=== PATIENT | male | born 1955 | race Caucasian/White ===

== ENCOUNTER 2021-03-24 09:22 | Inpatient (IN) | payer OTHER, SELFPAY ==
[2021-03-24] VITALS (73 sets, daily range): BP systolic 103–144; BP diastolic 53–73; PULSE 61–108; RESP 13–38; TEMP 35.6–36.6; O2SAT 86–97
--- NOTE | 2021-03-24 09:45 | RT.EKG_ITS ---
APPROVED REPORT Exam: Resting ECG Reason for Exam: sob Patient Location: E HR:86 bpm ECG Measurements Heart Rate 86 AXIS OR 148 P 53 QRSd 85 QRS 40 QT 352 T 23 QTc 422 Conclusion Sinus rhythm...normal P axis, V-rate 60- 99 Anteroseptal Q >40mS, V1-V2
--- NOTE | 2021-03-24 09:50 | DI.CT_ITS ---
Exam(s) CT CHEST PE CTA EXAM: CT CHEST PE CTA CLINICAL HISTORY: Covid +, sob. TECHNIQUE: Imaging Protocol: Axial CT angiography was performed with multi-slice acquisition and mu lti-planar and/or 3D reconstructions. CONTRAST MATERIAL: Intravenous: Omnipaque 350 Contrast volume:100 mL COMPARISON: No exams were available for comparison FINDINGS: Tracheobronchial tree: Patent where visualized. Pulmonary parenchyma: Multifocal bilateral ground-glass opacities are identified predominantly in the lower lobes. Mild centrilobular emphysema. No pulmonary nodules. Pulmonary Arteries: No evidence of filling defect to suggest pulmonary emboli. Mediastinum and Jill: Mildly enlarged reactive mediastinal and hilar lymph nodes. Small hiatal herni a. Visualized thyroid gland: Unremarkable. Pleura: No effusion or pneumothorax. Heart: Mild cardiomegaly. Coronary artery calcification. No pericardial effusion. Aorta: Thoracic aorta non-dilated. Atherosclerosis. No dissection. Upper abdomen: Unremarkable. Soft tissues: Unremarkable. Bones: Within normal limits for the patient's age. IMPRESSION: 1. No evidence of pulmonary embolism, thoracic aortic dissection or aneurysm. 2. Multifocal bilateral ground-glass opacities predominantly in the lower lobes. The findings are wetzel spicious for pneumonia and are consistent with COVID-19 pulmonary findings. 3. Results of this exam have been verbally communicated with provider. RADIATION DOSE DELIVERED: 329.2mGy.cm Total DLP DATA REPOSITORY: All CT scans at this facility are submitted to the National Radiology Data Registry (NRDR) Dose Index Registry (DIR) with the [employer] ([employer]). RADIATION OPTIMIZATION: All CT scans at this facility use at least one of these dose optimization te chniques: automated exposure control; mA and/or kV adjustment per patient size (includes targeted exa ms where dose is matched to clinical indication); or iterative reconstruction.
--- NOTE | 2021-03-24 09:53 | ED.GENADUL_ITS ---
Discharge Plan Disposition Patient Disposition: [facility] INPATIENT Condition: Serious Discharge Details Clinical Impression: COVID-19, DKA (diabetic ketoacidosis) Primary Care Provider: Unknown,Unknown ED Provider: Donavan Ness Home Meds and New Rx's Prescriptions: No Action No Known Home Meds RF: 0 Medical Decision Making This is a 65-year-old male, former smoker, denies significant past medical history who tested positive for Covid on March 13, developed symptoms on March 10. He was vaccinated, 2 doses of the Pfizer vaccine. He presents today for ongoing cough, shortness of breath, worse with exertion. He has been monitoring his home O2 sats and they have been in the mid to high 80s at home. Patient presents with mild tachycardia and tachypnea but is speaking in full sentences. O2 sat was noted to be 86% on room air. Patient states that he feels slightly short of breath now but if he was to get up, walk, exert himself things would become much worse. Lungs are diminished bilaterally lower bases. Given his presentation, will obtain cardiac work-up including a single troponin, EKG, will not obtain chest x-ray and rather go straight to CTA for potential PE rule out. Given his shortness of breath we will also obtain a BNP. Patient is 14 days into his Covid course and therefore is not a candidate for MAB. Will provide a single dose of IV Solu-Medrol Initial laboratory values reveal no evidence of leukocytosis or anemia. Procalcitonin of 0.4, lactate of 1.2. Patient with a slightly elevated anion gap. Glucose of 301 magnesium 2.0 BNP 272, troponin less than 0.05. Covid positive. Blood cultures pending CTA negative for PE, consistent with Covid Given the patient is Covid positive, requiring supplemental oxygen, I do believe the patient will require admission. Case discussed with Dr. Michaels, request a urinalysis to assess for potential ketones in DKA prior to admission. In the meantime we will also obtain blood cultures and provide IV doxycycline and Rocephin Urinalysis with greater than 160 ketones. Case once again discussed with Dr. Michaels, will initiate lactated Ringer's at 200/h and initiate a insulin drip per protocol. She will write admission orders. Imaging Data Radiologic Study: Attestation: I personally reviewed and interpreted this imaging study as follows: Imaging: CT Scan Radiologist's impression: Exam(s) a CT:CT chest PE CTA Exam(s) CT CHEST PE CTA EXAM: CT CHEST PE CTA CLINICAL HISTORY: Covid +, sob. TECHNIQUE: Imaging Protocol: Axial CT angiography was performed with multi- slice acquisition and multi-planar and/or 3D reconstructions. CONTRAST MATERIAL: Intravenous: Omnipaque 350 Contrast volume:100 mL COMPARISON: No exams were available for comparison FINDINGS: Tracheobronchial tree: Patent where visualized. Pulmonary parenchyma: Multifocal bilateral ground-glass opacities are identified predominantly in the lower lobes. Mild centrilobular emphysema. No pulmonary nodules. Pulmonary Arteries: No evidence of filling defect to suggest pulmonary emboli. Mediastinum and Jill: Mildly enlarged reactive mediastinal and hilar lymph nodes. Small hiatal hernia. Visualized thyroid gland: Unremarkable. Pleura: No effusion or pneumothorax. Heart: Mild cardiomegaly. Coronary artery calcification. No pericardial effusion. Aorta: Thoracic aorta non-dilated. Atherosclerosis. No dissection. Upper abdomen: Unremarkable. Soft tissues: Unremarkable. Bones: Within normal limits for the patient's age. IMPRESSION: 1. No evidence of pulmonary embolism, thoracic aortic dissection or aneurysm. 2. Multifocal bilateral ground-glass opacities predominantly in the lower lobes. The findings are suspicious for pneumonia and are consistent with COVID-19 pulmonary findings. 3. Results of this exam have been verbally communicated with provider. Lab Data Lab results reviewed: Yes I reviewed the patient's lab results. Labs: 03/24/21 12:47 Blood Blood Culture - Pending 03/24/21 12:30 Blood Blood Culture - Pending Laboratory Tests Range/Units 03/24/21 03/24/21 03/24/21 09:52 09:52 09:52 WBC (4.4-10.8) 10^3/uL RBC (4.36-5.78) 10^6/uL Hgb (13.5-17.5) g/dL Hct (40.0-50.0) % MCV (80-95) fL MCH (27.0-33.0) pg MCHC (32.0-36.0) % RDW (11.8-14.1) % Plt Count (130-400) 10^3/uL MPV (8.0-11.0) fL Immature Gran % Neutrophils % Lymphocytes % Monocytes % Eosinophils % Basophils % Nucleated RBC % % Absolute Neutrophils (1.2-6.7) 10^3/uL Absolute Lymphocytes (1.2-3.4) 10^3/uL Absolute Monocytes (0.1-0.8) 10^3/uL Absolute Eosinophils (0.0-0.7) 10^3/uL Absolute Basophils (0.0-0.2) 10^3/uL PT (9.3-11.0) sec 9.8 INR (0.9-1.1) 1.0 APTT (21.0-27.5) sec 26.4 VBG Lactate (0.6-1.4) mmol/L 1.2 Sodium (136-145) mmol/L Potassium (3.5-5.1) mmol/L Chloride (98-107) mmol/L Carbon Dioxide (21.0-32.0) mmol/L Anion Gap (3-11) mmol/L BUN (7-18) mg/dL Creatinine (0.70-1.30) mg/dL Estimated GFR/1.73 m2 (mL/min/1.73m2) Glucose (74-106) mg/dL Calcium (8.5-10.1) mg/dL Magnesium (1.8-2.4) mg/dL Total Bilirubin (0.2-1.0) mg/dL AST (15-37) U/L ALT (16-63) U/L Alkaline Phosphatase (46-116) U/L Troponin I (<0.06) ng/mL NT-Pro-B Natriuret Pep (<300) pg/mL 272 Total Protein (6.4-8.2) g/dL Albumin (3.4-5.0) g/dL Procalcitonin ng/mL 0.4 Urine Color (Yellow) Urine Clarity (Clear) Urine pH (5-8) Ur Specific Danese (1.005-1.025) Urine Protein (Negative) mg/dL Urine Ketones (Negative) mg/dL Urine Blood (Negative) Urine Nitrite (Negative) Urine Bilirubin (Negative) Urine Urobilinogen (Up TO 0.2) EU/dL Ur Leukocyte Esterase (Negative) Urine RBC (0-2) HPF Urine WBC (0-5) HPF Ur Epithelial Cells (Negative) HPF Urine Crystals (Negative) HPF Urine Bacteria (Negative) HPF Urine Casts (Negative) LPF Urine Mucus (Negative) Ur Culture Indicated? Urine Glucose (Negative) mg/dL COVID-19 Source SARS-CoV-2 (PCR) (Negative) Range/Units 03/24/21 03/24/21 03/24/21 09:52 09:52 10:10 WBC (4.4-10.8) 10^3/uL 10.37 RBC (4.36-5.78) 10^6/uL 4.67 Hgb (13.5-17.5) g/dL 14.0 Hct (40.0-50.0) % 42.0 MCV (80-95) fL 89.9 MCH (27.0-33.0) pg 30.0 MCHC (32.0-36.0) % 33.3 RDW (11.8-14.1) % 12.1 Plt Count (130-400) 10^3/uL 212 MPV (8.0-11.0) fL 10.4 Immature Gran % 0.6 Neutrophils % 86.1 Lymphocytes % 8.1 Monocytes % 5.1 Eosinophils % 0.0 Basophils % 0.1 Nucleated RBC % % 0 Absolute Neutrophils (1.2-6.7) 10^3/uL 8.93 H Absolute Lymphocytes (1.2-3.4) 10^3/uL 0.84 L Absolute Monocytes (0.1-0.8) 10^3/uL 0.53 Absolute Eosinophils (0.0-0.7) 10^3/uL 0.00 Absolute Basophils (0.0-0.2) 10^3/uL 0.01 PT (9.3-11.0) sec INR (0.9-1.1) APTT (21.0-27.5) sec VBG Lactate (0.6-1.4) mmol/L Sodium (136-145) mmol/L 132 L Potassium (3.5-5.1) mmol/L 4.0 Chloride (98-107) mmol/L 96 L Carbon Dioxide (21.0-32.0) mmol/L 18.0 L Anion Gap (3-11) mmol/L 18.0 H BUN (7-18) mg/dL 24 H Creatinine (0.70-1.30) mg/dL 1.3 Estimated GFR/1.73 m2 (mL/min/1.73m2) 55.06 Glucose (74-106) mg/dL 301 H Calcium (8.5-10.1) mg/dL 8.4 L Magnesium (1.8-2.4) mg/dL 2.0 Total Bilirubin (0.2-1.0) mg/dL 0.6 AST (15-37) U/L 19 ALT (16-63) U/L 17 Alkaline Phosphatase (46-116) U/L 65 Troponin I (<0.06) ng/mL < 0.05 NT-Pro-B Natriuret Pep (<300) pg/mL Total Protein (6.4-8.2) g/dL 7.0 Albumin (3.4-5.0) g/dL 2.3 L Procalcitonin ng/mL Urine Color (Yellow) Urine Clarity (Clear) Urine pH (5-8) Ur Specific Danese (1.005-1.025) Urine Protein (Negative) mg/dL Urine Ketones (Negative) mg/dL Urine Blood (Negative) Urine Nitrite (Negative) Urine Bilirubin (Negative) Urine Urobilinogen (Up TO 0.2) EU/dL Ur Leukocyte Esterase (Negative) Urine RBC (0-2) HPF Urine WBC (0-5) HPF Ur Epithelial Cells (Negative) HPF Urine Crystals (Negative) HPF Urine Bacteria (Negative) HPF Urine Casts (Negative) LPF Urine Mucus (Negative) Ur Culture Indicated? Urine Glucose (Negative) mg/dL COVID-19 Source Nasal/Nares SARS-CoV-2 (PCR) (Negative) POSITIVE A* Range/Units 03/24/21 13:00 WBC (4.4-10.8) 10^3/uL RBC (4.36-5.78) 10^6/uL Hgb (13.5-17.5) g/dL Hct (40.0-50.0) % MCV (80-95) fL MCH (27.0-33.0) pg MCHC (32.0-36.0) % RDW (11.8-14.1) % Plt Count (130-400) 10^3/uL MPV (8.0-11.0) fL Immature Gran % Neutrophils % Lymphocytes % Monocytes % Eosinophils % Basophils % Nucleated RBC % % Absolute Neutrophils (1.2-6.7) 10^3/uL Absolute Lymphocytes (1.2-3.4) 10^3/uL Absolute Monocytes (0.1-0.8) 10^3/uL Absolute Eosinophils (0.0-0.7) 10^3/uL Absolute Basophils (0.0-0.2) 10^3/uL PT (9.3-11.0) sec INR (0.9-1.1) APTT (21.0-27.5) sec VBG Lactate (0.6-1.4) mmol/L Sodium (136-145) mmol/L Potassium (3.5-5.1) mmol/L Chloride (98-107) mmol/L Carbon Dioxide (21.0-32.0) mmol/L Anion Gap (3-11) mmol/L BUN (7-18) mg/dL Creatinine (0.70-1.30) mg/dL Estimated GFR/1.73 m2 (mL/min/1.73m2) Glucose (74-106) mg/dL Calcium (8.5-10.1) mg/dL Magnesium (1.8-2.4) mg/dL Total Bilirubin (0.2-1.0) mg/dL AST (15-37) U/L ALT (16-63) U/L Alkaline Phosphatase (46-116) U/L Troponin I (<0.06) ng/mL NT-Pro-B Natriuret Pep (<300) pg/mL Total Protein (6.4-8.2) g/dL Albumin (3.4-5.0) g/dL Procalcitonin ng/mL Urine Color (Yellow) Yellow Urine Clarity (Clear) Sl Cloudy Urine pH (5-8) 5.5 Ur Specific Danese (1.005-1.025) 1.025 Urine Protein (Negative) mg/dL 100 H Urine Ketones (Negative) mg/dL >=160 H Urine Blood (Negative) Moderate H Urine Nitrite (Negative) Negative Urine Bilirubin (Negative) Negative Urine Urobilinogen (Up TO 0.2) EU/dL 0.2 Ur Leukocyte Esterase (Negative) Negative Urine RBC (0-2) HPF 10-20 H Urine WBC (0-5) HPF 0-2 Ur Epithelial Cells (Negative) HPF Moderate Urine Crystals (Negative) HPF Negative Urine Bacteria (Negative) HPF Moderate Urine Casts (Negative) LPF 3-5 Coarse Granular Urine Mucus (Negative) Trace Ur Culture Indicated? No/Sq. Contamination Urine Glucose (Negative) mg/dL 500 H COVID-19 Source SARS-CoV-2 (PCR) (Negative) ECG Data Attestation: I personally reviewed and interpreted this ECG (s) as follows: Interpretation: Please see official report by Dr. Rosario. Sinus rhythm, ventricular rate of 86. No STEMI HPI General Mode of arrival: ambulatory . Date/Time Provider Initiated Documentation: 03/24/21 09:26 . Limitations to Documentation: no limitations . Information obtained by: patient . HPI Narrative: This is a 65-year-old male, denies significant past medical history, former smoker, did receive his Covid vaccine x2 earlier this year, [employer],, diagnosed with Covid via outpatient test on March 13, states that he developed symptoms of a URI on the 10 March, now with worsening productive cough, shortness of breath, especially with exertion. He denies headache, fever, chills, neck pain, chest pain, back pain, abdominal pain, nausea, vomiting, change in bowel or bladder habits, pain or swelling in his legs. He states that he is in the process of moving to the area, has a primary care provider in [place], after he was diagnosed with Covid last Sunday he has not seen a provider or had any [id number] medications for his symptoms. He believes that he was most likely exposed to Covid from his sister who also has Covid but much milder symptoms. Related Data Home Medications Medication Instructions Recorded Confirmed Unknown [No Known Home Meds] 03/24/21 03/24/21 Allergies Allergy/AdvReac Type Severity Reaction Status Date / Time No Known Allergies Allergy Unverified 03/24/21 09:46 General Stated Complaint: RespSymp KRISTAL: 3 Review of Systems Constitutional Constitutional: Denies fatigue, Denies fever(s) and Denies headache(s) ENT Ears, Nose, Mouth, and Throat: Denies headache(s) and Denies neck pain Cardiovascular Cardiovascular: Denies chest pain and Reports dyspnea Respiratory Respiratory: Reports cough and Reports dyspnea Gastrointestinal Gastrointestinal: Denies abdominal pain, Denies nausea and Denies vomiting Genitourinary Genitourinary: Denies dysuria Musculoskeletal Musculoskeletal: Denies back pain and Denies neck pain Integumentary/Breasts Skin/Breast: Denies rash Neurologic Neurologic: Denies headache(s) Endocrine Endocrine: Denies fatigue [facility] Social History Smoking/Tobacco Use Status: Former Tobacco Use Tobacco: How many years used: 40 Smoking risk assessment performed?: Yes Do you feel safe at home: Yes Do you feel safe in your relationship?: Yes Exam Const General: cooperative, healthy appearing and comfortable Orientation: alert, awake and oriented x3 HENMT Head: normal to inspection, normocephalic and atraumatic Face and sinus: normal facial exam Mouth: moist mucous membranes Throat: posterior oropharynx normal Eyes General: appearance normal, both eyes and all related structures Conjunctivae: conjunctivae normal Neck Neck: normal visual inspection, full ROM, no lymphadenopathy, no meningeal signs, trachea midline and supple Resp Effort & Inspection: normal respiratory effort, able to speak in complete sentences, cough and tachypneic Auscultation: diminished lung sounds bilaterally in the lower lung ferreira Cardio Rate: tachycardic (102) Rhythm: regular rhythm GI Palpation: soft and nontender Back/Spine/Pelvis Back: No back tenderness Skin General skin exam: no rashes or lesions noted Neuro General: patient alert, patient awake, moves all extremities and no focal motor deficits Cognition: normal cognition Speech: speech normal Gait: normal gait Sensory Exam: no sensory deficits noted Extrem General: normal to inspection, full ROM, capillary refill normal, no pedal edema and no calf tenderness Psych Appearance: grossly normal Mental Status: mental status grossly normal Course Vital Signs Vital signs: Vital Signs Temperature 36.6 C 03/24/21 09:42 Pulse 101 H 03/24/21 09:42 Respiratory Rate 30 H 03/24/21 09:42 Blood Pressure 141/67 H 03/24/21 09:42 Pulse Oximetry 86 L 03/24/21 09:42 Temperature 36.6 C 03/24/21 09:42 Pulse 101 H 03/24/21 09:42 Respiratory Rate 30 H 03/24/21 09:42 Respiratory Effort Accessory Muscle Use 03/24/21 09:47 Respiratory Depth Normal 03/24/21 09:47 Blood Pressure 141/67 H 03/24/21 09:42 Pulse Oximetry 86 L 03/24/21 09:42 Oxygen Delivery Method Room Air 03/24/21 09:42 Oxygen Flow Rate 0 03/24/21 09:42 Pain Level 0 03/24/21 09:42 Critical Care Time Critical Care Time Critical Care Time: Yes Total Critical Care Time: 45 Attestation: Upon my evaluation, this patient had a high probability of clin ically significant, life-threatening deterioration due to their current medical conditions, which required my direct attention, intervention, and personal management. I have personally provided greater than 30 minutes of critical care time exclusive of the time spend on separately billable procedures. Time includes obtaining a history, examining the patient, pulse oximetry, review of laboratory data, radiology results, discussion with consultants, arranging urgent treatment with development of a management plan, evaluation of patient's response to treatment, and monitoring for potential decompensation. Interventions were performed as documented above.
[2021-03-24 10:04] LABS: Lactate 1.2 mmol/L (0.6-1.4)
[2021-03-24] MEDS: Normal Saline 1,000 ML 125 ML IV (10:04)
[2021-03-24 10:05] LABS: Abs Immature Grans 0.06 10^3/uL (0.0-0.06); Absolute Basophil Count 0.01 10^3/uL (0.0-0.2); Absolute Lymphocyte Count 0.84 10^3/uL (1.2-3.4); Absolute Monocyte Count 0.53 10^3/uL (0.1-0.8); Absolute Neutrophil Count 8.93 10^3/uL (1.2-6.7); Basophils % 0.1; Immature Grans % 0.6; Lymphocytes % 8.1; MCHC 33.3 % (32.0-36.0); MCV 89.9 fL (80-95); MPV 10.4 fL (8.0-11.0); Monocytes % 5.1; Neutrophils % 86.1; Nucleated RBC 0 %; Platelet Count 212 10^3/uL (130-400); RBC 4.67 10^6/uL (4.36-5.78); RDW 12.1 % (11.8-14.1); RDW-SD 40.1 fL; WBC 10.37 10^3/uL (4.4-10.8)
[2021-03-24] MEDS: methylPREDNISolone SUCC 125 MG VIAL IVP (10:08)
[2021-03-24 10:10] LABS: Source Nasal/Nares
[2021-03-24 10:21] LABS: PTT Activated 26.4 sec (21.0-27.5); Prothrombin Time 9.8 sec (9.3-11.0)
[2021-03-24 10:23] LABS: ALT 17 U/L (16-63); AST 19 U/L (15-37); Albumin 2.3 g/dL (3.4-5.0); Alkaline Phosphatase 65 U/L (46-116); BUN 24 mg/dL (7-18); Bilirubin, Total 0.6 mg/dL (0.2-1.0); CREATININE 1.3 mg/dL (0.70-1.30); Calcium 8.4 mg/dL (8.5-10.1); Chloride 96 mmol/L (98-107); Estimated GFR 55.06 (mL/min/1.73m2); Glucose 301 mg/dL (74-106); Sodium 132 mmol/L (136-145)
[2021-03-24 10:26] LABS: Troponin I < 0.05 ng/mL (<0.06)
[2021-03-24 10:29] LABS: NT-proBNP 272 pg/mL (<300)
[2021-03-24 10:44] LABS: Procalcitonin 0.4 ng/mL
[2021-03-24 10:51] LABS: COVID-19 PCR POSITIVE (Negative)
[2021-03-24] MEDS: Normal Saline - Diluent 50 ML VIAL IV (11:21)
[2021-03-24] MEDS: Normal Saline Flush 10 ML SYR IVP ×3 (11:22→19:43)
[2021-03-24] MEDS: Omnipaque 350 MG/ML 100 ML BTL IJ (11:22)
[2021-03-24] MEDS: Normal Saline 1,000 ML 1000 ML IV (12:30)
[2021-03-24] MEDS: cefTRIAXone 1 GM/50 ML BAG IVPB (12:45)
[2021-03-24 13:06] LABS: Bilirubin Negative (Negative); Blood Moderate (Negative); Clarity Sl Cloudy (Clear); Glucose 500 mg/dL (Negative); Ketones >=160 mg/dL (Negative); Leukocyte Esterase Negative (Negative); Nitrite Negative (Negative); Specific Gravity 1.025 (1.005-1.025); Urobilinogen 0.2 EU/dL (Up TO 0.2); pH 5.5 (5-8)
[2021-03-24] MEDS: DOXYCYCLINE 100 MG in Normal Saline 100 ML IVPB ×2 (13:14→20:57)
[2021-03-24 13:17] LABS: Bacteria Moderate HPF (Negative); Casts 3-5 Coarse Granular LPF (Negative); Crystals Negative HPF (Negative); Epithelial Cells Moderate HPF (Negative); Mucus Trace (Negative); WBC 0-2 HPF (0-5)
[2021-03-24 13:18] LABS: C & S Indicated? No/Sq. Contamination
--- NOTE | 2021-03-24 13:54 | NUR.NOTE ---
Nursing Note:Spoke with pharmacy regarding dexamethasone order, entered by Dr. Michaels for 1310. Already have given 125 mg solumedrol this AM. Pharmacy states to not give, but not sign off as 'not given' yet and will address with Dr. Michaels.
[2021-03-24 14:16] LABS: BE (Venous) -12 mmol/L (-2-3); HCO3 (Venous) 15 mmol/L (23-28); O2 Sat (Venous) 69 %; TCO2 (Venous) 14 mmol/L (24-29); pCO2 (Venous) 34 mmHg (41-51); pH (Venous) 7.25 (7.31-7.41); pO2 (Venous) 39 mmHg
[2021-03-24] MEDS: Lactated Ringers 1,000 ML 100 ML IV (14:16)
[2021-03-24 14:27] LABS: Anion Gap 19.5 mmol/L (3-11); BUN 24 mg/dL (7-18); CO2 16.5 mmol/L (21.0-32.0); CREATININE 1.2 mg/dL (0.70-1.30); Calcium 8.2 mg/dL (8.5-10.1); Chloride 98 mmol/L (98-107); Glucose 323 mg/dL (74-106); Potassium 4.5 mmol/L (3.5-5.1); Sodium 134 mmol/L (136-145)
[2021-03-24] MEDS: INSULIN REGULAR IN 0.9 % NACL 100 UNIT/100 ML BAG 6 UNIT IV (14:38)
--- NOTE | 2021-03-24 14:49 | NUR.NOTE ---
Nursing Note: Pt provided with meal per his request.
--- NOTE | 2021-03-24 14:56 | NUR.NOTE ---
Nursing Note: Pt hesitant about having insulin drip. Pt states he has been non- compliant with diabetic regimen lately and I guess maybe I NEED this. Does eventually consent to drip.
--- NOTE | 2021-03-24 14:59 | NUR.NOTE ---
Nursing Note: Attempted to call report at [phone] to ICU- room is not yet ready and staff are busy. Will call back.
[2021-03-24] MEDS: REMDESIVIR 200 MG in Normal Saline 250 ML 250 MG IVPB (16:30)
[2021-03-24] MEDS: Enoxaparin 40 MG/0.4 ML SYR SC (17:53)
--- NOTE | 2021-03-24 18:47 | W.PM.HP.N ---
Date of service: 03/24/21 Time of Service: 16:45 Assessment and Plan Assessment and plan (1) DKA (diabetic ketoacidosis): Status: Acute Assessment and plan: Admit to ICU. Treat with IV insulin infusion, IVF. Trend Q4Hr BMPs, Q1H accuchecks Consult DM education. Will extrapolate the dose of long acting insulin with overnight insulin drip data. (2) COVID-19: Status: Acute Assessment and plan: with hypoxia and suspected superimposed bacterial component. Start remdesivir, dexamethasone, baricitinib. Abx: doxycycline, ceftriaxone. Encourage proning. Provide vitamin supplementaion. Wean O2 as tolerated. Patient is full code. (3) Hypoxia: Status: Acute Assessment and plan: As above (4) Newly diagnosed diabetes: Status: Acute Assessment and plan: As above (5) DVT prophylaxis: Status: Acute Assessment and plan: lovenox sc (6) Discharge planning issues: Status: Acute Assessment and plan: Full Code Admit to ICU. Total Critical Care Time 45 minutes History of Present Illness History of Present Illness Chief Complaint: pulse ox read 89% at home; patient with COVID-19 Narrative: Mr Sarah is a 65 year old male with PMHx of prediabetes, who had stopped taking metformin over a year ago because he had heard that it does not mix well with COVID and denies any history of any other medical condition, who is fully vaccinated against COVID-19, who presented to [facility] ED today because his pulse ox at home was reading 88-89%. The patient describes a productive cough and feeling a little short of breath. He has been having symptoms of COVID for 14 days (malaise/fatigue/muscle aches/stuffy nose/diarrhea/poor appetite) and tested positive for COVID-19 10 days ago. In [facility] ED, his O2 sat on room air was 86%. He was placed on 2L of O2 to saturate >90%. The patient was noted to be in DKA while in the ED. He was initiated on insulin infusion. Hospitalist admission to the ICU was requested. Review of Systems Narrative: The patient also admits to chills. He does not know the color of his sputum. All systems reviewed & are unremarkable except as noted in HPI and below [facility] Medical History (Updated 03/24/21 @ 18:59 by Shaina Michaels MD) Prediabetes Family History (Updated 03/24/21 @ 18:54 by Shaina Michaels MD) Father Heart disease Paternal Aunt Stroke Mother Diabetes Cancer lymphoma Social History Smoking/Tobacco Use Status: Former Tobacco Use Tobacco: How many years used: 40 Smoking risk assessment performed?: Yes Do you feel safe at home: Yes Do you feel safe in your relationship?: Yes Meds Allergies and Home Medications Allergies Allergy/AdvReac Type Severity Reaction Status Date / Time No Known Allergies Allergy Unverified 03/24/21 09:46 Home Medications Medication Instructions Recorded Confirmed Type Unknown [No Known Home Meds] 03/24/21 03/24/21 History Exam Narrative Exam Narrative: General: Pleasant middle-aged male who is coughing but able to talk without dyspnea/tachypnea. Not cyanotic. Desaturates to 86% while talking. Neurological: A&ox3, no focal deficits Psychiatric: Appropriate speech pattern/content Skin: Visible skin intact HEENT: Atraumatic, normocephalic, EOMI, MMM, clear oropharynx, no submandibular or cervical lymphadenopathy, no goiter or JVD Cardiovascular: RRR, no m/r/g Lungs: Crackles at R base Gastrointestinal: soft, nontender, nondistended Genitourinary: deferred Extremities: no edema BLE's, no lesions on B feet, 2+ pedal pulses B Results Imaging Additional studies: CTA chest: 1. No evidence of pulmonary embolism, thoracic aortic dissection or aneurysm. 2. Multifocal bilateral ground-glass opacities predominantly in the lower lobes. The findings are suspicious for pneumonia and are consistent with COVID-19 pulmonary findings. 3. Results of this exam have been verbally communicated with provider. EKG: NSR, HR 86, nonspecific ST-T changes Labs Result diagrams: 03/24/21 09:52 03/24/21 14:01 Labs: Laboratory Results - last 24 hr 03/24/21 03/24/21 03/24/21 09:52 09:52 09:52 WBC RBC Hgb Hct MCV MCH MCHC RDW Plt Count MPV Immature Gran % Neutrophils % Lymphocytes % Monocytes % Eosinophils % Basophils % Nucleated RBC % Absolute Neutrophils Absolute Lymphocytes Absolute Monocytes Absolute Eosinophils Absolute Basophils PT 9.8 INR 1.0 APTT 26.4 VBG pH VBG pCO2 VBG pO2 VBG HCO3 VBG Total CO2 VBG O2 Saturation VBG Base Excess VBG Lactate 1.2 Sodium Potassium Chloride Carbon Dioxide Anion Gap BUN Creatinine Estimated GFR/1.73 m2 Glucose Calcium Magnesium Total Bilirubin AST ALT Alkaline Phosphatase Troponin I NT-Pro-B Natriuret Pep 272 Total Protein Albumin Procalcitonin 0.4 Urine Color Urine Clarity Urine pH Ur Specific [place] Urine Protein Urine Ketones Urine Blood Urine Nitrite Urine Bilirubin Urine Urobilinogen Ur Leukocyte Esterase Urine RBC Urine WBC Ur Epithelial Cells Urine Crystals Urine Bacteria Urine Casts Urine Mucus Ur Culture Indicated? Urine Glucose COVID-19 Source SARS-CoV-2 (PCR) 03/24/21 03/24/21 03/24/21 09:52 09:52 10:10 WBC 10.37 RBC 4.67 Hgb 14.0 Hct 42.0 MCV 89.9 MCH 30.0 MCHC 33.3 RDW 12.1 Plt Count 212 MPV 10.4 Immature Gran % 0.6 Neutrophils % 86.1 Lymphocytes % 8.1 Monocytes % 5.1 Eosinophils % 0.0 Basophils % 0.1 Nucleated RBC % 0 Absolute Neutrophils 8.93 H Absolute Lymphocytes 0.84 L Absolute Monocytes 0.53 Absolute Eosinophils 0.00 Absolute Basophils 0.01 PT INR APTT VBG pH VBG pCO2 VBG pO2 VBG HCO3 VBG Total CO2 VBG O2 Saturation VBG Base Excess VBG Lactate Sodium 132 L Potassium 4.0 Chloride 96 L Carbon Dioxide 18.0 L Anion Gap 18.0 H BUN 24 H Creatinine 1.3 Estimated GFR/1.73 m2 55.06 Glucose 301 H Calcium 8.4 L Magnesium 2.0 Total Bilirubin 0.6 AST 19 ALT 17 Alkaline Phosphatase 65 Troponin I < 0.05 NT-Pro-B Natriuret Pep Total Protein 7.0 Albumin 2.3 L Procalcitonin Urine Color Urine Clarity Urine pH Ur Specific [place] Urine Protein Urine Ketones Urine Blood Urine Nitrite Urine Bilirubin Urine Urobilinogen Ur Leukocyte Esterase Urine RBC Urine WBC Ur Epithelial Cells Urine Crystals Urine Bacteria Urine Casts Urine Mucus Ur Culture Indicated? Urine Glucose COVID-19 Source Nasal/Nares SARS-CoV-2 (PCR) POSITIVE A* 03/24/21 03/24/21 03/24/21 13:00 14:01 14:01 WBC RBC Hgb Hct MCV MCH MCHC RDW Plt Count MPV Immature Gran % Neutrophils % Lymphocytes % Monocytes % Eosinophils % Basophils % Nucleated RBC % Absolute Neutrophils Absolute Lymphocytes Absolute Monocytes Absolute Eosinophils Absolute Basophils PT INR APTT VBG pH 7.25 L VBG pCO2 34 L VBG pO2 39 VBG HCO3 15 L VBG Total CO2 14 L VBG O2 Saturation 69 VBG Base Excess -12 L VBG Lactate Sodium 134 L Potassium 4.5 Chloride 98 Carbon Dioxide 16.5 L Anion Gap 19.5 H BUN 24 H Creatinine 1.2 Estimated GFR/1.73 m2 >= 60.00 Glucose 323 H Calcium 8.2 L Magnesium Total Bilirubin AST ALT Alkaline Phosphatase Troponin I NT-Pro-B Natriuret Pep Total Protein Albumin Procalcitonin Urine Color Yellow Urine Clarity Sl Cloudy Urine pH 5.5 Ur Specific [place] 1.025 Urine Protein 100 H Urine Ketones >=160 H Urine Blood Moderate H Urine Nitrite Negative Urine Bilirubin Negative Urine Urobilinogen 0.2 Ur Leukocyte Esterase Negative Urine RBC 10-20 H Urine WBC 0-2 Ur Epithelial Cells Moderate Urine Crystals Negative Urine Bacteria Moderate Urine Casts 3-5 Coarse Granular Urine Mucus Trace Ur Culture Indicated? No/Sq. Contamination Urine Glucose 500 H COVID-19 Source SARS-CoV-2 (PCR) Last Vital Signs Temp 36.6 C 03/24/21 09:42 Pulse 86 03/24/21 16:00 Resp 35 H 03/24/21 16:01 BP 134/64 03/24/21 16:00 Pulse Ox 93 03/24/21 15:30
[2021-03-24] MEDS: Famotidine 20 MG TAB PO (19:41)
[2021-03-24] MEDS: Normal Saline 500 ML 30 ML IV (19:41)
[2021-03-24] MEDS: guaiFENesin 600 MG TABCR PO (19:41)
[2021-03-24] MEDS: Ascorbic Acid 500 MG TAB 1000 MG PO (19:41)
[2021-03-24 20:01] LABS: Anion Gap 18.3 mmol/L (3-11); BUN 26 mg/dL (7-18); CO2 17.7 mmol/L (21.0-32.0); CREATININE 1.2 mg/dL (0.70-1.30); Calcium 8.1 mg/dL (8.5-10.1); Chloride 101 mmol/L (98-107); Glucose 249 mg/dL (74-106); Sodium 137 mmol/L (136-145)
[2021-03-24 20:03] LABS: Potassium 3.4 mmol/L (3.5-5.1)
[2021-03-24] MEDS: POTASSIUM CHLORIDE/D5-0.9%NACL 1,000 ML 100 MEQ IV (21:39)
[2021-03-24] MEDS: Melatonin 3 MG TAB PO (22:28)
[2021-03-24 22:29] LABS: Anion Gap 10.1 mmol/L (3-11); BUN 27 mg/dL (7-18); CO2 21.9 mmol/L (21.0-32.0); CREATININE 1.1 mg/dL (0.70-1.30); Calcium 8.1 mg/dL (8.5-10.1); Chloride 105 mmol/L (98-107); Glucose 177 mg/dL (74-106); Potassium 3.1 mmol/L (3.5-5.1); Sodium 137 mmol/L (136-145)
[2021-03-25] VITALS (49 sets, daily range): BP systolic 90–132; BP diastolic 44–76; PULSE 52–161; RESP 13–31; TEMP 35.8–36.1; O2SAT 89–99
[2021-03-25 02:57] LABS: BUN 27 mg/dL (7-18); CREATININE 0.9 mg/dL (0.70-1.30); Chloride 111 mmol/L (98-107); Glucose 106 mg/dL (74-106); Potassium 3.3 mmol/L (3.5-5.1); Sodium 142 mmol/L (136-145)
[2021-03-25] MEDS: INSULIN REGULAR IN 0.9 % NACL 100 UNIT/100 ML BAG IV (06:12)
[2021-03-25] MEDS: POTASSIUM CHLORIDE/D5-0.9%NACL 1,000 ML 100 MEQ IV (06:15)
[2021-03-25 07:15] LABS: Abs Immature Grans 0.17 10^3/uL (0.0-0.06); Absolute Basophil Count 0.01 10^3/uL (0.0-0.2); Absolute Lymphocyte Count 1.31 10^3/uL (1.2-3.4); Absolute Monocyte Count 0.38 10^3/uL (0.1-0.8); Absolute Neutrophil Count 8.86 10^3/uL (1.2-6.7); Basophils % 0.1; HCT 38.2 % (40.0-50.0); HGB 13.1 g/dL (13.5-17.5); Immature Grans % 1.6; Lymphocytes % 12.2; MCH 29.9 pg (27.0-33.0); MCHC 34.3 % (32.0-36.0); MCV 87.2 fL (80-95); MPV 10.4 fL (8.0-11.0); Monocytes % 3.5; Neutrophils % 82.6; Nucleated RBC 0 %; Platelet Count 237 10^3/uL (130-400); RBC 4.38 10^6/uL (4.36-5.78); RDW 12.2 % (11.8-14.1); RDW-SD 39.5 fL; WBC 10.73 10^3/uL (4.4-10.8)
[2021-03-25 07:56] LABS: ALT 15 U/L (16-63); AST 22 U/L (15-37); Albumin 1.8 g/dL (3.4-5.0); Alkaline Phosphatase 50 U/L (46-116); Anion Gap 8.4 mmol/L (3-11); BUN 29 mg/dL (7-18); Bilirubin, Direct 0.1 mg/dL (0.0-0.2); Bilirubin, Total 0.3 mg/dL (0.2-1.0); C-Reactive Protein 17.64 mg/dL (0.0-0.3); CO2 23.6 mmol/L (21.0-32.0); Calcium 8.2 mg/dL (8.5-10.1); Chloride 111 mmol/L (98-107); Glucose 122 mg/dL (74-106); Magnesium 2.3 mg/dL (1.8-2.4); Potassium 3.6 mmol/L (3.5-5.1); Sodium 143 mmol/L (136-145)
[2021-03-25 08:10] LABS: D-Dimer 1189 ng/mlFEU (<500)
--- NOTE | 2021-03-25 08:14 | INITIAL_ITS ---
- If Service Date Differs Date of service: 03/25/21 Time of Service: 08:14 Care Management Initial Assess REASON FOR HOSPITALIZATION:: Covid-19, pneumonia with hypoxia, DKA PAST MEDICAL HISTORY/PAST SURGICAL HISTORY:: Prediabetes PREVIOUS FUNCTIONAL STATUS/SOCIAL/FAMILY SUPPORTS:: Lazaro resides in [place] with his significant other. His main support locally is listed as Melissa Mir. CURRENT FUNCTIONAL STATUS:: Lazaro is in the ICU being treated for Covid-19 pnemonia. ADVANCE DIRECTIVES:: None on file at [facility]. Has patient been provided with info about the portal/API?: No Did the patient sign up for the portal?: No CODE STATUS:: Full Code INSURANCE COVERAGE / FINANCIAL ISSUES:: Medicare. [employer] CURRENT HOME/COMMUNITY SERVICES/EQUIPMENT:: None, currently. PRIMARY CARE PHYSICIAN:: No local POTENTIAL DISCHARGE NEEDS:: Follow up appointments. PATIENT/FAMILY EDUCATION NEEDS:: Review discharge instructions, discuss Ask Me Three. ANTICIPATED BARRIERS TO DISCHARGE:: None identified. TRANSPORTATION:: Via private vehicle with significant other. PLAN:: Lazaro will return home when ready per MD. He will follow up with his PCP and plan of care as prescribed. He will transport via private vehicle with his significant other.
--- NOTE | 2021-03-25 08:20 | W.PM.PROGNOT ---
Date of Service Date of service: 03/25/21 Time of Service: 13:03 Assessment and Plan Assessment and plan (1) DKA (diabetic ketoacidosis): Status: Resolved Assessment and plan: Transitioned to basal bolus insulin. A1C >14.00 The patient was not open to receiving diabetes education with his ICU nurse today. DM education is consulted. I anticipate he will be discharged home on insulin. Qualifiers: Diabetes mellitus type: type 2 Diabetes mellitus complication detail: without coma Qualified Code(s): E11.10 - Type 2 diabetes mellitus with ketoacidosis without coma (2) COVID-19: Status: Acute Assessment and plan: Hypoxia worsened overnight. Will keep in ICU. Continue remdesivir, dexamethasone, baricitinib. D/c abx, per Dr Flores's recommendation. Encourage proning, IS, acapella. Provide vitamin supplementaion. Wean O2 as tolerated. (3) Hypoxia: Status: Acute Assessment and plan: As above (4) Newly diagnosed diabetes: Status: Acute Assessment and plan: As above (5) DVT prophylaxis: Status: Acute Assessment and plan: lovenox sc (6) Discharge planning issues: Status: Acute Assessment and plan: Full Code Keep in ICU. Total Critical Care Time 35 minutes. Subjective Subjective Interval history since last seen: Mr Sraah is off of insulin drip and tolerating PO. He reports DOYLE and diarrhea. Denies nausea, chest pain, any other discomfort. Has been proning. O2 went up to 5L last nigh, is 4L now - he desats to 86% with minimal exertion. Proned during the night. Loose cough - productive. Exam Narrative Exam Narrative: General: Pleasant middle-aged male, coughing, completing full sentences, desaturated to 86% while getting from the commode to bed. HEENT: EOMI, MMM Cardiovascular: RRR, no m/r/g Lungs: Crackles at R base, unchanged Gastrointestinal: soft, nontender, nondistended Extremities: no edema BLE's, no lesions on B feet, 2+ pedal pulses B Objective Last Vital Signs Temp 35.6 C L 03/24/21 23:35 Pulse 70 03/25/21 07:00 Resp 20 03/25/21 07:00 BP 96/50 L 03/25/21 07:00 Pulse Ox 93 03/25/21 07:00 Laboratory Results - last 24 hr 03/24/21 03/24/21 03/24/21 09:52 09:52 09:52 WBC RBC Hgb Hct MCV MCH MCHC RDW Plt Count MPV Immature Gran % Neutrophils % Lymphocytes % Monocytes % Eosinophils % Basophils % Nucleated RBC % Absolute Neutrophils Absolute Lymphocytes Absolute Monocytes Absolute Eosinophils Absolute Basophils PT 9.8 INR 1.0 APTT 26.4 D-Dimer VBG pH VBG pCO2 VBG pO2 VBG HCO3 VBG Total CO2 VBG O2 Saturation VBG Base Excess VBG Lactate 1.2 Sodium Potassium Chloride Carbon Dioxide Anion Gap BUN Creatinine Estimated GFR/1.73 m2 Glucose Calcium Magnesium Total Bilirubin Conjugated Bilirubin AST ALT Alkaline Phosphatase Troponin I C-Reactive Protein NT-Pro-B Natriuret Pep 272 Total Protein Albumin Procalcitonin 0.4 Urine Color Urine Clarity Urine pH Ur Specific [place] Urine Protein Urine Ketones Urine Blood Urine Nitrite Urine Bilirubin Urine Urobilinogen Ur Leukocyte Esterase Urine RBC Urine WBC Ur Epithelial Cells Urine Crystals Urine Bacteria Urine Casts Urine Mucus Ur Culture Indicated? Urine Glucose COVID-19 Source SARS-CoV-2 (PCR) 03/24/21 03/24/21 03/24/21 09:52 09:52 10:10 WBC 10.37 RBC 4.67 Hgb 14.0 Hct 42.0 MCV 89.9 MCH 30.0 MCHC 33.3 RDW 12.1 Plt Count 212 MPV 10.4 Immature Gran % 0.6 Neutrophils % 86.1 Lymphocytes % 8.1 Monocytes % 5.1 Eosinophils % 0.0 Basophils % 0.1 Nucleated RBC % 0 Absolute Neutrophils 8.93 H Absolute Lymphocytes 0.84 L Absolute Monocytes 0.53 Absolute Eosinophils 0.00 Absolute Basophils 0.01 PT INR APTT D-Dimer VBG pH VBG pCO2 VBG pO2 VBG HCO3 VBG Total CO2 VBG O2 Saturation VBG Base Excess VBG Lactate Sodium 132 L Potassium 4.0 Chloride 96 L Carbon Dioxide 18.0 L Anion Gap 18.0 H BUN 24 H Creatinine 1.3 Estimated GFR/1.73 m2 55.06 Glucose 301 H Calcium 8.4 L Magnesium 2.0 Total Bilirubin 0.6 Conjugated Bilirubin AST 19 ALT 17 Alkaline Phosphatase 65 Troponin I < 0.05 C-Reactive Protein NT-Pro-B Natriuret Pep Total Protein 7.0 Albumin 2.3 L Procalcitonin Urine Color Urine Clarity Urine pH Ur Specific [place] Urine Protein Urine Ketones Urine Blood Urine Nitrite Urine Bilirubin Urine Urobilinogen Ur Leukocyte Esterase Urine RBC Urine WBC Ur Epithelial Cells Urine Crystals Urine Bacteria Urine Casts Urine Mucus Ur Culture Indicated? Urine Glucose COVID-19 Source Nasal/Nares SARS-CoV-2 (PCR) POSITIVE A* 03/24/21 03/24/21 03/24/21 13:00 14:01 14:01 WBC RBC Hgb Hct MCV MCH MCHC RDW Plt Count MPV Immature Gran % Neutrophils % Lymphocytes % Monocytes % Eosinophils % Basophils % Nucleated RBC % Absolute Neutrophils Absolute Lymphocytes Absolute Monocytes Absolute Eosinophils Absolute Basophils PT INR APTT D-Dimer VBG pH 7.25 L VBG pCO2 34 L VBG pO2 39 VBG HCO3 15 L VBG Total CO2 14 L VBG O2 Saturation 69 VBG Base Excess -12 L VBG Lactate Sodium 134 L Potassium 4.5 Chloride 98 Carbon Dioxide 16.5 L Anion Gap 19.5 H BUN 24 H Creatinine 1.2 Estimated GFR/1.73 m2 >= 60.00 Glucose 323 H Calcium 8.2 L Magnesium Total Bilirubin Conjugated Bilirubin AST ALT Alkaline Phosphatase Troponin I C-Reactive Protein NT-Pro-B Natriuret Pep Total Protein Albumin Procalcitonin Urine Color Yellow Urine Clarity Sl Cloudy Urine pH 5.5 Ur Specific [place] 1.025 Urine Protein 100 H Urine Ketones >=160 H Urine Blood Moderate H Urine Nitrite Negative Urine Bilirubin Negative Urine Urobilinogen 0.2 Ur Leukocyte Esterase Negative Urine RBC 10-20 H Urine WBC 0-2 Ur Epithelial Cells Moderate Urine Crystals Negative Urine Bacteria Moderate Urine Casts 3-5 Coarse Granular Urine Mucus Trace Ur Culture Indicated? No/Sq. Contamination Urine Glucose 500 H COVID-19 Source SARS-CoV-2 (PCR) 03/24/21 03/24/21 03/25/21 19:15 22:00 02:30 WBC RBC Hgb Hct MCV MCH MCHC RDW Plt Count MPV Immature Gran % Neutrophils % Lymphocytes % Monocytes % Eosinophils % Basophils % Nucleated RBC % Absolute Neutrophils Absolute Lymphocytes Absolute Monocytes Absolute Eosinophils Absolute Basophils PT INR APTT D-Dimer VBG pH VBG pCO2 VBG pO2 VBG HCO3 VBG Total CO2 VBG O2 Saturation VBG Base Excess VBG Lactate Sodium 137 137 142 Potassium 3.4 L D 3.1 L 3.3 L Chloride 101 105 111 H Carbon Dioxide 17.7 L 21.9 24.0 Anion Gap 18.3 H 10.1 7.0 BUN 26 H 27 H 27 H Creatinine 1.2 1.1 0.9 Estimated GFR/1.73 m2 >= 60.00 >= 60.00 >= 60.00 Glucose 249 H 177 H 106 D Calcium 8.1 L 8.1 L 8.0 L Magnesium Total Bilirubin Conjugated Bilirubin AST ALT Alkaline Phosphatase Troponin I C-Reactive Protein NT-Pro-B Natriuret Pep Total Protein Albumin Procalcitonin Urine Color Urine Clarity Urine pH Ur Specific [place] Urine Protein Urine Ketones Urine Blood Urine Nitrite Urine Bilirubin Urine Urobilinogen Ur Leukocyte Esterase Urine RBC Urine WBC Ur Epithelial Cells Urine Crystals Urine Bacteria Urine Casts Urine Mucus Ur Culture Indicated? Urine Glucose COVID-19 Source SARS-CoV-2 (PCR) 03/25/21 03/25/21 03/25/21 06:40 06:40 06:40 WBC 10.73 RBC 4.38 Hgb 13.1 L Hct 38.2 L MCV 87.2 MCH 29.9 MCHC 34.3 RDW 12.2 Plt Count 237 MPV 10.4 Immature Gran % 1.6 Neutrophils % 82.6 Lymphocytes % 12.2 Monocytes % 3.5 Eosinophils % 0.0 Basophils % 0.1 Nucleated RBC % 0 Absolute Neutrophils 8.86 H Absolute Lymphocytes 1.31 Absolute Monocytes 0.38 Absolute Eosinophils 0.00 Absolute Basophils 0.01 PT INR APTT D-Dimer 1189 H VBG pH VBG pCO2 VBG pO2 VBG HCO3 VBG Total CO2 VBG O2 Saturation VBG Base Excess VBG Lactate Sodium 143 Potassium 3.6 Chloride 111 H Carbon Dioxide 23.6 Anion Gap 8.4 BUN 29 H Creatinine 1.0 Estimated GFR/1.73 m2 >= 60.00 Glucose 122 H Calcium 8.2 L Magnesium 2.3 Total Bilirubin 0.3 Conjugated Bilirubin 0.1 AST 22 ALT 15 L Alkaline Phosphatase 50 Troponin I C-Reactive Protein 17.64 H NT-Pro-B Natriuret Pep Total Protein 6.0 L Albumin 1.8 L Procalcitonin Urine Color Urine Clarity Urine pH Ur Specific [place] Urine Protein Urine Ketones Urine Blood Urine Nitrite Urine Bilirubin Urine Urobilinogen Ur Leukocyte Esterase Urine RBC Urine WBC Ur Epithelial Cells Urine Crystals Urine Bacteria Urine Casts Urine Mucus Ur Culture Indicated? Urine Glucose COVID-19 Source SARS-CoV-2 (PCR)
[2021-03-25 08:25] LABS: Ferritin 887 ng/mL (26-388)
[2021-03-25 09:02] LABS: NT-proBNP 564 pg/mL (<300)
[2021-03-25 09:14] LABS: Hemoglobin A1C > 14.0 % (<5.7)
[2021-03-25] MEDS: Dexamethasone 10 MG/ML VIAL 6 MG IVP (10:14)
[2021-03-25] MEDS: Famotidine 20 MG TAB PO ×2 (10:14→19:38)
[2021-03-25] MEDS: Cholecalciferol (Vitamin D3) 1,000 UNIT TAB 2000 UNITS PO (10:14)
[2021-03-25] MEDS: guaiFENesin 600 MG TABCR PO ×2 (10:14→19:38)
[2021-03-25] MEDS: Ascorbic Acid 500 MG TAB 1000 MG PO ×2 (10:15→19:38)
[2021-03-25] MEDS: DOXYCYCLINE 100 MG in Normal Saline 100 ML IVPB (10:15)
[2021-03-25] MEDS: Normal Saline Flush 10 ML SYR IVP (10:16)
[2021-03-25] MEDS: Insulin Glargine 300 UNITS/3 ML PEN 15 UNITS SC ×2 (10:25→22:56)
--- NOTE | 2021-03-25 11:48 | W.DIABETESNO ---
Date of service: 03/25/21 Time of Service: 11:49 Diabetes Note NOTE: Acknowledge consult for DSMES. Given pt's clinical status at the moment, it is not indicated. Will follow up with pt. when he improves clinically to assess his diabetes education needs. Blood glucose is now at target. IV insulin d/c'd. Now on Lantus and correction. Recent A1C is greater than 14% suggesting poor glycemic management prior to admission. BMI is 24.4 kg/m2 which is WNL. Will continue to follow progress. Time Spent in Nutritional Counseling and Treatment: 0
--- NOTE | 2021-03-25 11:53 | PUCC_ITS ---
General Date of Service Date of service: 03/25/21 Time of Service: 07:30 Reason for Admission to ICU: COVID-19 pneumonia and DKA. Assessment and Plan Assessment and plan (1) COVID-19: Status: Acute (2) DKA (diabetic ketoacidosis): Status: Acute Qualifiers: Diabetes mellitus type: type 2 Diabetes mellitus complication detail: without coma Qualified Code(s): E11.10 - Type 2 diabetes mellitus with ketoacidosis without coma (3) Respiratory failure with hypoxia: Status: Acute Assessment and plan: This is a 65-year-old man who self discontinued Metformin for his diabetes was found to be in DKA in the setting of COVID-19 infection. Hemoglobin A1c is 14% and given that plus his now diagnosed DKA (albeit a very mild case) he should likely go on long-term insulin. The patient was very against this proposal but is willing to take subcu insulin while in the hospital. He does have imaging abnormalities from his Covid as well as elevated inflammatory markers. He is weaning from his oxygen requirements which are relatively mild at this point. Qualifiers: Chronicity: acute Qualified Code(s): J96.01 - Acute respiratory failure with hypoxia Recommendations Pulmonary: Hypoxic respiratory failure - supplemental O2 to a goal sat >90% - recommend incentive spirometry and VibraPEP - proning/side sleeping as able - recommend discontinuing fluids once off insuling infusion Cardiac: No acute concerns Renal: No acute concerns I&O: Intake & Output 03/22/21 03/23/21 03/24/21 03/25/21 23:59 23:59 23:59 23:59 Intake Total 2699.100 / 2699.100 874.967 / 874.967 Output Total 800 / 800 475 / 475 Balance 1899.100 / 1899.100 399.967 / 399.967 Weight 69 kg 68.7 kg Daily Fluid Goal:: even GI Nutrition: Ok for diet Date of Last Bowel Movement: 03/24/21 Infectious Disease: COVID-19 Pneumonia - agree with Decadron and barcitinib - given he was diagnosed 10 days ago remdesivir is unlikely to provide much benefit - proning - if her were to decompensate or require increasing amounts of O2, would recommend CPAP - no utility in ABG's - pulse ox is accurate - continue to trend inflammatory markers - IS and VibraPEP as above Hematologic: No acute concerns Neurologic: No acute concerns Endocrine: DKA - he can eat - if he tolerates this can turn off insulin drip - stop IVF when insulin drip is off - insulin naive - weight based would be approx 17, recommend 15U subq now - recommend sliding scale insulin - recommend 5U prandial insulin - recommend endocrinology outpatient referral - would recommend this patient be discharged on insulin Lines: PIV Prophylaxis: Lovenox Pepcid - for steroid use Code Status: Resuscitation Status Full Code Subjective Critical and life-threatening events over the past 24 hours: This is a 65-year-old male who was admitted to the ICU for COVID-19 and DKA. He has a history of prediabetes and although was started on Metformin he stopped this over a year ago as he understood it could cause harm if he contracted Covid. Both him and his sister contracted Covid approximately around the same time from an unknown source. Both him and his sister are vaccinated. He presented to the emergency department because his home pulse ox was reading 88%. He has been having some constitutional symptoms of Covid and was tested + 10 days ago. He was found to be in DKA in the emergency department. He was started on DKA insulin protocol and sent to the ICU for further management. Based on his initial chemistries his DKA was extremely mild in nature and likely could have been treated with IV fluid resuscitation and subcu insulin. This morning on my assessment he is significant only proved with a closed And a normal bicarb. The patient states that he feels as though he has an appetite and would be willing to eat and drink on his own. He is having some shortness of breath but is actively being weaned from his oxygen support. Exam Const General: no acute distress Nutritional Appearance: well nourished [facility] Head: normocephalic Ears: external ears normal and no periauricular adenopathy General nose exam: nasal mucous membranes and turbinates normal Face and sinus: sinuses nontender Mouth: oropharynx normal and moist mucous membranes Teeth and gingiva: dentition normal Eyes General: appearance normal, both eyes and all related structures Pupils: PERRL Neck Neck: normal visual inspection and no lymphadenopathy Chest Chest: normal inspection of the chest Resp Effort & Inspection: normal respiratory effort Auscultation: diminished lung sounds, no rales, no rhonchi and no wheezes Cardio Rate: regular rate Rhythm: regular rhythm Heart Sounds: S1 normal, S2 normal and no murmurs Pulses: radial pulses present bilaterally GI Inspection: normal to inspection Palpation: soft Skin General skin exam: no rashes or lesions noted Neuro General: patient alert, patient awake and patient oriented x3 Extrem General: no clubbing, cyanosis or edema Psych Mental Status: mental status grossly normal Affect: normal affect Attitude: cooperative Most Recent VS/Results Last Vital Signs Temp 35.8 C L 03/25/21 10:00 Pulse 161 H 03/25/21 11:00 Resp 29 H 03/25/21 11:01 BP 129/59 L 03/25/21 11:00 Pulse Ox 89 L 03/25/21 11:01 Laboratory Results - last 24 hr 03/24/21 03/24/21 03/24/21 13:00 14:01 14:01 WBC RBC Hgb Hct MCV MCH MCHC RDW Plt Count MPV Immature Gran % Neutrophils % Lymphocytes % Monocytes % Eosinophils % Basophils % Nucleated RBC % Absolute Neutrophils Absolute Lymphocytes Absolute Monocytes Absolute Eosinophils Absolute Basophils D-Dimer ABG Sample Site ABG pH ABG pCO2 ABG pO2 ABG HCO3 ABG Total CO2 ABG O2 Saturation ABG Base Excess VBG pH 7.25 L VBG pCO2 34 L VBG pO2 39 VBG HCO3 15 L VBG Total CO2 14 L VBG O2 Saturation 69 VBG Base Excess -12 L Oxygen Liter Flow FiO2 Sodium 134 L Potassium 4.5 Chloride 98 Carbon Dioxide 16.5 L Anion Gap 19.5 H BUN 24 H Creatinine 1.2 Estimated GFR/1.73 m2 >= 60.00 Glucose 323 H Hemoglobin A1c Calcium 8.2 L Magnesium Ferritin Total Bilirubin Conjugated Bilirubin AST ALT Alkaline Phosphatase C-Reactive Protein NT-Pro-B Natriuret Pep Total Protein Albumin Urine Color Yellow Urine Clarity Sl Cloudy Urine pH 5.5 Ur Specific Cisco 1.025 Urine Protein 100 H Urine Ketones >=160 H Urine Blood Moderate H Urine Nitrite Negative Urine Bilirubin Negative Urine Urobilinogen 0.2 Ur Leukocyte Esterase Negative Urine RBC 10-20 H Urine WBC 0-2 Ur Epithelial Cells Moderate Urine Crystals Negative Urine Bacteria Moderate Urine Casts 3-5 Coarse Granular Urine Mucus Trace Ur Culture Indicated? No/Sq. Contamination Urine Glucose 500 H 03/24/21 03/24/21 03/25/21 19:15 22:00 02:30 WBC RBC Hgb Hct MCV MCH MCHC RDW Plt Count MPV Immature Gran % Neutrophils % Lymphocytes % Monocytes % Eosinophils % Basophils % Nucleated RBC % Absolute Neutrophils Absolute Lymphocytes Absolute Monocytes Absolute Eosinophils Absolute Basophils D-Dimer ABG Sample Site ABG pH ABG pCO2 ABG pO2 ABG HCO3 ABG Total CO2 ABG O2 Saturation ABG Base Excess VBG pH VBG pCO2 VBG pO2 VBG HCO3 VBG Total CO2 VBG O2 Saturation VBG Base Excess Oxygen Liter Flow FiO2 Sodium 137 137 142 Potassium 3.4 L D 3.1 L 3.3 L Chloride 101 105 111 H Carbon Dioxide 17.7 L 21.9 24.0 Anion Gap 18.3 H 10.1 7.0 BUN 26 H 27 H 27 H Creatinine 1.2 1.1 0.9 Estimated GFR/1.73 m2 >= 60.00 >= 60.00 >= 60.00 Glucose 249 H 177 H 106 D Hemoglobin A1c Calcium 8.1 L 8.1 L 8.0 L Magnesium Ferritin Total Bilirubin Conjugated Bilirubin AST ALT Alkaline Phosphatase C-Reactive Protein NT-Pro-B Natriuret Pep Total Protein Albumin Urine Color Urine Clarity Urine pH Ur Specific Cisco Urine Protein Urine Ketones Urine Blood Urine Nitrite Urine Bilirubin Urine Urobilinogen Ur Leukocyte Esterase Urine RBC Urine WBC Ur Epithelial Cells Urine Crystals Urine Bacteria Urine Casts Urine Mucus Ur Culture Indicated? Urine Glucose 03/25/21 03/25/21 03/25/21 06:40 06:40 06:40 WBC 10.73 RBC 4.38 Hgb 13.1 L Hct 38.2 L MCV 87.2 MCH 29.9 MCHC 34.3 RDW 12.2 Plt Count 237 MPV 10.4 Immature Gran % 1.6 Neutrophils % 82.6 Lymphocytes % 12.2 Monocytes % 3.5 Eosinophils % 0.0 Basophils % 0.1 Nucleated RBC % 0 Absolute Neutrophils 8.86 H Absolute Lymphocytes 1.31 Absolute Monocytes 0.38 Absolute Eosinophils 0.00 Absolute Basophils 0.01 D-Dimer ABG Sample Site ABG pH ABG pCO2 ABG pO2 ABG HCO3 ABG Total CO2 ABG O2 Saturation ABG Base Excess VBG pH VBG pCO2 VBG pO2 VBG HCO3 VBG Total CO2 VBG O2 Saturation VBG Base Excess Oxygen Liter Flow FiO2 Sodium 143 Potassium 3.6 Chloride 111 H Carbon Dioxide 23.6 Anion Gap 8.4 BUN 29 H Creatinine 1.0 Estimated GFR/1.73 m2 >= 60.00 Glucose 122 H Hemoglobin A1c > 14.0 H Calcium 8.2 L Magnesium 2.3 Ferritin 887 H Total Bilirubin 0.3 Conjugated Bilirubin 0.1 AST 22 ALT 15 L Alkaline Phosphatase 50 C-Reactive Protein 17.64 H NT-Pro-B Natriuret Pep 564 H Total Protein 6.0 L Albumin 1.8 L Urine Color Urine Clarity Urine pH Ur Specific Cisco Urine Protein Urine Ketones Urine Blood Urine Nitrite Urine Bilirubin Urine Urobilinogen Ur Leukocyte Esterase Urine RBC Urine WBC Ur Epithelial Cells Urine Crystals Urine Bacteria Urine Casts Urine Mucus Ur Culture Indicated? Urine Glucose 03/25/21 03/25/21 06:40 07:56 WBC RBC Hgb Hct MCV MCH MCHC RDW Plt Count MPV Immature Gran % Neutrophils % Lymphocytes % Monocytes % Eosinophils % Basophils % Nucleated RBC % Absolute Neutrophils Absolute Lymphocytes Absolute Monocytes Absolute Eosinophils Absolute Basophils D-Dimer 1189 H ABG Sample Site Cancelled ABG pH Cancelled ABG pCO2 Cancelled ABG pO2 Cancelled ABG HCO3 Cancelled ABG Total CO2 Cancelled ABG O2 Saturation Cancelled ABG Base Excess Cancelled VBG pH VBG pCO2 VBG pO2 VBG HCO3 VBG Total CO2 VBG O2 Saturation VBG Base Excess Oxygen Liter Flow Cancelled FiO2 Cancelled Sodium Potassium Chloride Carbon Dioxide Anion Gap BUN Creatinine Estimated GFR/1.73 m2 Glucose Hemoglobin A1c Calcium Magnesium Ferritin Total Bilirubin Conjugated Bilirubin AST ALT Alkaline Phosphatase C-Reactive Protein NT-Pro-B Natriuret Pep Total Protein Albumin Urine Color Urine Clarity Urine pH Ur Specific Cisco Urine Protein Urine Ketones Urine Blood Urine Nitrite Urine Bilirubin Urine Urobilinogen Ur Leukocyte Esterase Urine RBC Urine WBC Ur Epithelial Cells Urine Crystals Urine Bacteria Urine Casts Urine Mucus Ur Culture Indicated? Urine Glucose Review of Systems All systems reviewed & are unremarkable except as noted in HPI and below Time spent with patient Time spent in Critical Care: 45 Time spent in Critical care included: Coordination of care, Chart review, Documenting critically ill care, Time at immediate bedside and Discussing critically ill care with other medical staff
[2021-03-25] MEDS: Insulin Aspart 300 UNITS/3 ML PEN SC ×3 (12:00→22:56)
--- NOTE | 2021-03-25 12:08 | PHA.REVIEW ---
<Ke [place] - Last Filed: 03/25/21 12:08> Pharmacy Admission Review - Admission Clinical Review (Last Updated 03/24/21 @ 18:53 by Shaina Michaels MD) Discharge planning issues (Acute) DVT prophylaxis (Acute) Hypoxia (Acute) Newly diagnosed diabetes (Acute) COVID-19 (Acute) DKA (diabetic ketoacidosis) (Acute) No Known Allergies Allergy (Unverified 03/24/21 09:46) Resuscitation Status Full Code Height 5 ft 6 in Weight 68.7 kg - Renal Dosing Renal Dosing: BUN 29 mg/dL (7-18) H 03/25/21 06:40 Creatinine 1.0 mg/dL (0.70-1.30) 03/25/21 06:40 Medications needing adjustments: Reviewed List of meds needing interventions: eCrCl 64 ml/min - Anticoagulation Anticoagulation: Hgb 13.1 g/dL (13.5-17.5) L 03/25/21 06:40 Hct 38.2 % (40.0-50.0) L 03/25/21 06:40 Plt Count 237 10^3/uL (130-400) 03/25/21 06:40 INR 1.0 (0.9-1.1) 03/24/21 09:52 Creatinine 1.0 mg/dL (0.70-1.30) 03/25/21 06:40 DVT Prophylaxis: Reviewed Medications: Enoxaparin (low dose) - Opiate Usage Evaluate Pain Scale/Pains Meds: N/A - Relevant Labs Sodium 143 mmol/L (136-145) 03/25/21 06:40 Potassium 3.6 mmol/L (3.5-5.1) 03/25/21 06:40 Chloride 111 mmol/L (98-107) H 03/25/21 06:40 Magnesium 2.3 mg/dL (1.8-2.4) 03/25/21 06:40 C-Reactive Protein 17.64 mg/dL (0.0-0.3) H 03/25/21 06:40 Electrolytes, C-Reactive P, ESR: Reviewed - DM Control DM Control: Glucose 122 mg/dL (74-106) H 03/25/21 06:40 Hemoglobin A1c > 14.0 % (<5.7) H 03/25/21 06:40 Finger Stick Blood Glucose 152 Finger Stick Blood Glucose 152 Finger Stick Blood Glucose 152 Finger Stick Blood Glucose 118 Finger Stick Blood Glucose 118 Finger Stick Blood Glucose 118 Finger Stick Blood Glucose 140 Finger Stick Blood Glucose 140 Finger Stick Blood Glucose 130 Finger Stick Blood Glucose 130 Finger Stick Blood Glucose 128 Finger Stick Blood Glucose 128 Finger Stick Blood Glucose 127 Finger Stick Blood Glucose 127 Finger Stick Blood Glucose 114 Finger Stick Blood Glucose 114 Insulin Dosing: Reviewed (Insulin gtt will hopefully be dc'd today, basal insulin has been started this AM plus SS with meals) - Heart Failure/LA Heart Failure/LA: Troponin I < 0.05 ng/mL (<0.06) 03/24/21 09:52 NT-Pro-B Natriuret Pep 564 pg/mL (<300) H 03/25/21 06:40 EF%, APRIL's, B-Blockers, Diuretics: Reviewed - BP Control BP Control: Blood Pressure 129/59 Blood Pressure 109/58 Blood Pressure 109/56 Blood Pressure 91/76 Blood Pressure 96/50 Blood Pressure 103/58 Blood Pressure 96/57 Blood Pressure 95/53 Blood Pressure 96/52 Blood Pressure 92/50 Blood Pressure 94/48 If elevated: Reviewed - Qtc Review List meds needing interventions: QTc 422 on admission - IV to PO Switch IV Medications: Reviewed <Vicki Vee - Last Filed: 03/27/21 13:58> Pharmacy Admission Review - Admission Clinical Review (Last Updated 03/24/21 @ 18:53 by Shaina Michaels MD) Respiratory failure with hypoxia (Acute) Discharge planning issues (Acute) DVT prophylaxis (Acute) Hypoxia (Acute) Newly diagnosed diabetes (Acute) COVID-19 (Acute) No Known Allergies Allergy (Unverified 03/24/21 09:46) Resuscitation Status Full Code Height 5 ft 6 in Weight 69.1 kg - Renal Dosing Renal Dosing: BUN 31 mg/dL (7-18) H 03/27/21 07:20 Creatinine 0.8 mg/dL (0.70-1.30) 03/27/21 07:20 - Anticoagulation Anticoagulation: Hgb 13.1 g/dL (13.5-17.5) L 03/27/21 07:20 Hct 37.4 % (40.0-50.0) L 03/27/21 07:20 Plt Count 288 10^3/uL (130-400) 03/27/21 07:20 INR 1.0 (0.9-1.1) 03/24/21 09:52 Creatinine 0.8 mg/dL (0.70-1.30) 03/27/21 07:20 - Relevant Labs Sodium 147 mmol/L (136-145) H 03/27/21 07:20 Potassium 3.7 mmol/L (3.5-5.1) 03/27/21 07:20 Chloride 114 mmol/L (98-107) H 03/27/21 07:20 Magnesium 2.5 mg/dL (1.8-2.4) H 03/26/21 06:50 C-Reactive Protein 4.22 mg/dL (0.0-0.3) H 03/27/21 07:20 - DM Control DM Control: Glucose 65 mg/dL (74-106) L D 03/27/21 07:20 Hemoglobin A1c > 14.0 % (<5.7) H 03/25/21 06:40 Finger Stick Blood Glucose 193 Finger Stick Blood Glucose 193 Finger Stick Blood Glucose 193 Finger Stick Blood Glucose 65 - Heart Failure/LA Heart Failure/LA: Troponin I < 0.05 ng/mL (<0.06) 03/24/21 09:52 NT-Pro-B Natriuret Pep 564 pg/mL (<300) H 03/25/21 06:40 - BP Control BP Control: Blood Pressure 113/51 Blood Pressure 97/58 Pharmacy Review - Subjective Subjective: improvement - Objective Objective: FS 65. per RT pt does well if in prone position. needs O2 otherwise - Assessment Assessment: basal/bolus insulin. per md:Continue Remdesivir, Decadron, baricitinib along with pulmonary toiletry and proning and supplemental oxygen. remdesivir day 4 - Plan Plan: follow FS
[2021-03-25 12:31] LABS: Anion Gap 9.9 mmol/L (3-11); BUN 28 mg/dL (7-18); CO2 20.1 mmol/L (21.0-32.0); CREATININE 1.1 mg/dL (0.70-1.30); Calcium 7.5 mg/dL (8.5-10.1); Chloride 112 mmol/L (98-107); Glucose 250 mg/dL (74-106); Potassium 3.8 mmol/L (3.5-5.1); Sodium 142 mmol/L (136-145)
[2021-03-25] MEDS: Enoxaparin 40 MG/0.4 ML SYR SC (15:40)
[2021-03-25] MEDS: Loperamide 2 MG CAP PO (19:30)
[2021-03-25] MEDS: Melatonin 3 MG TAB PO (22:49)
[2021-03-26] VITALS (31 sets, daily range): BP systolic 97–127; BP diastolic 39–80; PULSE 49–75; RESP 9–35; TEMP 35.8–36.5; O2SAT 84–96
[2021-03-26 07:13] LABS: Lactate 1.1 mmol/L (0.6-1.4)
[2021-03-26 07:22] LABS: Abs Immature Grans 0.27 10^3/uL (0.0-0.06); Absolute Monocyte Count 0.64 10^3/uL (0.1-0.8); Absolute Neutrophil Count 11.85 10^3/uL (1.2-6.7); Basophils % 0.1; HCT 37.3 % (40.0-50.0); HGB 12.5 g/dL (13.5-17.5); Immature Grans % 1.9; Lymphocytes % 10.1; MCHC 33.5 % (32.0-36.0); MCV 89.4 fL (80-95); MPV 10.6 fL (8.0-11.0); Monocytes % 4.5; Neutrophils % 83.4; Nucleated RBC 0 %; Platelet Count 260 10^3/uL (130-400); RBC 4.17 10^6/uL (4.36-5.78); RDW 12.6 % (11.8-14.1); RDW-SD 41.9 fL; WBC 14.21 10^3/uL (4.4-10.8)
[2021-03-26 07:29] LABS: Absolute Basophil Count 0.01 10^3/uL (0.0-0.2); Absolute Lymphocyte Count 1.44 10^3/uL (1.2-3.4)
[2021-03-26 07:45] LABS: ALT 15 U/L (16-63); AST 19 U/L (15-37); Albumin 1.7 g/dL (3.4-5.0); Alkaline Phosphatase 49 U/L (46-116); Anion Gap 7.8 mmol/L (3-11); BUN 33 mg/dL (7-18); Bilirubin, Direct 0.1 mg/dL (0.0-0.2); Bilirubin, Total 0.3 mg/dL (0.2-1.0); CO2 23.2 mmol/L (21.0-32.0); CREATININE 0.9 mg/dL (0.70-1.30); Calcium 8.2 mg/dL (8.5-10.1); Chloride 110 mmol/L (98-107); Glucose 327 mg/dL (74-106); Magnesium 2.5 mg/dL (1.8-2.4); Potassium 4.3 mmol/L (3.5-5.1); Sodium 141 mmol/L (136-145); Total Protein 5.5 g/dL (6.4-8.2)
[2021-03-26 07:53] LABS: D-Dimer 857 ng/mlFEU (<500)
[2021-03-26] MEDS: guaiFENesin 600 MG TABCR PO ×2 (08:26→22:16)
[2021-03-26] MEDS: Famotidine 20 MG TAB PO ×2 (08:26→22:17)
[2021-03-26] MEDS: Dexamethasone 10 MG/ML VIAL 6 MG IVP (08:26)
[2021-03-26] MEDS: Cholecalciferol (Vitamin D3) 1,000 UNIT TAB 2000 UNITS PO (08:26)
[2021-03-26] MEDS: Ascorbic Acid 500 MG TAB 1000 MG PO ×2 (08:26→22:17)
[2021-03-26] MEDS: Insulin Aspart 300 UNITS/3 ML PEN SC ×7 (08:30→22:19)
[2021-03-26] MEDS: Insulin NPH-Human 300 UNITS/3 ML PEN 20 UNIT SC (08:30)
[2021-03-26 09:38] LABS: Ferritin 1279 ng/mL (26-388)
--- NOTE | 2021-03-26 11:59 | PGE_ITS ---
Date of Service Date of service: 03/26/21 Time of Service: 12:00 Assessment and Plan Assessment and plan (1) COVID-19: Status: Acute Assessment and plan: Hypoxia has improved he is now on nasal cannula 3 L/min. I think he is medically stable to be transferred to the medical/surgical floor for continued treatment of his Covid pneumonia. (2) DKA (diabetic ketoacidosis): Status: Resolved Assessment and plan: DKA is resolved. Patient is now on combination of basal bolus insulin with sliding scale NovoLog on a sensitive scale. Of increases to the insulin resistant scale. I ordered NPH to be given 20 units daily with his Decadron 6 mg. This should help blunt the hyperglycemic response from steroids. He is on Lantus 15 units nightly. I have increased that to 20 units and I have also added additional NovoLog to be given for carbohydrate coverage at a ratio of 1:10. Qualifiers: Diabetes mellitus type: type 2 Diabetes mellitus complication detail: without coma Qualified Code(s): E11.10 - Type 2 diabetes mellitus with ketoacidosis without coma (3) Newly diagnosed diabetes: Status: Acute Assessment and plan: As above. Continue adjustment of insulin as noted above. I explained the patient that he may or may not need to remain on insulin upon discharge. He could potentially go back on his Metformin where he can go on an SGLT2 inhibitor or GLP-1 agonist. (4) DVT prophylaxis: Status: Acute Assessment and plan: lovenox sc (5) Discharge planning issues: Status: Acute Assessment and plan: Full Code Transfer out of ICU to the medical/surgical floor. Plan will be for discharge home once he is no longer requiring oxygen. Subjective Subjective Interval history since last seen: Overall the patient feels improved. He does not feel short of breath and denies any chest pain nausea or vomiting. Patient is tolerating a diet. He remains out of DKA blood sugars are running high secondary to his underlying poorly controlled diabetes mellitus along with concomitant treatment with Decadron for his COVID-19 pneumonia. Patient remains on baricitinib along with remdesivir. Oxygen saturation is running 94% on 3 L/min per nasal cannula but with activity he will desaturate down into the high 80s. Cough is occasionally productive of yellowish mucus but mostly white. He is not running any fever. Rocephin and doxycycline were prescribed for possible concomitant bacterial respiratory infection in addition to treatment for his Covid 19 pneumonia however antibiotics were discontinued per bevel face stoner and polisher recommendation. Patient states that he was vaccinated about 5 months ago with the Pfizer vaccine. Exam Narrative Exam Narrative: Late middle-aged white male sitting up in bed alert and oriented person place and time circumstance. HEENT is unremarkable Lungs with bibasilar fine rales although it is difficult here over my PAPR device along with the negative airflow in the room. Heart regular rate and rhythm Abdomen soft nontender nondistended normal bowel sounds Extremities without peripheral cyanosis or edema. No calf tenderness or swelling. Neuro exam grossly intact. Objective Last Vital Signs Temp 35.8 C L 03/26/21 07:30 Pulse 52 L 03/26/21 08:00 Resp 17 03/26/21 09:00 BP 106/49 L 03/26/21 08:00 Pulse Ox 91 L 03/26/21 09:00 Laboratory Results - last 24 hr 03/24/21 03/25/21 03/26/21 16:00 12:05 06:50 WBC RBC Hgb Hct MCV MCH MCHC RDW Plt Count MPV Immature Gran % Neutrophils % Lymphocytes % Monocytes % Eosinophils % Basophils % Nucleated RBC % Absolute Neutrophils Absolute Lymphocytes Absolute Monocytes Absolute Eosinophils Absolute Basophils D-Dimer VBG Lactate Sodium Cancelled 142 141 Potassium Cancelled 3.8 4.3 Chloride Cancelled 112 H 110 H Carbon Dioxide Cancelled 20.1 L 23.2 Anion Gap Cancelled 9.9 7.8 BUN Cancelled 28 H 33 H Creatinine Cancelled 1.1 0.9 Estimated GFR/1.73 m2 Cancelled >= 60.00 >= 60.00 Glucose Cancelled 250 H D 327 H Calcium Cancelled 7.5 L 8.2 L Magnesium 2.5 H Ferritin 1279 H Total Bilirubin 0.3 Conjugated Bilirubin 0.1 AST 19 ALT 15 L Alkaline Phosphatase 49 C-Reactive Protein 7.20 H Total Protein 5.5 L Albumin 1.7 L 03/26/21 03/26/21 03/26/21 06:50 06:50 06:50 WBC 14.21 H D RBC 4.17 L Hgb 12.5 L Hct 37.3 L MCV 89.4 MCH 30.0 MCHC 33.5 RDW 12.6 Plt Count 260 MPV 10.6 Immature Gran % 1.9 Neutrophils % 83.4 Lymphocytes % 10.1 Monocytes % 4.5 Eosinophils % 0.0 Basophils % 0.1 Nucleated RBC % 0 Absolute Neutrophils 11.85 H Absolute Lymphocytes 1.44 Absolute Monocytes 0.64 Absolute Eosinophils 0.00 Absolute Basophils 0.01 D-Dimer 857 H VBG Lactate 1.1 Sodium Potassium Chloride Carbon Dioxide Anion Gap BUN Creatinine Estimated GFR/1.73 m2 Glucose Calcium Magnesium Ferritin Total Bilirubin Conjugated Bilirubin AST ALT Alkaline Phosphatase C-Reactive Protein Total Protein Albumin
[2021-03-26] MEDS: Normal Saline Flush 10 ML SYR IVP (16:31)
[2021-03-26] MEDS: Enoxaparin 40 MG/0.4 ML SYR SC (16:31)
[2021-03-26 21:47] LABS: Procalcitonin 0.2 ng/mL
[2021-03-26] MEDS: Melatonin 3 MG TAB PO (22:17)
[2021-03-26] MEDS: Insulin Glargine 300 UNITS/3 ML PEN 20 UNITS SC (22:23)
[2021-03-27] VITALS (32 sets, daily range): BP systolic 97–118; BP diastolic 51–62; PULSE 48–76; RESP 14–28; TEMP 34–37; O2SAT 85–98
--- NOTE | 2021-03-27 00:56 | NUR.NOTE ---
Nursing Note: Pt's calls from their home in [place]. She is worried that her expects to dc home soon tomorrow and she is worried that he will try to drive home (alone) to [place] before he is strong enough. SHe would not be in [place] to help him drive home to [place]. We discussed the uncertainty of covid recovery timelines and that some pt's have gone home on supplemental O2. explains that pt is building a house in [place] and that it isn't done. 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 She states that he could stay with his sister Who is Mary Jane, one of the hospital chaplains. is very anxious about her husbands illness and hasn't been able to see him as she is in [place] still. Pt and RN discussed these potentials and he also states he could go live with his sister at discharge until he is better.
[2021-03-27 08:04] LABS: HCT 37.4 % (40.0-50.0); HGB 13.1 g/dL (13.5-17.5); MCV 88.4 fL (80-95); RBC 4.23 10^6/uL (4.36-5.78); WBC 11.75 10^3/uL (4.4-10.8)
[2021-03-27 08:05] LABS: Abs Immature Grans 0.07 10^3/uL (0.0-0.06); MPV 10.5 fL (8.0-11.0); Nucleated RBC 0 %; Platelet Count 288 10^3/uL (130-400); RDW 12.6 % (11.8-14.1); RDW-SD 41.4 fL
[2021-03-27 08:31] LABS: ALT 16 U/L (16-63); AST 19 U/L (15-37); Absolute Lymphocyte Count 1.76 10^3/uL (1.2-3.4); Absolute Monocyte Count 0.71 10^3/uL (0.1-0.8); Absolute Neutrophil Count 9.28 10^3/uL (1.2-6.7); Albumin 1.8 g/dL (3.4-5.0); Alkaline Phosphatase 52 U/L (46-116); Atypical Lymphocytes % 3; BUN 31 mg/dL (7-18); Bilirubin, Total 0.3 mg/dL (0.2-1.0); C-Reactive Protein 4.22 mg/dL (0.0-0.3); CREATININE 0.8 mg/dL (0.70-1.30); Calcium 8.6 mg/dL (8.5-10.1); Chloride 114 mmol/L (98-107); Creatine Kinase 21 U/L (39-308); Glucose 65 mg/dL (74-106); Potassium 3.7 mmol/L (3.5-5.1); Sodium 147 mmol/L (136-145); Total Protein 5.7 g/dL (6.4-8.2)
[2021-03-27 08:32] LABS: Diff Comment Manual Differential; RBC Morphology Normal
[2021-03-27] MEDS: guaiFENesin 600 MG TABCR PO ×2 (08:41→19:46)
[2021-03-27] MEDS: Ascorbic Acid 500 MG TAB 1000 MG PO ×2 (08:41→19:47)
[2021-03-27] MEDS: Cholecalciferol (Vitamin D3) 1,000 UNIT TAB 2000 UNITS PO (08:41)
[2021-03-27] MEDS: Famotidine 20 MG TAB PO ×2 (08:42→19:46)
[2021-03-27] MEDS: Dexamethasone 10 MG/ML VIAL 6 MG IVP (08:42)
[2021-03-27] MEDS: Normal Saline Flush 10 ML SYR IVP (08:46)
[2021-03-27] MEDS: Insulin Aspart 300 UNITS/3 ML PEN SC ×6 (09:42→21:58)
[2021-03-27] MEDS: Insulin NPH-Human 300 UNITS/3 ML PEN 20 UNIT SC (09:43)
--- NOTE | 2021-03-27 09:54 | PDOC.CMPRO ---
- If Service Date Differs Date of service: 03/27/21 Time of Service: 09:54 Care Management Progress Note Per RNChanel: Pt's calls from their home in [place]. She is worried that her expects to dc home soon tomorrow and she is worried that he will try to drive home (alone) to [place] before he is strong enough. SHe would not be in [place] to help him drive home to [place]. We discussed the uncertainty of covid recovery timelines and that some pt's have gone home on supplemental O2. explains that pt is building a house in [place] and that it isn't done. 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 She states that he could stay with his sister Who is Mary Jane, one of the hospital chaplains.? is very anxious about her husbands illness and hasn't been able to see him as she is in [place] still. Pt and RN discussed these potentials and he also states he could go live with his sister at discharge until he is better.
--- NOTE | 2021-03-27 12:30 | W.PM.PROGNOT ---
Date of Service Date of service: 03/27/21 Time of Service: 12:31 Assessment and Plan Assessment and plan (1) COVID-19: Status: Acute Assessment and plan: Continue Remdesivir, Decadron, baricitinib along with pulmonary toiletry and proning and supplemental oxygen. Patient no longer requires intensive care unit monitoring and has been written to be transferred to the floor. Patient's admission CT scan showed no pulmonary embolism but showed multiple bilateral groundglass opacities consistent with Covid pneumonia. With the declining D-dimer I think his hypoxemia is secondary to his Covid pneumonia and there is no evidence for thromboembolic disease therefore I have kept him on DVT prophylactic Lovenox. (2) Respiratory failure with hypoxia: Status: Acute Assessment and plan: Secondary to Covid pneumonia. With a declining procalcitonin level and no fever and no significant sputum production I do not think that he has a concomitant bacterial pneumonitis. Qualifiers: Chronicity: acute Qualified Code(s): J96.01 - Acute respiratory failure with hypoxia (3) Newly diagnosed diabetes: Status: Acute Assessment and plan: Blood sugars have markedly improved since the addition of NPH as well as adjustment in his Lantus. Morning sugar was actually a little too low at 65 therefore I will cut back his nighttime dose of Lantus. Continue carb coverage and high-dose sliding scale corrective (4) DVT prophylaxis: Status: Acute Assessment and plan: Continue Lovenox 40 mg subcutaneously daily Subjective Subjective Interval history since last seen: Patient feels good and denies any dyspnea or chest discomfort however he still having significant oxygen desaturation with activity. SPO2 drops down to 85% even while on 4 L/min per nasal cannula with any activity. At rest his oxygen saturations running in the low 90s. Last night he was actually on room air for a while and while proning was remaining above 90% saturation. He has a minimally productive cough and no fever. His white cell count is down to 11,000. His other inflammatory markers continue to improve with CRP is down to 4.22 from a high of 17.6. Procalcitonin yesterday was 0.2 down from his admission level of 0.4 his D-dimer is down to 857 yesterday from a value of 1189 the day before. Apparently it was never checked on admission he remains on Remdesivir and Decadron and baricitinib DVT prophylactic level of enoxaparin 40 mg daily. Exam Narrative Exam Narrative: White male sitting up in his bed talking on his cell phone and eating his lunch. He is alert and oriented person place time circumstance. He has a mild nonproductive cough. Lungs with bibasilar rales no rhonchi or wheezing Heart regular rate and rhythm without murmur rub Abdomen soft nontender nondistended normal bowel sounds Lower extremities without peripheral cyanosis or edema no calf tenderness or swelling Objective Last Vital Signs Temp 36.5 C 03/26/21 19:40 Pulse 66 03/27/21 09:13 Resp 21 03/27/21 09:00 BP 113/51 L 03/27/21 08:01 Pulse Ox 87 L 03/27/21 09:00 Laboratory Results - last 24 hr 03/26/21 03/27/21 03/27/21 20:50 01:49 07:20 WBC RBC Hgb Hct MCV MCH MCHC RDW Plt Count MPV Immature Gran % Neutrophils % Lymphocytes % Atypical Lymphs % Monocytes % Eosinophils % Basophils % Nucleated RBC % Absolute Neutrophils Absolute Lymphocytes Absolute Monocytes Absolute Eosinophils Absolute Basophils RBC Morphology Sodium Cancelled 147 H Potassium Cancelled 3.7 Chloride Cancelled 114 H Carbon Dioxide Cancelled 26.0 Anion Gap Cancelled 7.0 BUN Cancelled 31 H Creatinine Cancelled 0.8 Estimated GFR/1.73 m2 Cancelled >= 60.00 Glucose Cancelled 65 L D Calcium Cancelled 8.6 Total Bilirubin 0.3 AST 19 ALT 16 Alkaline Phosphatase 52 Creatine Kinase 21 L C-Reactive Protein 4.22 H Total Protein 5.7 L Albumin 1.8 L Procalcitonin 0.2 Hepatitis C Antibody 03/27/21 03/27/21 07:20 07:20 WBC 11.75 H RBC 4.23 L Hgb 13.1 L Hct 37.4 L MCV 88.4 MCH 31.0 MCHC 35.0 RDW 12.6 Plt Count 288 MPV 10.5 Immature Gran % See Differential Neutrophils % 79.0 Lymphocytes % 12.0 Atypical Lymphs % 3 Monocytes % 6.0 Eosinophils % 0.0 Basophils % 0.0 Nucleated RBC % 0 Absolute Neutrophils 9.28 H Absolute Lymphocytes 1.76 Absolute Monocytes 0.71 Absolute Eosinophils 0.00 Absolute Basophils 0.00 RBC Morphology Normal Sodium Potassium Chloride Carbon Dioxide Anion Gap BUN Creatinine Estimated GFR/1.73 m2 Glucose Calcium Total Bilirubin AST ALT Alkaline Phosphatase Creatine Kinase C-Reactive Protein Total Protein Albumin Procalcitonin Hepatitis C Antibody Cancelled
[2021-03-27] MEDS: Enoxaparin 40 MG/0.4 ML SYR SC (16:45)
[2021-03-27] MEDS: Docusate Sodium 100 MG CAP PO (19:46)
[2021-03-27] MEDS: Ipratropium/Albuterol 4 GM 120 PUFF INH IH (19:46)
[2021-03-27] MEDS: Normal Saline 500 ML 30 ML IV (19:47)
--- NOTE | 2021-03-27 20:27 | NUR.NOTE ---
Pt is administering his own insulin from pens. Needs assist/double check for dialing the pen as he struggles to see the #'s due to overhead lighting glare (even with his glasses on). Pt is helping to count carbs/reading packages nutritional info and helping to calculate an appropriate carb dose of insulin correctly. Nursing Note:
[2021-03-27] MEDS: DOXYCYCLINE 100 MG in Normal Saline 100 ML IVPB (21:53)
[2021-03-27] MEDS: Insulin Glargine 300 UNITS/3 ML PEN 15 UNITS SC (22:00)
[2021-03-28] VITALS (23 sets, daily range): BP systolic 108–136; BP diastolic 43–64; PULSE 43–79; RESP 13–28; TEMP 31–37; O2SAT 90–98
[2021-03-28 06:13] LABS: Vitamin D 25 Total 38.2 ng/mL (30-100)
[2021-03-28 06:57] LABS: Abs Immature Grans 0.05 10^3/uL (0.0-0.06); HCT 34.9 % (40.0-50.0); HGB 11.8 g/dL (13.5-17.5); MCH 29.8 pg (27.0-33.0); MCHC 33.8 % (32.0-36.0); MCV 88.1 fL (80-95); MPV 10.5 fL (8.0-11.0); Nucleated RBC 0 %; Platelet Count 267 10^3/uL (130-400); RBC 3.96 10^6/uL (4.36-5.78); RDW 12.3 % (11.8-14.1); RDW-SD 40.2 fL; WBC 7.63 10^3/uL (4.4-10.8)
[2021-03-28 07:16] LABS: ALT 18 U/L (16-63); AST 25 U/L (15-37); Albumin 1.7 g/dL (3.4-5.0); Alkaline Phosphatase 46 U/L (46-116); Anion Gap 6.4 mmol/L (3-11); BUN 23 mg/dL (7-18); Bilirubin, Total 0.3 mg/dL (0.2-1.0); C-Reactive Protein 2.24 mg/dL (0.0-0.3); CO2 26.6 mmol/L (21.0-32.0); CREATININE 0.8 mg/dL (0.70-1.30); Calcium 7.8 mg/dL (8.5-10.1); Chloride 112 mmol/L (98-107); Creatine Kinase 18 U/L (39-308); Glucose 83 mg/dL (74-106); Potassium 3.5 mmol/L (3.5-5.1); Sodium 145 mmol/L (136-145)
[2021-03-28 07:20] LABS: Absolute Lymphocyte Count 2.21 10^3/uL (1.2-3.4); Absolute Monocyte Count 0.15 10^3/uL (0.1-0.8); Absolute Neutrophil Count 5.26 10^3/uL (1.2-6.7); Atypical Lymphocytes % 8; Bands % 0; Diff Comment Manual Differential
[2021-03-28 07:21] LABS: RBC Morphology Normal
[2021-03-28] MEDS: Ipratropium/Albuterol 4 GM 120 PUFF INH IH ×4 (07:55→20:00)
[2021-03-28] MEDS: DOXYCYCLINE 100 MG in Normal Saline 100 ML IVPB ×2 (08:20→19:59)
[2021-03-28] MEDS: Normal Saline Flush 10 ML SYR IVP (08:20)
[2021-03-28] MEDS: Cholecalciferol (Vitamin D3) 1,000 UNIT TAB 2000 UNITS PO (08:20)
[2021-03-28] MEDS: Famotidine 20 MG TAB PO ×2 (08:21→19:58)
[2021-03-28] MEDS: guaiFENesin 600 MG TABCR PO ×2 (08:21→19:59)
[2021-03-28] MEDS: Ascorbic Acid 500 MG TAB 1000 MG PO ×2 (08:21→19:59)
[2021-03-28] MEDS: Potassium Chloride 20 MEQ TABCR PO ×3 (08:21→19:59)
[2021-03-28] MEDS: Dexamethasone 10 MG/ML VIAL 6 MG IVP (08:22)
[2021-03-28] MEDS: Insulin Glargine 300 UNITS/3 ML PEN 15 UNITS SC (08:55)
--- NOTE | 2021-03-28 09:14 | PDOC.CMPRO ---
- If Service Date Differs Date of service: 03/28/21 Time of Service: 09:14 Care Management Progress Note S/O: CM spoke with Lazaro over the phone due to his covid precautions. He reports that he is feeling better today and denies sob. He sounds good over the phone. He has a phone at his bed side and is able to communicate with his family as needed. CM spoke to his sister Melissa today and answered her questions. If needed, Melissa is willing to have Lazaro stay with her after discharge until he is feeling better and able to travel back to his home in [place]. Lazaro agrees with this plan. A: 65 year old male admitted to [facility] on 03/24/21 for COVID-19, pneumonia w/ hypoxia, DKA P: Anticipate Lazaro will be discharged to his sister Melissa's home in [place] with no new services, when medically cleared by . He lives in [place]. Undetermined if patient will need home 02 at this time. He will follow up with his PCP and plan of care as prescribed. He will transport via private vehicle with family.
[2021-03-28 10:57] LABS: HBs Antibody, Qual Negative (See Note); HBs Antibody, Quant <3.1 mIU/mL (See Note); Hepatitis B Core Antibody Negative (Negative); Hepatitis B surface Ag Negative (Negative); Hepatitis C Ab w Rflx HCV PCR Negative (Negative)
[2021-03-28 11:15] LABS: HIV-1/2 Ag & Ab Screen Negative (Negative)
[2021-03-28] MEDS: Insulin Aspart 300 UNITS/3 ML PEN SC ×4 (12:46→22:58)
[2021-03-28] MEDS: Psyllium PKT 1 EACH PO ×2 (13:28→19:59)
--- NOTE | 2021-03-28 15:39 | PGE_ITS ---
Date of Service Date of service: 03/28/21 Time of Service: 15:39 Assessment and Plan Assessment and plan (1) COVID-19: Status: Acute Assessment and plan: finish Remdesivir today; cont. decadron, Rocephin, doxycycline, baricitinib, low dose enoxaparin (CRP and dimer continue to decline and WBC is improving; CK has normalized). (2) Respiratory failure with hypoxia: Status: Acute Assessment and plan: Secondary to Covid pneumonia. I stopped his antibiotics on the weekend thinking that his declining WBC and procalcitonin suggested no bacterial component but with worsening hypoxemia and now productive sputum, I restarted his doxycycline and Rocephin yesterday. I think that he ought to finish a course of antibiotics for probable concommitant CAP in additon to Covid-19 pneunonia. He had a CTA on admission that did not demonstrate any PE, however if he deteriorates or his dimer rises then I would consider re- evaluation for PE. Qualifiers: Chronicity: acute Qualified Code(s): J96.01 - Acute respiratory failure with hypoxia (3) Newly diagnosed diabetes: Status: Acute Assessment and plan: Blood glucose was only 68 this morning. Unfortunately nursing decided to not give him an CHO coverage w/ his novolog and witheld his NPH. His glucose has subsequently risen through the day to high 200's to 300. I explained to nursing that fasting glucose reflects the Lantus dose given the night before and holding meal time coverage will only lead to rises throughout the day. I showed them his glucose readings from the day before when he did the same thing. He needs the NPH for coverage of his decadron, he needs the Lantus albeit at reduced dose for his basal insulin for longer period of control and he needs short acting Novolog for coverage of both his CHO intake as well as corrective scale for elevated glucose readings. (4) DVT prophylaxis: Status: Acute Assessment and plan: Continue Lovenox 40 mg subcutaneously daily Subjective Subjective Interval history since last seen: Patient has had increasing oxygen requirements and now is on HFNC at 50 LPM. He does not feel dyspneic and denies any CP. Cough is now productive of sputum. C&S has been ordered and sputum has been sent. He is afebrile and yesterday I put him back on Rocephin and doxycycline. He remains on Baricitinib 4 mg daily, Remdesivir (d#5/5 including the initial dose of 200 mg given on 03/24). He remains on decadron 6 mg daily. He is practicing his proning and using his IS and Acapella. He remains in the ICU although over the weekend I wrote for him to be transferred to the med/surg floor. If he does not worsen today then he can remain a med/surg patient otherwise he will need transfer back to ICU status. He remains a full code. If he worsens then I would trial him on NIPPV w/ CPAP at 12 to 15 cm and adjust his FIO2 to keep above 90%. Exam Narrative Exam Narrative: Elderly white male who does not appear as ill as his numbers suggest. He is not tachypneic and he is not using his accessory respiratory muscles Lungs: bibasilar fine rales; no rhonchi or wheezing Heart: RRR Abdoemen: soft, nontender, normal bowel sounds; no guarding Legs: no edema or calf pain Objective Last Vital Signs Temp 36.2 C L 03/28/21 12:52 Pulse 68 03/28/21 12:33 Resp 20 03/28/21 12:33 BP 111/64 03/28/21 12:33 Pulse Ox 94 03/28/21 12:33 Laboratory Results - last 24 hr 03/25/21 03/27/21 03/27/21 06:40 07:20 07:20 WBC RBC Hgb Hct MCV MCH MCHC RDW Plt Count MPV Immature Gran % Neutrophils % Band Neutrophils % Lymphocytes % Atypical Lymphs % Monocytes % Eosinophils % Basophils % Nucleated RBC % Absolute Neutrophils Absolute Lymphocytes Absolute Monocytes Absolute Eosinophils Absolute Basophils RBC Morphology Sodium Potassium Chloride Carbon Dioxide Anion Gap BUN Creatinine Estimated GFR/1.73 m2 Glucose Calcium Total Bilirubin AST ALT Alkaline Phosphatase Creatine Kinase C-Reactive Protein Total Protein Albumin 25-OH Vitamin D Total 38.2 Hep Bs Antigen Negative Hep Bs Antibody Negative Hep Bs Antibody, Quant <3.1 Hep B Core Total Ab Negative Hepatitis C Antibody Negative HIV 1&2 Ag/Ab, 4th Gen Negative 03/28/21 03/28/21 06:12 06:12 WBC 7.63 D RBC 3.96 L Hgb 11.8 L Hct 34.9 L MCV 88.1 MCH 29.8 MCHC 33.8 RDW 12.3 Plt Count 267 MPV 10.5 Immature Gran % 0.0 Neutrophils % 69.0 Band Neutrophils % 0 Lymphocytes % 21.0 Atypical Lymphs % 8 Monocytes % 2.0 Eosinophils % 0.0 Basophils % 0.0 Nucleated RBC % 0 Absolute Neutrophils 5.26 Absolute Lymphocytes 2.21 Absolute Monocytes 0.15 Absolute Eosinophils 0.00 Absolute Basophils 0.00 RBC Morphology Normal Sodium 145 Potassium 3.5 Chloride 112 H Carbon Dioxide 26.6 Anion Gap 6.4 BUN 23 H Creatinine 0.8 Estimated GFR/1.73 m2 >= 60.00 Glucose 83 Calcium 7.8 L Total Bilirubin 0.3 AST 25 ALT 18 Alkaline Phosphatase 46 Creatine Kinase 18 L C-Reactive Protein 2.24 H Total Protein 5.0 L Albumin 1.7 L 25-OH Vitamin D Total Hep Bs Antigen Hep Bs Antibody Hep Bs Antibody, Quant Hep B Core Total Ab Hepatitis C Antibody HIV 1&2 Ag/Ab, 4th Gen Reviewed Pertinent PMH: Yes
[2021-03-28] MEDS: Enoxaparin 40 MG/0.4 ML SYR SC (17:27)
[2021-03-28] MEDS: cefTRIAXone 2 GM/50 ML BAG IVPB (18:00)
[2021-03-28 19:52] LABS: Legionella Ag Detection Urine Negative (Negative)
[2021-03-28] MEDS: Insulin Glargine 300 UNITS/3 ML PEN 8 UNITS SC (23:37)
[2021-03-29] VITALS (17 sets, daily range): BP systolic 98–138; BP diastolic 50–82; PULSE 58–76; RESP 16–18; TEMP 31–37.2; O2SAT 92–95
--- NOTE | 2021-03-29 00:52 | NUR.NOTE ---
Nursing Note: Patient transferred from ICU Room 219 to MS 216 at 2330 via wheelchair. Patient was on 8 liters 02 via nasal cannula during transfer. Patient was brought into new room, put back on hi-flow 02 @ 50%/50lpm. Patient has a #18g and #20g in his right arm, IID at this time. See shift assessment intervention for full assessment. Will continue to monitor. Patient also has telemetry in place at the time of transfer. Per ICU nursing staff, needs to be on it for continuous oxygen monitoring. RAQUEL Jason spoke with Dr. Chicas who advised no need for cardiac monitoring at this point. RAQUEL also spoke with ICU nurse Chanel who advised he needs to be on it for the continuous 02 monitoring. CCRN to follow up on this in the morning.
[2021-03-29 02:04] LABS: C Diff PCR Negative (Negative)
[2021-03-29 07:33] LABS: Abs Immature Grans 0.18 10^3/uL (0.0-0.06); Absolute Eosinophil Count 0.01 10^3/uL (0.0-0.7); Absolute Lymphocyte Count 1.78 10^3/uL (1.2-3.4); Absolute Monocyte Count 0.47 10^3/uL (0.1-0.8); Eosinophils % 0.1; HCT 35.7 % (40.0-50.0); HGB 12.3 g/dL (13.5-17.5); Immature Grans % 2.2; Lymphocytes % 21.6; MCH 30.4 pg (27.0-33.0); MCHC 34.5 % (32.0-36.0); MCV 88.4 fL (80-95); MPV 11.6 fL (8.0-11.0); Monocytes % 5.7; Neutrophils % 70.4; Nucleated RBC 0 %; Platelet Count 153 10^3/uL (130-400); RBC 4.04 10^6/uL (4.36-5.78); RDW 12.3 % (11.8-14.1); RDW-SD 40.3 fL; WBC 8.24 10^3/uL (4.4-10.8)
[2021-03-29 07:54] LABS: ALT 18 U/L (16-63); AST 15 U/L (15-37); Albumin 1.7 g/dL (3.4-5.0); Alkaline Phosphatase 52 U/L (46-116); Anion Gap 6.4 mmol/L (3-11); BUN 20 mg/dL (7-18); Bilirubin, Total 0.4 mg/dL (0.2-1.0); CO2 26.6 mmol/L (21.0-32.0); CREATININE 0.8 mg/dL (0.70-1.30); Calcium 7.9 mg/dL (8.5-10.1); Chloride 109 mmol/L (98-107); Glucose 54 mg/dL (74-106); Potassium 3.9 mmol/L (3.5-5.1); Sodium 142 mmol/L (136-145); Total Protein 5.3 g/dL (6.4-8.2)
[2021-03-29 08:04] LABS: D-Dimer 870 ng/mlFEU (<500)
[2021-03-29 08:32] LABS: Procalcitonin < 0.1 ng/mL
[2021-03-29] MEDS: Ascorbic Acid 500 MG TAB 1000 MG PO ×2 (08:41→22:05)
[2021-03-29] MEDS: Dexamethasone 10 MG/ML VIAL 6 MG IVP (08:42)
[2021-03-29] MEDS: Cholecalciferol (Vitamin D3) 1,000 UNIT TAB 2000 UNITS PO (08:42)
[2021-03-29] MEDS: DOXYCYCLINE 100 MG in Normal Saline 100 ML IVPB ×2 (08:42→22:08)
[2021-03-29] MEDS: Famotidine 20 MG TAB PO ×2 (08:43→22:05)
[2021-03-29] MEDS: guaiFENesin 600 MG TABCR PO ×2 (08:44→22:05)
[2021-03-29] MEDS: Ipratropium/Albuterol 4 GM 120 PUFF INH IH ×3 (08:44→22:24)
[2021-03-29] MEDS: Potassium Chloride 20 MEQ TABCR PO (08:45)
[2021-03-29] MEDS: Protein Nutritional Supplement 16 GM 1 OUNCE PACKET PO ×3 (08:45→22:06)
[2021-03-29] MEDS: Psyllium PKT 1 EACH PO (08:45)
--- NOTE | 2021-03-29 08:45 | PDOC.CMPRO ---
- If Service Date Differs Date of service: 03/29/21 Time of Service: 08:45 Care Management Progress Note S/O: MINGO spoke with Lazaro over the phone due to his covid precautions. He reports that he's feeling fine today and is almost back to his baseline. Lazaro has a phone at his bedside and is able to communicate with his family and planning on updating his and sister today. Lazaro reported that he has no needs at this time. A: 65 year old male admitted to [facility] on 03/24/21 for COVID-19, pneumonia w/ hypoxia, DKA P: Anticipate Lazaro will be discharged to his sister Melissa's home in [place] with no new services, when medically cleared by . He lives in [place]. Undetermined if patient will need home 02 at this time. He will follow up with his PCP and plan of care as prescribed and transport via private vehicle with family.
[2021-03-29] MEDS: Insulin NPH-Human 300 UNITS/3 ML PEN 15 UNIT SC (09:19)
[2021-03-29] MEDS: Insulin Aspart 300 UNITS/3 ML PEN SC ×5 (12:09→22:09)
--- NOTE | 2021-03-29 14:56 | CHAPLAIN ---
Lazaro was brought to the ED on Sunday (03/25) with COVID symptoms and tested positive. He is visiting here while working on a house he is building. His sister, Mary Jane Mir, is a retired [employer]. While in the ED, Lazaro gave me permission, through nurse DAVE Elias, to let Melissa know how he is doing, so I called Melissa. Lazaro's lives out of state and is keeping in touch with her by phone. Mary Jane has offered to have Lazaro stay with her while recovering. Lazaro was first in the ICU, but was moved out to [facility].
[2021-03-29 15:19] LABS: Streptococcus Pneumoniae Ag, U Negative (Negative)
--- NOTE | 2021-03-29 15:30 | W.INDIABCONS ---
Date of service: 03/29/21 Time of Service: 15:31 Diabetes Inpatient Consult DESCRIPTION/ASSESSMENT: 65yo DKA with resp. failure. A1C on 03/25 was 14.0. Current BMI WNL (24.8 kg/m2) although a weight change of ~8% noted since 03/24. Pt has had inconsistent FPG with ranges from >300 to <60. Insulin adjusted today to reflect 1 unit Novolog/10g CHO, Lantus decreased to 5units daily and 15units Humulin. Proheal liquid 1oz TID ordered and providing 45g protein daily. Good po intake over several days, however not much ordered on trays ? no veggies. Nutrition needs estimated at 2209kcals (REE X1.3 PAL X 1.2 IF), 56-70g protein (.8-1g/kg) and 2209mL fluid per day (1mL/kg). Diagnosis: Inadequate energy intake r/t increase energy needs and decreased appetite as AEB current respiratory illness and decrease in weight by ~8% over the last week. Nutrition knowledge deficit r/t newly dx DM AEB declination of diabetes education upon admission. Inadequate nutrient intake r/t low produce intake AEB declining most produce on his meal trays. Intervention: Continue protein supplement TID to provide 64-80% of protein requirement until adequate po intake is established. Will monitor pt for downgrade out of COVID precautions to approach for diabetes education and work to set up with CGM and outpatient diabetes education appointment prior to d/c. Will monitor for further weight changes and review tray orders to monitor nutrition intake. Time Spent in Nutritional Counseling and Treatment: 20
[2021-03-29] MEDS: Normal Saline Flush 10 ML SYR IVP (15:48)
[2021-03-29] MEDS: cefTRIAXone 2 GM/50 ML BAG IVPB (18:00)
[2021-03-29] MEDS: Enoxaparin 40 MG/0.4 ML SYR SC (18:01)
--- NOTE | 2021-03-29 18:41 | W.PM.PROGNOT ---
Date of Service Date of service: 03/29/21 Time of Service: 18:42 Assessment and Plan Assessment and plan (1) COVID-19: Status: Acute Assessment and plan: Slightly improved., Continue remdesivir, dexamethasone, baricitinib. Continue antibiotics. Encourage proning, IS, acapella. Provide vitamin supplementaion. Wean O2 as tolerated. (2) Hypoxia: Status: Acute Assessment and plan: As above (3) DKA (diabetic ketoacidosis): Status: Resolved Assessment and plan: A1C >14.00. Decrease basal insulin due to hypoglycemia this morning. Qualifiers: Diabetes mellitus type: type 2 Diabetes mellitus complication detail: without coma Qualified Code(s): E11.10 - Type 2 diabetes mellitus with ketoacidosis without coma (4) Newly diagnosed diabetes: Status: Acute Assessment and plan: As above (5) DVT prophylaxis: Status: Acute Assessment and plan: lovenox sc (6) Discharge planning issues: Status: Acute Assessment and plan: Full Code Continues to require hospitalization. Subjective Subjective Interval history since last seen: Mr Sarah feels better. Denies dizziness, chest pain, shortness of breath, nausea. His cough is now only minimally productive of clear sputum. Exam Narrative Exam Narrative: General: Pleasant middle-aged male, laying on his left side in bed, turns to lay on his abdomen while on humidified heated high flow (40 L, 30% FiO2) HEENT: EOMI, MMM Cardiovascular: RRR, no m/r/g Lungs: CTAB Gastrointestinal: soft, nontender, nondistended Extremities: no edema BLE's, no lesions on B feet, 2+ pedal pulses B Objective Last Vital Signs Temp 37.2 C 03/29/21 14:58 Pulse 73 03/29/21 15:00 Resp 18 03/29/21 14:58 BP 115/65 03/29/21 14:58 Pulse Ox 94 03/29/21 14:58 Laboratory Results - last 24 hr 03/27/21 03/28/21 03/29/21 22:20 22:00 05:35 WBC RBC Hgb Hct MCV MCH MCHC RDW Plt Count MPV Immature Gran % Neutrophils % Lymphocytes % Monocytes % Eosinophils % Basophils % Nucleated RBC % Absolute Neutrophils Absolute Lymphocytes Absolute Monocytes Absolute Eosinophils Absolute Basophils D-Dimer Sodium Potassium Chloride Carbon Dioxide Anion Gap BUN Creatinine Estimated GFR/1.73 m2 Glucose Calcium Total Bilirubin AST ALT Alkaline Phosphatase Creatine Kinase Cancelled C-Reactive Protein Total Protein Albumin Procalcitonin Stl C.difficile Tox PCR Negative Urine Legionella Ag Negative 03/29/21 03/29/21 03/29/21 07:02 07:02 07:02 WBC 8.24 RBC 4.04 L Hgb 12.3 L Hct 35.7 L MCV 88.4 MCH 30.4 MCHC 34.5 RDW 12.3 Plt Count 153 D MPV 11.6 H Immature Gran % 2.2 Neutrophils % 70.4 Lymphocytes % 21.6 Monocytes % 5.7 Eosinophils % 0.1 Basophils % 0.0 Nucleated RBC % 0 Absolute Neutrophils 5.80 Absolute Lymphocytes 1.78 Absolute Monocytes 0.47 Absolute Eosinophils 0.01 Absolute Basophils 0.00 D-Dimer Sodium 142 Potassium 3.9 Chloride 109 H Carbon Dioxide 26.6 Anion Gap 6.4 BUN 20 H Creatinine 0.8 Estimated GFR/1.73 m2 >= 60.00 Glucose 54 L Calcium 7.9 L Total Bilirubin 0.4 AST 15 ALT 18 Alkaline Phosphatase 52 Creatine Kinase C-Reactive Protein 2.60 H Total Protein 5.3 L Albumin 1.7 L Procalcitonin < 0.1 Stl C.difficile Tox PCR Urine Legionella Ag 03/29/21 07:02 WBC RBC Hgb Hct MCV MCH MCHC RDW Plt Count MPV Immature Gran % Neutrophils % Lymphocytes % Monocytes % Eosinophils % Basophils % Nucleated RBC % Absolute Neutrophils Absolute Lymphocytes Absolute Monocytes Absolute Eosinophils Absolute Basophils D-Dimer 870 H Sodium Potassium Chloride Carbon Dioxide Anion Gap BUN Creatinine Estimated GFR/1.73 m2 Glucose Calcium Total Bilirubin AST ALT Alkaline Phosphatase Creatine Kinase C-Reactive Protein Total Protein Albumin Procalcitonin Stl C.difficile Tox PCR Urine Legionella Ag
[2021-03-29 21:18] LABS: Glucose 242 mg/dL (74-106)
[2021-03-29] MEDS: Melatonin 3 MG TAB PO (22:05)
[2021-03-29] MEDS: Insulin Glargine 300 UNITS/3 ML PEN SC (22:09)
[2021-03-29 23:24] LABS: Mycoplasma Pneumoniae PCR Negative; Specimen source SPUTUM
[2021-03-30] VITALS (11 sets, daily range): BP systolic 114–141; BP diastolic 60–68; PULSE 63–88; RESP 16–18; TEMP 31–37.1; O2SAT 93–98
--- NOTE | 2021-03-30 | DI.RAD_ITS ---
Exam(s) XR CHEST 2V PA LATERAL EXAM: XR CHEST 2V PA LATERAL CLINICAL HISTORY: worsening hypoxia. TECHNIQUE: 2D digital imaging was performed. COMPARISON: CT CT CHEST PE CTA from 03/24/[address] CHEST PE CTA from 03/24/2021 FINDINGS: Chest leads in place. Heart size normal. The mediastinum is not widened Small nodular density in the left lower lobe region is possibly breast nipple The infiltrate seen on the recent CT scan are difficult to appreciate on the chest x-ray. No pleural effusions IMPRESSION: No confluent infiltrates nor pleural effusions. 9 millimeter left lung base nodule noted. This may be the breast nipple. Recommend repeat CT scan for more accurate comparison to the CT scan performed 03/24/2021. DATA REPOSITORY: RADIATION DOSE DELIVERED:
[2021-03-30] MEDS: Famotidine 20 MG TAB PO ×2 (08:50→21:52)
[2021-03-30] MEDS: Ascorbic Acid 500 MG TAB 1000 MG PO ×2 (08:50→21:52)
[2021-03-30] MEDS: Potassium Chloride 20 MEQ TABCR PO (08:50)
[2021-03-30] MEDS: guaiFENesin 600 MG TABCR PO ×2 (08:50→21:51)
[2021-03-30] MEDS: Cholecalciferol (Vitamin D3) 1,000 UNIT TAB 2000 UNITS PO (08:50)
[2021-03-30] MEDS: Insulin Aspart 300 UNITS/3 ML PEN SC ×7 (08:52→21:53)
[2021-03-30] MEDS: Psyllium PKT 1 EACH PO (08:53)
[2021-03-30] MEDS: Protein Nutritional Supplement 16 GM 1 OUNCE PACKET PO ×3 (08:53→21:52)
[2021-03-30] MEDS: DOXYCYCLINE 100 MG in Normal Saline 100 ML IVPB ×2 (08:53→22:04)
[2021-03-30] MEDS: Dexamethasone 10 MG/ML VIAL 6 MG IVP (08:54)
[2021-03-30 08:55] LABS: Abs Immature Grans 0.09 10^3/uL (0.0-0.06); Absolute Basophil Count 0.01 10^3/uL (0.0-0.2); Absolute Eosinophil Count 0.08 10^3/uL (0.0-0.7); Absolute Lymphocyte Count 1.78 10^3/uL (1.2-3.4); Absolute Monocyte Count 0.69 10^3/uL (0.1-0.8); Absolute Neutrophil Count 5.94 10^3/uL (1.2-6.7); Basophils % 0.1; Eosinophils % 0.9; HCT 35.7 % (40.0-50.0); HGB 12.1 g/dL (13.5-17.5); Lymphocytes % 20.7; MCH 29.7 pg (27.0-33.0); MCHC 33.9 % (32.0-36.0); MCV 87.5 fL (80-95); MPV 10.7 fL (8.0-11.0); Neutrophils % 69.3; Nucleated RBC 0 %; Platelet Count 318 10^3/uL (130-400); RBC 4.08 10^6/uL (4.36-5.78); RDW 12.5 % (11.8-14.1); RDW-SD 39.9 fL; WBC 8.59 10^3/uL (4.4-10.8)
[2021-03-30 09:26] LABS: D-Dimer 864 ng/mlFEU (<500)
--- NOTE | 2021-03-30 09:33 | CMPROGNOTE_ITS ---
- If Service Date Differs Date of service: 03/30/21 Time of Service: 09:33 Care Management Progress Note S/O: CM tried to contact patient via phone, patient did not answer. Per provider, patient states he is not feeling well today at all. He states he feels worse today than two days ago. Also, he reported that his left hand is not working right and a head CT w/o contrast was obtained. CM spoke with patient's sister Melissa and his . Lazaro's daughter Araceli who is a nurse in [place] requested to speak his provided and CM notified Dr. Michaels. A: 65 year old male admitted to [facility] on 03/24/21 for COVID-19, pneumonia w/ hypoxia, DKA P: Anticipate Lazaro will be discharged to his sister Melissa's home in [place] with no new services, when medically cleared by . He lives in [place]. Undetermined if patient will need home 02 at this time. He will follow up with his PCP and plan of care as prescribed and transport via private vehicle with family.
[2021-03-30] MEDS: Ipratropium/Albuterol 4 GM 120 PUFF INH IH ×4 (09:34→22:11)
[2021-03-30] MEDS: Insulin NPH-Human 300 UNITS/3 ML PEN 15 UNIT SC (10:36)
[2021-03-30 10:45] LABS: ALT 22 U/L (16-63); AST 16 U/L (15-37); Albumin 1.7 g/dL (3.4-5.0); Alkaline Phosphatase 49 U/L (46-116); Anion Gap 5.4 mmol/L (3-11); BUN 20 mg/dL (7-18); Bilirubin, Direct 0.1 mg/dL (0.0-0.2); Bilirubin, Total 0.4 mg/dL (0.2-1.0); C-Reactive Protein 6.44 mg/dL (0.0-0.3); CO2 28.6 mmol/L (21.0-32.0); CREATININE 0.8 mg/dL (0.70-1.30); Chloride 106 mmol/L (98-107); Glucose 114 mg/dL (74-106); Magnesium 1.7 mg/dL (1.8-2.4); Potassium 4.1 mmol/L (3.5-5.1); Sodium 140 mmol/L (136-145); Total Protein 5.2 g/dL (6.4-8.2)
[2021-03-30 11:54] LABS: Ferritin 702 ng/mL (26-388)
--- NOTE | 2021-03-30 13:33 | DI.CT_ITS ---
Exam(s) CT HEAD WO EXAM: CT HEAD WO CLINICAL HISTORY: encephalopathy, LUE clumsiness, COVID-19. TECHNIQUE: Imaging Protocol: Axial computed tomography images with coronal and sagittal reformatted images were created and reviewed COMPARISON: No exams were available for comparison FINDINGS: There are no skull fractures nor fluid in the visualized paranasal sinuses. There is no evidence of intracranial hemorrhage, mass effect, or shift of midline structures. There are no extra-axial fluid collections. The ventricles are not enlarged or shifted and there is no blo od within the ventricular system nor within the basal cisterns. IMPRESSION: No acute intracranial findings on this noninfused CT scan of the brain. RADIATION DOSE DELIVERED: 820.63mGy.cm Total DLP DATA REPOSITORY: All CT scans at this facility are submitted to the National Radiology Data Registry (NRDR) Dose Index Registry (DIR) with the [place] [employer] (ACR). RADIATION OPTIMIZATION: All CT scans at this facility use at least one of these dose optimization te chniques: automated exposure control; mA and/or kV adjustment per patient size (includes targeted exa ms where dose is matched to clinical indication); or iterative reconstruction.
--- NOTE | 2021-03-30 14:22 | PGE_ITS ---
Date of Service Date of service: 03/30/21 Time of Service: 12:40 Assessment and Plan Assessment and plan (1) Neurological deficit present: Status: Acute Assessment and plan: Concern for acute CVA. Consult neurology. Start asa/statin. Check fasting lipid panel. Await further neuroogy recommendations. (2) COVID-19: Status: Acute Assessment and plan: No improvement today and encephalopathy is new. Continue remdesivir, dexamethasone, baricitinib. Continue antibiotics. Encourage proning, IS, acapella. Provide vitamin supplementaion. Wean O2 as tolerated. (3) Encephalopathy acute: Status: Acute Assessment and plan: Due to COVID-19 vs/+/- steroids. MOnitor mental status. Neurology consulted. (4) Respiratory failure with hypoxia: Status: Acute Assessment and plan: Due to COVID-19. As above. Qualifiers: Chronicity: acute Qualified Code(s): J96.01 - Acute respiratory failure with hypoxia (5) DKA (diabetic ketoacidosis): Status: Resolved Assessment and plan: A1C >14.00. Increase basal insulin. Qualifiers: Diabetes mellitus complication detail: without coma Diabetes mellitus type: type 2 Qualified Code(s): E11.10 - Type 2 diabetes mellitus with ketoacidosis without coma (6) Newly diagnosed diabetes: Status: Acute Assessment and plan: As above (7) DVT prophylaxis: Status: Acute Assessment and plan: lovenox sc (8) Discharge planning issues: Status: Acute Assessment and plan: Full Code Continues to require hospitalization. Subjective Subjective Interval history since last seen: Patient states he is not feeling well today at all. He states he feels worse today than two days ago. When asked about specific things that are wrong, he states he feels more confused and that his left hand is not working right. It's just doing what it wants to do. It's moving on it's own. He states he woke up like this this morning. He has had difficulty with making it do what he wants, but has been able to clumsily feed himself today. He is left handed. He spilled his urinal on the floor as well. He describes a sensation of cold spray on both sides of his hand. This morning, he was found sitting in the room on room air with O2 sats in the 70s. He was placed initially on high flow with FiO2 of 75%, then placed on CPAP, and now is back to humidified heated high flow with FiO2 of 55%, 50 L flow. He does not feel short of breath and denies cough. Denies dizziness, headache, chest pain. Exam Narrative Exam Narrative: General: Anxious appearing middle-aged male who is slower to respond to questions today than he was yesterday and looks overall worse. He is sitting up in bed on high flow O2. No tachypnea/dyspnea/cyanosis. Neuro:A&Ox2 (does not know the exact date), slower to respond to questions, CN II - XII intact, sensory intact, 5/5 BLE strength, 5/5 BUE strength, including hand application integration architect. The patient demonstrates the hand gradually moving upwards on its own when he tries to rest it on his chest. Slower finger movement on L hand, uncoor dinated. No other focal deficits. HEENT: EOMI, MMM Cardiovascular: RRR, no m/r/g Lungs: quiet crackles at B bases Gastrointestinal: soft, nontender, nondistended Extremities: no edema BLE's, no lesions on B feet, 2+ pedal pulses B Objective Last Vital Signs Temp 36.9 C 03/29/21 22:24 Pulse 68 03/30/21 10:37 Resp 18 03/29/21 22:24 BP 138/82 03/29/21 22:24 Pulse Ox 95 03/30/21 10:37 Laboratory Results - last 24 hr 03/27/21 03/27/21 03/29/21 20:08 22:20 20:45 WBC RBC Hgb Hct MCV MCH MCHC RDW Plt Count MPV Immature Gran % Neutrophils % Lymphocytes % Monocytes % Eosinophils % Basophils % Nucleated RBC % Absolute Neutrophils Absolute Lymphocytes Absolute Monocytes Absolute Eosinophils Absolute Basophils D-Dimer Sodium Potassium Chloride Carbon Dioxide Anion Gap BUN Creatinine Estimated GFR/1.73 m2 Glucose 242 H D Calcium Magnesium Ferritin Total Bilirubin Conjugated Bilirubin AST ALT Alkaline Phosphatase C-Reactive Protein Total Protein Albumin M. pneumoniae Source SPUTUM M. pneumoniae (PCR) Negative Ur Strep pneumoniae Ag Negative 03/30/21 03/30/21 03/30/21 08:30 08:30 08:30 WBC 8.59 RBC 4.08 L Hgb 12.1 L Hct 35.7 L MCV 87.5 MCH 29.7 MCHC 33.9 RDW 12.5 Plt Count 318 D MPV 10.7 Immature Gran % 1.0 Neutrophils % 69.3 Lymphocytes % 20.7 Monocytes % 8.0 Eosinophils % 0.9 Basophils % 0.1 Nucleated RBC % 0 Absolute Neutrophils 5.94 Absolute Lymphocytes 1.78 Absolute Monocytes 0.69 Absolute Eosinophils 0.08 Absolute Basophils 0.01 D-Dimer 864 H Sodium 140 Potassium 4.1 Chloride 106 Carbon Dioxide 28.6 Anion Gap 5.4 BUN 20 H Creatinine 0.8 Estimated GFR/1.73 m2 >= 60.00 Glucose 114 H D Calcium 8.0 L Magnesium 1.7 L Ferritin 702 H Total Bilirubin 0.4 Conjugated Bilirubin 0.1 AST 16 ALT 22 Alkaline Phosphatase 49 C-Reactive Protein 6.44 H Total Protein 5.2 L Albumin 1.7 L M. pneumoniae Source M. pneumoniae (PCR) Ur Strep pneumoniae Ag Objective Narrative Objective Narrative: CT head w/o contrast: official read pending. Per my read, no obvious abnormalities. CXR: No confluent infiltrates nor pleural effusions. 9 millimeter left lung base nodule noted. This may be the breast nipple. Recommend repeat CT scan for more accurate comparison to the CT scan performed 03/24/2021.
[2021-03-30] MEDS: Aspirin E.C. 325 MG TABEC PO (16:20)
[2021-03-30] MEDS: Enoxaparin 40 MG/0.4 ML SYR SC (17:58)
[2021-03-30] MEDS: Clopidogrel 300 MG TAB PO (17:59)
[2021-03-30] MEDS: cefTRIAXone 2 GM/50 ML BAG IVPB (18:00)
--- NOTE | 2021-03-30 19:00 | NCONE_ITS ---
Date of service: 03/30/21 Time of Service: 16:00 Assessment and Plan Assessment and plan (1) Acute ischemic cerebrovascular accident (CVA) involving right middle cerebral artery territory: Status: Acute (2) COVID-19: Status: Acute Assessment and plan: Mr. Sarah is a 65 year-old, left handed man admitted for respiratory failure secondary to COVID and DKA (the latter of which has resolved), who has suffered an apparent right hemisphere ischemic stroke. He has clinical symptoms of left homonymous hemianopsia, left hemineglect, left arm numbness, and left hemiparesis of the arm and leg. Etiology is unknown at this time. Suspect embolic shower. In addition to usual causes of stroke (his risk factors include diabetes and smoking), COVID can create a pro-thrombotic state which can also contribute. While his CRP and D- dimer remain elevated, they are not as high as on admission.... Not clear what testing is available to us given oxygen status and COVID+ state. Will defer to primary team. Based on order of importance and impact on clinical decision making: #1. CTA head and neck vs MRA head/neck vs least desired option - carotid ultrasound. While not likely a candidate for CEA/carotid stenting, if no evidence of stenosis/atherosclerosis, then concern is for hypercoaguable state, and thus would treat with anticoagulation rather than anti-platelets. #2. MRI brain. Not as necessary as #1, but if in an embolic pattern with negative vascular imaging, would support anticoagulation. #3. TTE. This can be done outpatient or once stable. Please check a lipid panel. Agree with addition of aspirin and based on current findings, would treat with DAPT. Load with 300mg clopidogrel and then continue DAPT x 30 days, after which clopidogrel can be stopped. Permissive hypertension. PT/OT. I will continue to follow. Please call with any changes. History of Present Illness History of Present Illness Chief Complaint: stroke Narrative: Handedness: LEFT. HPI: Mr. Sarah is a 65 year-old man who is a smoker and has diabetes. He developed COVID symptoms on 03/10/21, testing positive on 03/13/21. He was admitted on 03/24/21 after presenting with increased shortness of breath, cough, and O2 saturations in the mid-80s. He was found to be in DKA. He has been treated with emdesivir, dexamethasone, baricitinib, ceftriaxone, and doxycycline. He is currently maintaining oxygen saturation on humidified heated high flow with FiO2 of 55%, 50 L flow. This am, he awoke with left arm numbness and clumsiness/weakness. He has not noted any problems with his left leg. No dysarthria or dysphagia. He was not a candidate for tPA as he was outside of the time window. He is not on an anti-platelet at baseline. He is not on full dose anticoagulation for COVID. Hgb A1c on 03/25/21 was >14. He was previously on metformin for pre-diabetes. His D-dimer remains elevated today at 864, but is stable/down since admission 1189. His CRP is up to 6.44 from 2.6 yesterday, but down from admission 17.64. He underwent a CTH today which shows no acute or chronic findings. I reviewed these images personally and this is my personal interpretation. He has been on telemetry since admission with no findings of afib. Consults Requesting physician: Shaina Michaels Review of Systems All systems reviewed & are unremarkable except as noted in HPI and below PFSH Medical History Prediabetes Family History Father Heart disease Paternal Aunt Stroke Mother Diabetes Cancer lymphoma Social History Smoking/Tobacco Use Status: Former Tobacco Use Tobacco: How many years used: 40 Smoking risk assessment performed?: Yes Do you feel safe at home: Yes Do you feel safe in your relationship?: Yes Visit Medication and Allergies Active Medications Generic Name Dose Route Start Last Admin Trade Name Freq PRN Reason Stop Dose Admin Acetaminophen 0 mg 03/24/21 13:33 Acetaminophen 325 Mg Tab PO Q4H PRN PRN Al Hydrox/Mg Hydrox/Simethicone 30 ml 03/24/21 13:33 Mylanta Suspension 30 Ml Cup PO Q2H PRN PRN Albuterol Sulfate 2 puff 03/24/21 13:36 Albuterol Hfa 8 Gm 60 Puff Inh IH Q4H PRN PRN Albuterol/Ipratropium 1 puff 03/27/21 20:00 03/30/21 16:24 Ipratropium/Albuterol 4 Gm 120 Puff Inh IH 1 puff QID [facility] Administration Ascorbic Acid 1,000 mg 03/24/21 20:00 03/30/21 08:50 Ascorbic Acid 500 Mg Tab PO 1,000 mg BID KEV Administration Aspirin 81 mg 03/31/21 08:30 Aspirin E.C. 81 Mg Tabec PO DAILY [facility] Atorvastatin Calcium 80 mg 03/30/21 20:00 Atorvastatin 40 Mg Tab PO QPM [facility] Baricitinib 4 mg 03/25/21 08:30 03/30/21 08:51 Baricitinib 1 Mg Tab PO 4 mg DAILY [facility] Administration Cholecalciferol 2,000 units 03/25/21 08:30 03/30/21 08:50 Cholecalciferol (Vitamin D3) 1,000 Unit Tab PO 2,000 units DAILY [facility] Administration Clopidogrel Bisulfate 75 mg 03/31/21 08:30 Clopidogrel 75 Mg Tab PO DAILY [facility] Device 1 each 03/27/21 18:00 Inhaler, Assist Device DIRECTED [facility] Dexamethasone 6 mg 03/25/21 08:30 03/30/21 08:54 Dexamethasone 10 Mg/Ml Vial IVP 6 mg DAILY [facility] Administration Dextrose 0 gm 03/24/21 13:36 Glucose 40% Oral Solution 15 Gm/37.5 Gm Tube PO DIRECTED PRN Dextrose/Water 0 gm 03/24/21 13:36 Dextrose 50%-Water 25 Gm/50 Ml Syr IVP DIRECTED PRN Dimethicone/Zinc Oxide 0 gm 03/24/21 13:28 Ciaran Protect Cream 142 Gm Tube TP PRN PRN Docusate Sodium 100 mg 03/24/21 13:33 03/27/21 19:46 Docusate Sodium 100 Mg Cap PO 100 mg TID PRN PRN Administration Enoxaparin Sodium 40 mg 03/24/21 16:00 03/30/21 17:58 Enoxaparin 40 Mg/0.4 Ml Syr SC 40 mg Q24H KEV Administration Famotidine 20 mg 03/24/21 20:00 03/30/21 08:50 Famotidine 20 Mg Tab PO 20 mg BID [facility] Administration Guaifenesin 600 mg 03/24/21 20:00 03/30/21 08:50 Guaifenesin 600 Mg Tabcr PO 600 mg BID KEV Administration Sodium Chloride 500 mls @ 0 mls/hr 03/24/21 13:33 03/29/21 03:31 Saline 500ml Bag IV Infused PRN PRN Infusion As Directed Doxycycline Hyclate 100 mg/ 100 mls @ 100 mls/hr 03/27/21 20:00 03/30/21 08:53 Sodium Chloride IVPB 100 mls/hr Q12H KEV Administration Ceftriaxone Sodium/Dextrose 2 gm in 50 mls @ 100 mls/hr 03/28/21 18:00 03/30/21 18:00 Rocephin IVPB 100 mls/hr Q24H KEV Administration Remdesivir 100 mg/ Sodium 100 mls @ 100 mls/hr 03/29/21 16:00 03/30/21 16:09 Chloride IVPB 100 mls/hr Q24H KEV Administration IV Miscellaneous Supplies 1 each 03/24/21 10:00 Iv Access IV DIRECTED [facility] Insulin Aspart 0 units 03/25/21 08:20 03/30/21 18:06 Insulin Aspart 300 Units/3 Ml Pen SC 4 units 0800,1200,1700,2200 KEV Administration Protocol Insulin Aspart 0 units 03/29/21 11:30 03/30/21 18:43 Insulin Aspart 300 Units/3 Ml Pen SC 2 units AC KEV Administration Insulin Glargine 8 units 03/30/21 22:00 Insulin Glargine 300 Units/3 Ml Pen SC HS KEV Insulin Human NPH 15 unit 03/29/21 08:30 03/30/21 10:36 Insulin Nph-Human 300 Units/3 Ml Pen SC 15 units DAILY KEV Administration Ketoconazole 0 gm 03/28/21 20:00 03/30/21 09:34 Ketoconazole 2% Cream 15 Gm Tube TP Not Given BID KEV Loperamide HCl 2 mg 03/25/21 13:02 Loperamide 2 Mg Cap PO QLOOSE PRN Magnesium Hydroxide 30 ml 03/24/21 13:33 Milk Of Magnesia 30 Ml Cup PO DAILY PRN PRN Melatonin 3 mg 03/24/21 22:00 03/29/21 22:05 Melatonin 3 Mg Tab PO 3 mg HS KEV Administration Multi-Ingredient Supplement 1 ounce 03/29/21 08:30 03/30/21 14:10 Protein Nutritional Supplement 16 Gm 1 Ounce Packet PO 1 ounce TID KEV Administration Potassium Chloride 20 meq 03/29/21 08:30 03/30/21 08:50 Potassium Chloride 20 Meq Tabcr PO 20 meq DAILY KEV Administration Psyllium Hydrophilic Mucilloid 1 each 03/28/21 12:40 03/30/21 08:53 Psyllium Pkt PO 1 each BID KEV Administration Sodium Chloride 0 ml 03/24/21 11:22 03/29/21 15:48 Normal Saline Flush 10 Ml Syr IVP 30 ml PRN PRN Administration Allergies No Known Allergies Allergy (Unverified 03/24/21 09:46) Exam Narrative Exam Narrative: Physical Exam: Gen: Patient of apparent stated age, mild distress, tearful Head and face: no facial or cranial abnormalities Neck: Supple, no meningismus, no occipital tenderness Ext: No edema. No clubbing or cyanosis. No bony deformity. Neuro Exam: Language: fluency, naming, repetition, and comprehension intact; Mental Status: AAOx3, current events intact, fund of knowledge intact; Speech: no dysarthria Cranial nerves: Funduscopy: not performed CN II: left homonymous hemianopsia CN III, IV, : left gaze palsy, no nystagmus, pupils symmetric and reactive to light CN V: face sensation intact to LT and PP CN VII: no facial asymmetry noted CN VIII: hearing intact bilaterally CN IX, X: palate rises symmetrically CN XI: trapezius/SCM 5/5 bilaterally CN XII: protrudes tongue symmetrically Sensory: reduced LT in left arm only; reduced sensation to double simultaneous stimulation throughout left hemibody Motor: bulk and tone intact. Fine motor movements reduced on the left. Mild L pronator drift. Strength 5/5 throughout the right hemibody. 4/5 left arm and leg - worse with distraction and better when focusing. Reflexes: +Babinski on the left; toes downgoing on the right. Coordination: FTN and HTS intact bilaterally Gait: not tested Results Last Vital Signs Temp 98.2 F 03/30/21 16:19 Pulse 83 03/30/21 16:19 Resp 16 03/30/21 16:19 BP 114/66 03/30/21 16:19 Pulse Ox 93 03/30/21 16:19 Labs Result diagrams: 03/30/21 08:30 03/30/21 08:30 Labs: Laboratory Results - last 24 hr 03/27/21 03/27/21 03/29/21 20:08 22:20 20:45 WBC RBC Hgb Hct MCV MCH MCHC RDW Plt Count MPV Immature Gran % Neutrophils % Lymphocytes % Monocytes % Eosinophils % Basophils % Nucleated RBC % Absolute Neutrophils Absolute Lymphocytes Absolute Monocytes Absolute Eosinophils Absolute Basophils D-Dimer Sodium Potassium Chloride Carbon Dioxide Anion Gap BUN Creatinine Estimated GFR/1.73 m2 Glucose 242 H D Calcium Magnesium Ferritin Total Bilirubin Conjugated Bilirubin AST ALT Alkaline Phosphatase C-Reactive Protein Total Protein Albumin M. pneumoniae Source SPUTUM M. pneumoniae (PCR) Negative Ur Strep pneumoniae Ag Negative 03/30/21 03/30/21 03/30/21 08:30 08:30 08:30 WBC 8.59 RBC 4.08 L Hgb 12.1 L Hct 35.7 L MCV 87.5 MCH 29.7 MCHC 33.9 RDW 12.5 Plt Count 318 D MPV 10.7 Immature Gran % 1.0 Neutrophils % 69.3 Lymphocytes % 20.7 Monocytes % 8.0 Eosinophils % 0.9 Basophils % 0.1 Nucleated RBC % 0 Absolute Neutrophils 5.94 Absolute Lymphocytes 1.78 Absolute Monocytes 0.69 Absolute Eosinophils 0.08 Absolute Basophils 0.01 D-Dimer 864 H Sodium 140 Potassium 4.1 Chloride 106 Carbon Dioxide 28.6 Anion Gap 5.4 BUN 20 H Creatinine 0.8 Estimated GFR/1.73 m2 >= 60.00 Glucose 114 H D Calcium 8.0 L Magnesium 1.7 L Ferritin 702 H Total Bilirubin 0.4 Conjugated Bilirubin 0.1 AST 16 ALT 22 Alkaline Phosphatase 49 C-Reactive Protein 6.44 H Total Protein 5.2 L Albumin 1.7 L M. pneumoniae Source M. pneumoniae (PCR) Ur Strep pneumoniae Ag
[2021-03-30] MEDS: Melatonin 3 MG TAB PO (21:51)
[2021-03-30] MEDS: Atorvastatin 40 MG TAB 80 MG PO (21:51)
[2021-03-30] MEDS: Insulin Glargine 300 UNITS/3 ML PEN 8 UNITS SC (21:54)
[2021-03-31] VITALS (17 sets, daily range): BP systolic 102–129; BP diastolic 60–80; PULSE 58–78; RESP 17–20; TEMP 21–36.9; O2SAT 89–98
--- NOTE | 2021-03-31 | DI.US_ITS ---
APPROVED REPORT EXAM: Comprehensive 2D, Doppler, and color-flow Echocardiogram Patient Location: In-Patient Room/Bed: 216 Petrophysicist: Aleyda Verdin RDCS (AE) Indications: CVA Other Information Study Quality: Fair. Technically limited study due to inability to position patient, body habitus. Conclusion Normal left ventricular wall thickness and chamber size. Estimated ejection fraction is 55 to 60%. There are no segmental wall motion abnormalities Right ventricle is mildly dilated with normal systolic function Both atria are normal in size There are no structural or hemodynamically significant valvular abnormalities Mildly dilated ascending aorta measuring 3.59 cm Wall motion Left Ventricle The left ventricle is normal size. Left ventricular systolic function is borderline. There is normal left ventricular wall thickness. There is normal LV segmental wall motion. There is no ventricular se ptal defect visualized. LVEF is 55-60%. Right Ventricle Right ventricle is mildly dilated. Right ventricular systolic function is grossly normal. The RVSP is 33.8_ mmHg. Atria The left atrium size is normal. The right atrium size is normal. The interatrial septum is intact wit h no evidence for an atrial septal defect. Aortic Valve The aortic valve is normal in structure. Aortic valve is trileaflet. There is no aortic valvular sten osis. No aortic regurgitation is present. Mitral Valve The mitral valve is normal in structure. No evidence of mitral valve stenosis. Trace mitral regurgita tion. Tricuspid Valve The tricuspid valve is normal in structure. There is no tricuspid valve stenosis. Trace tricuspid reg urgitation. Pulmonic Valve The pulmonary valve is normal in structure. There is no pulmonic valvular stenosis. There is no pulmo ernesto valvular regurgitation. Great Vessels The aortic root is normal in size. The ascending aorta is mildly dilated. Aortic arch is not well vis ualized. IVC is normal in size and collapses >50% with inspiration. Pericardium There is no pericardial effusion. 2D Dimensions IVSD d PLAX 0.85 cm M: 0.6-1.2 LV Vol A2C d MOD 71.3 mL LVPW d PLAX 0.85 cm M: 0.6 - 1.2 LV Vol A4C d MOD 96.4 mL LVID d PLAX 4.80 cm M: 4.2 - 5.8 LA vol/ BSA A2C s A-L 25.4 mL/m2 LVDs 3.30 cm M: 2.5 - 4.0 LA vol/ BSA A4C s A-L 21.8 mL/m2 Ao Root d 3.29 cm M: 3.1 - 3.7 LA Vol/ BSA Biplane s A-L 23.6 mL/m2 RA Area A4C 9.93 cm2 LA Area A4C s MOD 15.22 cm2 RA Vol/ BSA A4C s A-L 10.9 mL/m2 LA Area A2C s MOD 16.51 cm2 Ao Asc Diam d 3.59 cm M: 2.6 - 3.4 LV EF A4C MOD 56.1 % LV EF Teichholz 57.7 % LV EF A2C MOD 51.4 % LVEF (Hernandez's) 54.42 % M: 52 - 72 LV EF Biplane MOD 54.4 % LV Volume 65.60 mL M: 62 - 150 SV 45.77 mL LV Volume Index 36.85 mL/m2 M: 34 - 74 SV Index 25.64 mL/m2 LV Vol Biplane MOD 84.1 mL FS 30.35 % M-Mode TAPSE 1.94 cm (M/F) >1.7 LV Diastology MV E' medial 0.079 (>0.07 m/s) E/A Ratio 0.8 LV E/e MED 7.20 (<14) MV E Vmax 0.57 (0.4-1.3 m/s) MV E' lateral 0.093 (>0.1 m/s) MV A Vmax 0.75 (0.4-1.3 m/s) LV E/e LAT 6.15 (<14) MV E/A Ratio 0.74 MV E/E' medial 7.23 MV E/E' lateral 6.18 Aortic Valve LVOT Area 2.92 cm2 AoV Area Vmax 2.66 cm2 LVOT Vmax 1.25 m/s AoV Area/ BSA (Vmax) 1.49 cm2/m2 LVOT Mean Artie. 0.75 m/s SERJIO Mean Artie. 2.24 cm2 LVOT Peak Grad 6.3 mmHg SERJIO Mean Artie. Index 1.25 cm2/m2 LVOT Mean Grad 2.8 mmHg LVOT VTI 0.203 m LVOT Diam s 1.90 cm AoV Vmax 1.37 m/s Velocity Ratio 0.91 AoV Mean Artie. 0.98 m/s AoV Peak Grad 7.6 mmHg LVOT SV 59.22 mL AoV Mean Grad 4.2 mmHg AoV VTI 0.241 m AoV Area VTI 2.45 cm2 AoV Area/ BSA (VTI) 1.37 cm/m2 Mitral Valve MV DT 293 (160-240 msec) MV PHT 85 msec MV Area PHT 2.59 cm2 MV VTI 0.221 m MV Area VTI 2.68 (4.0-6.0 cm2) Pulmonary Valve PV Vmax 1.03 (0.5-1.5 m/s) RVOT Peak Gr. 3.49 mmHg PV Peak Grad 4.2 mmHg RVOT Mean Gr. 1.70 mmHg PV Mean Grad 2.3 mmHg RVOT VTI 0.186 m PV VTI 0.219 m RVOT Vmax 0.93 m/s Tricuspid Valve TR Peak Grad 30.7 mmHg TR Vmax 2.77 m/s RA Pressure 3.00 mmHg RVSP (TR) 33.8 mmHg
[2021-03-31 07:54] LABS: Abs Immature Grans 0.08 10^3/uL (0.0-0.06); Absolute Eosinophil Count 0.07 10^3/uL (0.0-0.7); Absolute Lymphocyte Count 1.37 10^3/uL (1.2-3.4); Absolute Monocyte Count 0.77 10^3/uL (0.1-0.8); Absolute Neutrophil Count 6.21 10^3/uL (1.2-6.7); Eosinophils % 0.8; HCT 35.4 % (40.0-50.0); Immature Grans % 0.9; Lymphocytes % 16.1; MCH 29.9 pg (27.0-33.0); MCHC 33.9 % (32.0-36.0); MCV 88.1 fL (80-95); MPV 10.4 fL (8.0-11.0); Monocytes % 9.1; Neutrophils % 73.1; Nucleated RBC 0 %; Platelet Count 377 10^3/uL (130-400); RBC 4.02 10^6/uL (4.36-5.78); RDW 12.2 % (11.8-14.1); RDW-SD 39.5 fL
[2021-03-31 08:15] LABS: ALT 16 U/L (16-63); AST 14 U/L (15-37); Albumin 1.7 g/dL (3.4-5.0); Alkaline Phosphatase 50 U/L (46-116); Anion Gap 3.7 mmol/L (3-11); BUN 23 mg/dL (7-18); Bilirubin, Direct 0.2 mg/dL (0.0-0.2); Bilirubin, Total 0.6 mg/dL (0.2-1.0); CO2 30.3 mmol/L (21.0-32.0); CREATININE 0.7 mg/dL (0.70-1.30); Calcium 8.3 mg/dL (8.5-10.1); Chloride 107 mmol/L (98-107); Glucose 93 mg/dL (74-106); Potassium 3.9 mmol/L (3.5-5.1); Sodium 141 mmol/L (136-145); Total Protein 5.2 g/dL (6.4-8.2)
[2021-03-31 08:18] LABS: C-Reactive Protein 5.26 mg/dL (0.0-0.3); Magnesium 2.1 mg/dL (1.8-2.4)
[2021-03-31 08:35] LABS: D-Dimer 1159 ng/mlFEU (<500)
[2021-03-31 08:44] LABS: Calculated LDL 58 mg/dL (<100); Cholesterol 129 mg/dL (<200); Ferritin 827 ng/mL (26-388); HDL Cholesterol 62 mg/dL (40-60); Triglyceride 49 mg/dL (<150)
[2021-03-31] MEDS: Omnipaque 350 MG/ML 100 ML BTL IJ (08:58)
[2021-03-31] MEDS: Normal Saline - Diluent 50 ML VIAL IV (08:59)
--- NOTE | 2021-03-31 09:10 | NT_ITS ---
Date of service: 03/31/21 Time of Service: 09:10 Occupational Therapy Notes 03/31/21 OT consult received and pts chart was reviewed. OT went to consult with pt who per COMPUTED TOMOGRAPHY SCANNER OPERATOR is down for CT scan testing. OT will attempt to consult with pt tomorrow. Maru Green OTR/[facility]
--- NOTE | 2021-03-31 09:34 | DI.CT_ITS ---
Exam(s) CT BRAIN NECK CTA EXAM: CT BRAIN NECK CTA CLINICAL HISTORY: Stroke with evolving symptoms. TECHNIQUE: Imaging Protocol: Axial CT angiography was performed with multi-slice acquisition and mu lti-planar and/or 3D reconstructions. CONTRAST MATERIAL: Intravenous: Omnipaque 350 Contrast volume:structured data in ml COMPARISON: CT CT CHEST PE CTA from 03/24/2021 FINDINGS: CT angiography of the cervical cranial region was performed according to the usual protocol with intr avenous infusion of 100 cc of Omnipaque 350.. Initial noncontrast scanning of the head shows areas decreased attenuation in the right frontoparieta l region consistent with evolving infarction. No evidence of intracranial hemorrhage, mass effect, m idline shift.. Visualized lung apices show peripheral infiltrates which are nonspecific but consistent with the pedro ent's known COVID infection.. Visualized portions of thoracic aorta and pulmonary arterial circulati on are unremarkable. There is no evidence of a cervical mass or adenopathy. The tracheal laryngeal st ructures appear intact. The common, internal, and external carotid arteries are within normal limits in diameter in the cervi tobin region with no evidence of aneurysm, stenosis, or dissection. There are scattered wall calcifica tions without significant stenosis. The vertebral arteries are unremarkable in appearance in the cervical region with no evidence of aneu rysm, stenosis, or dissection. Intracranial portions of the internal carotid arteries appear normal with no evidence of aneurysm, st enosis, or dissection. Intracranial vertebral arteries and basilar artery appear normal with no evidence of aneurysm, stenos is or dissection. No aneurysm identified in the region of the [id number]. The anterior, middle, and posterior cer ebral arteries and major branches appear intact with no evidence of aneurysm, stenosis, or dissection . No enhancing brain lesion identified on 5 minutes delayed images.. IMPRESSION: Probable acute or subacute right fronto parietal infarction, otherwise negative CT angiogram examinat ion. Additional evaluation with MR of the brain may be considered to confirm acute/subacute cerebral infarct. RADIATION DOSE DELIVERED: 1076.36 mGy.cmTotal DLP 1076.36 mGy.cm Total DLP 83.82 mGy CTDIvol DATA REPOSITORY: All CT scans at this facility are submitted to the National Radiology Data Registry (NRDR) Dose Index Registry (DIR) with the [employer] (ACR). RADIATION OPTIMIZATION: All CT scans at this facility use at least one of these dose optimization te chniques: automated exposure control; mA and/or kV adjustment per patient size (includes targeted exa ms where dose is matched to clinical indication); or iterative reconstruction.
[2021-03-31] MEDS: Ipratropium/Albuterol 4 GM 120 PUFF INH IH ×3 (09:48→20:40)
[2021-03-31] MEDS: Enoxaparin 80 MG/0.8 ML SYR 70 MG SC ×2 (10:16→22:12)
[2021-03-31] MEDS: Dexamethasone 10 MG/ML VIAL 6 MG IVP (10:18)
[2021-03-31] MEDS: guaiFENesin 600 MG TABCR PO (10:18)
[2021-03-31] MEDS: Famotidine 20 MG TAB PO ×2 (10:18→20:39)
[2021-03-31] MEDS: Cholecalciferol (Vitamin D3) 1,000 UNIT TAB 2000 UNITS PO (10:19)
[2021-03-31] MEDS: Ascorbic Acid 500 MG TAB 1000 MG PO ×2 (10:19→20:39)
[2021-03-31] MEDS: Aspirin E.C. 81 MG TABEC PO (10:19)
[2021-03-31] MEDS: Potassium Chloride 20 MEQ TABCR PO (10:19)
[2021-03-31] MEDS: DOXYCYCLINE 100 MG in Normal Saline 100 ML IVPB ×2 (11:54→20:34)
[2021-03-31] MEDS: Insulin Aspart 300 UNITS/3 ML PEN SC ×4 (12:27→22:22)
[2021-03-31] MEDS: Insulin NPH-Human 300 UNITS/3 ML PEN 15 UNIT SC (12:30)
--- NOTE | 2021-03-31 13:51 | CHAPLAIN ---
I received phone messages from Lazaro's sister, Melissa Mir, who is also one of our on-call chaplains, asking me if I could connect her with someone to talk about Lazaro. Later in the day, [employer] Zina, spoke with Mary Jane and other family members. Lazaro was moved out of the ICU a few days ago, to med/surg. He is COVID posititive so I have not visited him. Lazaro is from [place], but is building a house up here. He'll likely stay with Mary Jane after he is discharged. His and daughter have been in touch by phone. Sometimes they have difficult reaching Lazaro on his cell phone or getting him to answer the phone in his room.
--- NOTE | 2021-03-31 14:51 | W.PM.PROGNOT ---
Date of Service Date of service: 03/31/21 Time of Service: 14:51 Assessment and Plan Assessment and plan (1) Cerebrovascular accident (CVA) associated with severe acute respiratory syndrome coronavirus 2 (SARS-CoV-2) infection: Status: Acute Assessment and plan: Discussed with Dr De Leon. Patient transitioned from dual antiplatelet tx to full dose lovenox x 2 weeks, followed by asa alone. Await echo results. I do not think that the patient would tolerate the MRI with his oxygen requirement today. Continue PT/OT. MOnitor neurochecks. (2) COVID-19: Status: Acute Assessment and plan: Encephalopathy better, but complicated by CVA above. Continue remdesivir, dexamethasone, baricitinib. Continue antibiotics through tomorrow. Encourage proning, IS, acapella. Provide vitamin supplementaion. Wean O2 as tolerated. (3) Encephalopathy acute: Status: Resolved Assessment and plan: Due to COVID-19, steroids, possibly also CVA. MOnitor mental status. (4) Respiratory failure with hypoxia: Status: Acute Assessment and plan: Due to COVID-19. As above. Qualifiers: Chronicity: acute Qualified Code(s): J96.01 - Acute respiratory failure with hypoxia (5) DKA (diabetic ketoacidosis): Status: Resolved Assessment and plan: A1C >14.00. Increase basal insulin. Qualifiers: Diabetes mellitus type: type 2 Diabetes mellitus complication detail: without coma Qualified Code(s): E11.10 - Type 2 diabetes mellitus with ketoacidosis without coma (6) Newly diagnosed diabetes: Status: Acute Assessment and plan: I am clarifying whether or not the patient was actually hypoglycemic this afternoon (the blood sugar at 12:28 was 279, 12:30 was 67). FBG 93 on chemistry. Decrease lantus and NPH. As above (7) DVT prophylaxis: Status: Acute Assessment and plan: On full dose lovenox. (8) Discharge planning issues: Status: Acute Assessment and plan: Full Code Continues to require hospitalization. Discussed with Dr De Leon. Spoke with daughter Alona Zimmerman both yesterday and today with updates. Subjective Subjective Interval history since last seen: Lazaro had a new L facial droop that was noted overnight as well as dysarthria. Stat CTA head/neck was obtained, revealing a probable acute to subacute right fronto parietal infarction. Otherwise CTA was negative. MRI was recommended in follow up, but the patient cannot tolerate it at this time due to his oxygen requirement. He spent the night on CPAP (pressure of 8, 40% FiO2). Today he is sitting up in bed, on humidified heated high flow with FiO2 between 40 - 50 % (?46%). THe patient states he does not have a headeache, dizziness, difficulty swallowing, chest pain, shortness of breath unless he moves. No n/v. His left hand is still clumsy. He is unsteady on his feet. Exam Narrative Exam Narrative: General: Tearful middle-aged male, A&ox3, new L facial droop. No dyspnea/tachypnea. L hand still clumsy. HEENT: L-sided neglect is less noticeable today. EOMI, MMM Cardiovascular: RRR, no m/r/g Lungs: quiet crackles at B bases Gastrointestinal: soft, nontender, nondistended Extremities: no edema BLE's, no lesions on B feet, 2+ pedal pulses B Objective Last Vital Signs Temp 36.9 C 03/31/21 14:11 Pulse 72 03/31/21 14:11 Resp 18 03/31/21 14:11 BP 115/80 03/31/21 14:11 Pulse Ox 96 03/31/21 14:11 Laboratory Results - last 24 hr 03/31/21 03/31/21 03/31/21 07:30 07:30 07:30 WBC 8.50 RBC 4.02 L Hgb 12.0 L Hct 35.4 L MCV 88.1 MCH 29.9 MCHC 33.9 RDW 12.2 Plt Count 377 MPV 10.4 Immature Gran % 0.9 Neutrophils % 73.1 Lymphocytes % 16.1 Monocytes % 9.1 Eosinophils % 0.8 Basophils % 0.0 Nucleated RBC % 0 Absolute Neutrophils 6.21 Absolute Lymphocytes 1.37 Absolute Monocytes 0.77 Absolute Eosinophils 0.07 Absolute Basophils 0.00 APTT D-Dimer Sodium 141 Potassium 3.9 Chloride 107 Carbon Dioxide 30.3 Anion Gap 3.7 BUN 23 H Creatinine 0.7 Estimated GFR/1.73 m2 >= 60.00 Glucose 93 Calcium 8.3 L Magnesium 2.1 Ferritin 827 H Total Bilirubin 0.6 Conjugated Bilirubin 0.2 AST 14 L ALT 16 Alkaline Phosphatase 50 C-Reactive Protein 5.26 H Total Protein 5.2 L Albumin 1.7 L Triglycerides 49 Total Cholesterol 129 LDL Cholesterol, Calc 58 HDL Cholesterol 62 03/31/21 03/31/21 07:30 07:30 WBC RBC Hgb Hct MCV MCH MCHC RDW Plt Count MPV Immature Gran % Neutrophils % Lymphocytes % Monocytes % Eosinophils % Basophils % Nucleated RBC % Absolute Neutrophils Absolute Lymphocytes Absolute Monocytes Absolute Eosinophils Absolute Basophils APTT 25.0 D-Dimer 1159 H Sodium Potassium Chloride Carbon Dioxide Anion Gap BUN Creatinine Estimated GFR/1.73 m2 Glucose Calcium Magnesium Ferritin Total Bilirubin Conjugated Bilirubin AST ALT Alkaline Phosphatase C-Reactive Protein Total Protein Albumin Triglycerides Total Cholesterol LDL Cholesterol, Calc HDL Cholesterol
--- NOTE | 2021-03-31 15:08 | PDOC.CMPRO ---
- If Service Date Differs Date of service: 03/31/21 Time of Service: 15:08 Care Management Progress Note S/O: CM tried to contact patient via phone, patient did not answer. Dr. Michaels met with Lazaro today and he is sad and crying. CM will arrange a virtual meeting with Lazaro's daughter Araceli. Dr. Michaels updated Araceli. CM continues to follow. A: 65 year old male admitted to [facility] on 03/24/21 for COVID-19, pneumonia w/ hypoxia, DKA P: Anticipate Lazaro will be discharged to his sister Melissa's home in [place] with no new services, when medically cleared by . He lives in [place]. Undetermined if patient will need home 02 at this time. He will follow up with his PCP and plan of care as prescribed and transport via private vehicle with family.
--- NOTE | 2021-03-31 16:41 | W.PM.PROGNOT ---
Date of Service Date of service: 03/31/21 Time of Service: 16:41 Assessment and Plan Assessment and plan (1) Acute ischemic cerebrovascular accident (CVA) involving right middle cerebral artery territory: Status: Acute (2) COVID-19: Status: Acute Assessment and plan: Mr. Sarah is a 65 year-old, left handed man admitted for respiratory failure secondary to COVID and DKA (the latter of which has resolved), who has suffered a right hemisphere ischemic stroke -embolic appearing infarcts in right frontal and parietal cortexes. He has clinical symptoms of left homonymous hemianopsia, left hemineglect, dysarthria, left arm numbness, and left hemiparesis of the arm and leg - though these are improving. Etiology remains unknown given limited work-up due to COVID+ status. Infarcts appear embolic on CT and thus an aortic atheroma vs COVID-induced thrombotic state (supported by elevated D-dimer and inflammatory markers) are the only obvious possibilities. Because of this, I agree with transition to full dose Lovenox. I would continue full anticoagulation x 2 weeks along with aspirin, after which he should continue on aspirin only. Permissive hypertension. PT/OT. Goal LDL <70. Goal SBP 120-140. Goal A1c <7. Please call with any further questions or concerns. He should follow-up in the neurology clinic after discharge. Subjective Subjective Interval history since last seen: -CTA head/neck: atherosclerosis at the carotid bulbs but no significant stenosis. Subacute infarcts seen in right frontal cortex and right parietal cortex. I reviewed these images personally and this is my personal interpretation. Overnight, developed dysarthria, though that had improved by the time I had seen him. Because of this and CTA findings, Plavix was stopped and he was started on full anticoagulation with Lovenox. He notes some improvement in left arm clumsiness. Seems to overall feeling better. O2 requirements improving. Teary again today. Exam Narrative Exam Narrative: Physical Exam: Constitutional: Patient of apparent stated age, no acute distress Neuro: MS/Language/Speech: Alert, oriented, clear language (fluency and comprehension), no dysarthria CN: continues to have dense L homonymous hemianopsia; L gaze palsy has resolved with intact EOM Motor: Normal bulk and tone. FMM reduced on left, no pronator drift. 5/5 strength in right upper and bilateral lower extremities. LUE remains 4+/5. Sensation: Intact to light touch throughout however continues to have distinction to DSS on left Coordination: Finger to nose performed without dysmetria Objective Last Vital Signs Temp 98.4 F 03/31/21 14:11 Pulse 72 03/31/21 14:11 Resp 18 03/31/21 14:11 BP 115/80 03/31/21 14:11 Pulse Ox 89 L 03/31/21 16:15 Laboratory Results - last 24 hr 03/31/21 03/31/21 03/31/21 07:30 07:30 07:30 WBC 8.50 RBC 4.02 L Hgb 12.0 L Hct 35.4 L MCV 88.1 MCH 29.9 MCHC 33.9 RDW 12.2 Plt Count 377 MPV 10.4 Immature Gran % 0.9 Neutrophils % 73.1 Lymphocytes % 16.1 Monocytes % 9.1 Eosinophils % 0.8 Basophils % 0.0 Nucleated RBC % 0 Absolute Neutrophils 6.21 Absolute Lymphocytes 1.37 Absolute Monocytes 0.77 Absolute Eosinophils 0.07 Absolute Basophils 0.00 APTT D-Dimer Sodium 141 Potassium 3.9 Chloride 107 Carbon Dioxide 30.3 Anion Gap 3.7 BUN 23 H Creatinine 0.7 Estimated GFR/1.73 m2 >= 60.00 Glucose 93 Calcium 8.3 L Magnesium 2.1 Ferritin 827 H Total Bilirubin 0.6 Conjugated Bilirubin 0.2 AST 14 L ALT 16 Alkaline Phosphatase 50 C-Reactive Protein 5.26 H Total Protein 5.2 L Albumin 1.7 L Triglycerides 49 Total Cholesterol 129 LDL Cholesterol, Calc 58 HDL Cholesterol 62 03/31/21 03/31/21 07:30 07:30 WBC RBC Hgb Hct MCV MCH MCHC RDW Plt Count MPV Immature Gran % Neutrophils % Lymphocytes % Monocytes % Eosinophils % Basophils % Nucleated RBC % Absolute Neutrophils Absolute Lymphocytes Absolute Monocytes Absolute Eosinophils Absolute Basophils APTT 25.0 D-Dimer 1159 H Sodium Potassium Chloride Carbon Dioxide Anion Gap BUN Creatinine Estimated GFR/1.73 m2 Glucose Calcium Magnesium Ferritin Total Bilirubin Conjugated Bilirubin AST ALT Alkaline Phosphatase C-Reactive Protein Total Protein Albumin Triglycerides Total Cholesterol LDL Cholesterol, Calc HDL Cholesterol
[2021-03-31] MEDS: Normal Saline Flush 10 ML SYR IVP (17:18)
[2021-03-31] MEDS: cefTRIAXone 2 GM/50 ML BAG IVPB (19:04)
[2021-03-31] MEDS: Atorvastatin 40 MG TAB 80 MG PO (20:39)
[2021-03-31] MEDS: Melatonin 3 MG TAB PO (22:12)
[2021-03-31] MEDS: Insulin Glargine 300 UNITS/3 ML PEN SC (22:25)
[2021-04-01] VITALS (14 sets, daily range): BP systolic 103–134; BP diastolic 53–74; PULSE 54–92; RESP 16–24; TEMP 36.2–36.5; O2SAT 82–96
--- NOTE | 2021-04-01 01:26 | NUR.NOTE ---
Nursing Note: pt sleeping and self repositioning well
--- NOTE | 2021-04-01 03:11 | NUR.NOTE ---
pt awakens easoily to voice. repositions self. Denies any need of anything. Given a warm blanket and instructed to call with any needs. Nursing Note:
--- NOTE | 2021-04-01 06:34 | NUR.NOTE ---
Nursing Note:Bed changed fresh gown and washed upper torso with bath wipes plus legs and feet. socks changed
[2021-04-01 07:43] LABS: Abs Immature Grans 0.06 10^3/uL (0.0-0.06); Absolute Eosinophil Count 0.07 10^3/uL (0.0-0.7); Absolute Lymphocyte Count 1.41 10^3/uL (1.2-3.4); Absolute Monocyte Count 0.72 10^3/uL (0.1-0.8); Absolute Neutrophil Count 6.94 10^3/uL (1.2-6.7); Eosinophils % 0.8; HCT 35.9 % (40.0-50.0); HGB 12.2 g/dL (13.5-17.5); Immature Grans % 0.7; Lymphocytes % 15.3; MCV 88.2 fL (80-95); MPV 10.1 fL (8.0-11.0); Monocytes % 7.8; Neutrophils % 75.4; Nucleated RBC 0 %; Platelet Count 422 10^3/uL (130-400); RBC 4.07 10^6/uL (4.36-5.78); RDW 12.7 % (11.8-14.1); RDW-SD 40.9 fL
[2021-04-01 07:59] LABS: ALT 15 U/L (16-63); AST 16 U/L (15-37); Albumin 1.7 g/dL (3.4-5.0); Alkaline Phosphatase 51 U/L (46-116); Anion Gap 5.2 mmol/L (3-11); BUN 22 mg/dL (7-18); Bilirubin, Direct 0.2 mg/dL (0.0-0.2); Bilirubin, Total 0.5 mg/dL (0.2-1.0); C-Reactive Protein 5.51 mg/dL (0.0-0.3); CO2 28.8 mmol/L (21.0-32.0); CREATININE 0.8 mg/dL (0.70-1.30); Calcium 8.1 mg/dL (8.5-10.1); Chloride 106 mmol/L (98-107); Glucose 144 mg/dL (74-106); Magnesium 1.9 mg/dL (1.8-2.4); Sodium 140 mmol/L (136-145); Total Protein 5.4 g/dL (6.4-8.2)
[2021-04-01 08:35] LABS: Ferritin 703 ng/mL (26-388)
[2021-04-01] MEDS: guaiFENesin 600 MG TABCR PO ×2 (08:48→20:38)
[2021-04-01] MEDS: Ascorbic Acid 500 MG TAB 1000 MG PO ×2 (08:48→20:38)
[2021-04-01] MEDS: Potassium Chloride 20 MEQ TABCR PO (08:48)
[2021-04-01] MEDS: Aspirin E.C. 81 MG TABEC PO (08:49)
[2021-04-01] MEDS: Cholecalciferol (Vitamin D3) 1,000 UNIT TAB 2000 UNITS PO (08:49)
[2021-04-01] MEDS: Famotidine 20 MG TAB PO ×2 (08:49→20:38)
[2021-04-01] MEDS: Dexamethasone 10 MG/ML VIAL 6 MG IVP (08:49)
[2021-04-01] MEDS: DOXYCYCLINE 100 MG in Normal Saline 100 ML IVPB (08:50)
[2021-04-01 08:51] LABS: D-Dimer 958 ng/mlFEU (<500)
[2021-04-01] MEDS: Insulin Aspart 300 UNITS/3 ML PEN SC ×7 (08:51→23:24)
[2021-04-01] MEDS: Insulin NPH-Human 300 UNITS/3 ML PEN 10 UNIT SC (08:54)
[2021-04-01] MEDS: Enoxaparin 80 MG/0.8 ML SYR 70 MG SC ×2 (09:12→23:20)
[2021-04-01] MEDS: Ipratropium/Albuterol 4 GM 120 PUFF INH IH ×4 (10:35→23:22)
[2021-04-01] MEDS: Albuterol HFA 8 GM 60 PUFF INH IH (11:43)
--- NOTE | 2021-04-01 13:24 | OT.INIE ---
Occupational Therapy Notes Inpatient Occupational Therapy Evaluation Date: 04/01/21 Referring Doctor:Shaina Michaels MD OT Orders: Non Urgent Precautions: Fall, Covid + precautions, Full PATIENT PROFILE/ADMITTING DIAGNOSIS: Pt is a 65 year old male who was admitted through the ED for the following dx of CVA, encephalopathy, neurologial deficit, respiratory failure/ hypoxia, DM, Covid 19 and DKA. Past Medical History: Medical History (Updated 03/24/21 @ 18:59 by Shaina Michaels MD) Prediabetes Social History/Home Situation: Pt states that his baseline level of function is (I). He lives in a private home with his and states that he is currently building a home in [place] off [address] in [place]. He reports that he used to drive (I) and has no steps to enter his home or inside of his home. He had no hx of deficits that would limit him from being (I), no adaptive equipment at baseline. Equipment owned/DME: None SUBJECTIVE: Pt was lying in bed when OT arrived, he was agreeable to consult and reports that he would like to get out of his bed if he can. OBJECTIVE: General Observation: pleasant, (L) side neglect, (L) visual issues, IV in (L) hand at base of thumb Mental Status: A&Ox3 Pain: no c/o pain ROM: RUE AROM WFL L UE AROM WFL with delayed response to vc STRENGTH: RUE 5/5 throughout LUE 5/5 throughout FUNCTIONAL MOBILITY/ADLS: Transfers with gait belt and FWW pending PT evaluation Supine-sit (I) Sit-Stand CGA Stand-sit CGA with min vc Bed-Chair CGA with min vc BATHING sitting in chair with max (A) set/clean up Bathing UE/LE OT assessed pts (L) UE function for his bathing routine. Pts decreased coordination and cognitive awareness in spatial situations limits his overall use of his (L) UE at this time. OT provided pt with min-mod vc throughout. He was able to wash his face, abdomen and (R) UE. However he would drop the clothe out of his (L) UE and continue to move his (L) UE like he was washing without realizing it. Functionally pts ROM is good but his decreased awareness of his (L) UE is his biggest limiting factor for his ADLs at this time. DRESSING sitting in chair with mod vc Dressing UE pt denies Dressing LE (I) don and doffing (B) socks TOILETING Mod (A) with urinal BALANCE: Static sitting Good Dynamic Sitting Good with occasional (L) side sway Static Standing Good Dynamic Standing Good with occasional (L) sway SPECIAL TESTS: Daily Activity Limitations Standardized Measure [facility] AM -PAC ?6 clicks? Daily Activity Inpatient Short Form: Raw score: 19 INFORMED CONSENT/EDUCATION: Pt instructed in purpose of OT Consult and plan of care. ASSESSMENT: Patient is a 65-year-old male referred to occupational therapy services with diagnosis of CVA, encephalopathy, neurologial deficit, respiratory failure/ hypoxia, DM, Covid 19 and DKA. Patient presents with clinical signs and symptoms consistent with dx, as demonstrated by the following impairment level findings/ functional limitations: Impairments in ADL/IADL and leisure activites, decreased gross and fine motor control of (L) UE, decreased coordination control, decreased body awareness with (L) UE, impairments in functional mobility required for ADL performance. Patient is assessed as a Moderate 19535 complexity based on the following: History: see above Examination: see functional limitations as noted above Presentation: evolving Decision Making: [facility] score 19 GOALS Goals x1 week 1. Transfers (I) 2. Dressing sitting in chair (I) don and doffing shirt and pants 3. Bathing standing at sink (I) 4. Toileting on toilet (I) 5. Eating (I) PLAN OF CARE/TREATMENT PLAN: 1x/day, 5 days/ week x 1week Initiate Occupational Therapy Services for bathing, dressing, grooming, toileting, eating, transfer training. DISCHARGE RECOMMENDATIONS Based on pts current level of function, OT feels that pt would benefit from SNF vs. services when medically cleared per MD. TREATMENT TIME/MINUTES/CODES 20978, [id number], 30 minutes [facility]
--- NOTE | 2021-04-01 15:04 | PT.INIE ---
Date of service: 04/01/21 Time of Service: 14:30 PT Notes Visit Reasons: COVID-19, pneumonia with hypoxia, DKA Inpatient Physical Therapy Evaluation Date: 04/01/21 Referring Doctor: Shaina Michaels MD PT Orders: PT CONSULT: Limited Ability Precautions: COVID +, L UE neglect Patient Profile/Admitting Diagnosis: Admitted for respiratory failure secondary to COVID and DKA, who has suffered a right hemisphere ischemic stroke. PMHX: Prediabetes, former tobacco user Social History/Home Situation: Lives in a private home with his locally, this is a one-story ranch style home without stairs to enter. Premorbid level of function was completely independent, he was even building his own house. He is left-hand dominant Equipment Owned/DME: None Subjective: Denies pain, states he feels completely normal. His oxygen nasal cannula continues to fall off and he is having a hard time putting it back on because of the lack of coordination his left hand. He has noted that his left upper extremity coordination has greatly improved over the course of the day. Objective: General Observation: Seated in recliner chair, legs elevated, NC 5 L oxygen, lacking coordination left upper extremity Mental Status: A&O x3 Pain: None Vital Signs: BP 122/54, HR 90, O2 saturation 85% initially not having had nasal oxygen as he had fallen off his face, after replacing NC it did increase to 90%. O2 saturation ranged from 85 to 90% throughout activity evaluation ROM: Right Upper Extremity: WNL Left Upper Extremity: Left shoulder elevation to approximately 120 degrees of flexion and scaption, elbow wrist digits are WNL Right Lower Extremity: WNL Left Lower Extremity: WNL Strength: Right Upper Extremity: Grossly 5/5 throughout Left Upper Extremity: Left shoulder flexion and abduction 4/5, elbow flexion 4/5, elbow extension 5/5, wrist flexion and extension both 4+/5, marketing information manager good and symmetrical with right side Right Lower Extremity: Grossly 5/5 Left Lower Extremity: Grossly 5/5 Sensation: Decreased left hand Bed Mobility/Transfers: Sit to stand and stand to sit close supervision Chair to bed close supervision with RW, primarily utilizing right upper extremity to manipulate assistive device Difficulty with adjusting bedsheets and linens, due to left upper extremity fine motor control loss Gait: 15 feet, RW, primarily manipulating RW with right upper extremity close supervision. Completes another 15 feet without assistive device, and close supervision.. Changes direction without use of assist device, close supervision, with good stability. Distance of ambulation limited by patient's quarantine within patient room. Balance: Static Sitting: Good Dynamic Sitting: Good Static Standing: Good Dynamic Standing: Fair Stage 4 Balance Test Time (seconds) Feet together 10 Partial tandem 10 Tandem 5 One foot unable Special Tests: Mobility Limitations Standardized Measure [facility] AM-PAC 6 clicks Basic Mobility Inpatient Short Form: 28% disability Informed Consent/Education: Patient instructed in purpose of PT consult and plan of care. Assessment: Patient is a 65 year old male referred to physical therapy services with the diagnosis of limited ability due to complications of respiratory failure secondary to Covid and DKA, with a right hemisphere CVA. Patient presents with clinical signs and symptoms consistent with left upper extremity weakness, mild dynamic balance impairment, fine motor control loss of left upper extremity, coordination difficulty, contributing to poor confidence with functional ambulation and difficulty with use of assistive device as he initiates ambulation activities. Patient currently requires skilled PT intervention to continue with left upper extremity strengthening coordination tasks to facilitate neuromuscular recovery, educate use of SPC in the right hand to improve confidence and steadiness with ambulation as he attempts to resume normal ambulation activities while recovering from Covid. Patient is assessed as a moderate complexity based on the following: History: Prediabetes, history of smoking, Covid, CVA, DKA Examination: See assessment Presentation: Evolving Decision Making: Moderate Goals: Goals X1 week 1. Supine-Sit independent 2. Sit-Supine independent 3. Sit-Stand independent 4. Stand-Sit independent 5. Bed-Chair independent 6. Chair-Bed independent 7. Gait household distance of at least 40 to 50 feet, without use of oxygen and right SPC 8. Independent with home exercise program 9. Balance good dynamic balance with use of SPC, passes stage IV balance test Plan of Care/Treatment Plan: 1-2x/day, 5-7 days/week x 1 week. Plan of care has been reviewed with the ASSISTANT WOMEN'S ROWING COACH providing the service under Physical Therapy direction. Initiate Physical Therapy intervention for strengthening, bed mobility, transfers, gait, stairs, balance training, use of assistive device. DISCHARGE RECOMMENDATIONS: Home, with . Patient may require use of SPC at time of discharge, progression towards goals of physical abilities at that time will determine. Outpatient OT recommended for continued rehabilitation of left upper extremity capabilities. TREATMENT CODE/TIME: 25 minutes, [id number]
[2021-04-01] MEDS: cefTRIAXone 2 GM/50 ML BAG IVPB (18:38)
--- NOTE | 2021-04-01 19:28 | W.PM.PROGNOT ---
Date of Service Date of service: 04/01/21 Time of Service: 19:29 Assessment and Plan Assessment and plan (1) Cerebrovascular accident (CVA) associated with severe acute respiratory syndrome coronavirus 2 (SARS-CoV-2) infection: Status: Acute Assessment and plan: Continue full dose lovenox + asa x 2 weeks, followed by asa alone. Echo reviewed: without significant abnormalities. LVEF 55-60%, no wall motion abnormalities, RV is mildly dilated, RV systolic function is normal. Consider an MRI on Sunday if O2 requirements improve. Continue PT/OT. Monitor neurochecks. (2) COVID-19: Status: Acute Assessment and plan: Complicated by CVA. Encephalopathy seems to have resolved. Continue remdesivir, dexamethasone, baricitinib. Finish antibiotics. Encourage proning, IS, acapella. Provide vitamin supplementaion. Wean O2 as tolerated. CPAP tonight. (3) Encephalopathy acute: Status: Resolved Assessment and plan: Due to COVID-19, steroids, possibly also CVA. MOnitor mental status. (4) Respiratory failure with hypoxia: Status: Acute Assessment and plan: Due to COVID-19. As above. Qualifiers: Chronicity: acute Qualified Code(s): J96.01 - Acute respiratory failure with hypoxia (5) DKA (diabetic ketoacidosis): Status: Resolved Assessment and plan: A1C >14.00. Increase prandial coverage amd NPH insulin. Qualifiers: Diabetes mellitus type: type 2 Diabetes mellitus complication detail: without coma Qualified Code(s): E11.10 - Type 2 diabetes mellitus with ketoacidosis without coma (6) Newly diagnosed diabetes: Status: Acute Assessment and plan: Keep lantus the same. Increase prandial insulin and NPH slightly. As above (7) DVT prophylaxis: Status: Acute Assessment and plan: On full dose lovenox. (8) Discharge planning issues: Status: Acute Assessment and plan: Full Code Continues to require hospitalization. Subjective Subjective Interval history since last seen: Mr Sarah states he is doing better today. He was transitioned to a regular nasal cannula - 5L - and, per RT, did well with oxygen saturations today. He agreed to spend the night on CPAP (was not on CPAP last night). He is on PEEP of 8, FiO2 of 40%, saturating 95%. He agrees to proning tonight. Denies dizziness, chest pain, shortness of breath, nausea, numbness/tingling, headache. States his left hand has more dexterity today and is doing better. Exam Narrative Exam Narrative: General: Middle aged male who is much more upbeat and whose mentation is much clearer, on CPAP, comfortable, A&ox3 No dyspnea/tachypnea. L hand significantly less clumsy. He sees me to his left - Lsided neglect not appreciated today. HEENT: Wearing CPAP, EOMI. Cardiovascular: RRR, no m/r/g Lungs: quiet crackles at B bases Gastrointestinal: soft, nontender, nondistended Extremities: no edema BLE's, no lesions on B feet, 2+ pedal pulses B Objective Last Vital Signs Temp 36.2 C L 04/01/21 15:04 Pulse 71 04/01/21 18:47 Resp 24 04/01/21 18:47 BP 122/54 L 04/01/21 15:04 Pulse Ox 96 04/01/21 18:47 Laboratory Results - last 24 hr 04/01/21 04/01/21 04/01/21 07:30 07:30 07:30 WBC 9.20 RBC 4.07 L Hgb 12.2 L Hct 35.9 L MCV 88.2 MCH 30.0 MCHC 34.0 RDW 12.7 Plt Count 422 H MPV 10.1 Immature Gran % 0.7 Neutrophils % 75.4 Lymphocytes % 15.3 Monocytes % 7.8 Eosinophils % 0.8 Basophils % 0.0 Nucleated RBC % 0 Absolute Neutrophils 6.94 H Absolute Lymphocytes 1.41 Absolute Monocytes 0.72 Absolute Eosinophils 0.07 Absolute Basophils 0.00 D-Dimer 958 H Sodium 140 Potassium 4.0 Chloride 106 Carbon Dioxide 28.8 Anion Gap 5.2 BUN 22 H Creatinine 0.8 Estimated GFR/1.73 m2 >= 60.00 Glucose 144 H Calcium 8.1 L Magnesium 1.9 Ferritin 703 H Total Bilirubin 0.5 Conjugated Bilirubin 0.2 AST 16 ALT 15 L Alkaline Phosphatase 51 C-Reactive Protein 5.51 H Total Protein 5.4 L Albumin 1.7 L
--- NOTE | 2021-04-01 19:51 | CMPROGNOTE_ITS ---
- If Service Date Differs Date of service: 04/01/21 Time of Service: 19:51 Care Management Progress Note S/O: Lazaro remains on Covid precautions, therefore CM was not able to meet with him in person today. Per report, he was transitioned to a regular nasal cannula today on 5L. His echo report was read without significant abnormalities. He may have an MRI on sunday if his O2 requirements improve. His O2 will be weaned as tolerated. CM will continue to follow. A: Lazaro is a 65 year old male admitted to [facility] on 03/24/21 for COVID-19, pneumonia w/ hypoxia, DKA P: Anticipate Lazaro will be discharged to his sister Melissa's home in [place] with no new services, when medically cleared by . He lives in [place]. Undetermined if patient will need home 02 at this time. He will follow up with his PCP and plan of care as prescribed and transport via private vehicle with family.
[2021-04-01] MEDS: Normal Saline Flush 10 ML SYR IVP (20:37)
[2021-04-01] MEDS: Protein Nutritional Supplement 16 GM 1 OUNCE PACKET PO (20:37)
[2021-04-01] MEDS: Psyllium PKT 1 EACH PO (20:37)
[2021-04-01] MEDS: Atorvastatin 40 MG TAB 80 MG PO (20:38)
[2021-04-01] MEDS: Insulin Glargine 300 UNITS/3 ML PEN SC (23:23)
[2021-04-01] MEDS: Melatonin 3 MG TAB PO (23:26)
[2021-04-02] VITALS (13 sets, daily range): BP systolic 107–141; BP diastolic 60–71; PULSE 52–80; RESP 16–26; TEMP 36.1–36.5; O2SAT 88–95
[2021-04-02 07:33] LABS: Abs Immature Grans 0.05 10^3/uL (0.0-0.06); Absolute Basophil Count 0.02 10^3/uL (0.0-0.2); Absolute Eosinophil Count 0.04 10^3/uL (0.0-0.7); Absolute Lymphocyte Count 1.22 10^3/uL (1.2-3.4); Absolute Monocyte Count 0.69 10^3/uL (0.1-0.8); Absolute Neutrophil Count 8.12 10^3/uL (1.2-6.7); Basophils % 0.2; Eosinophils % 0.4; HCT 35.4 % (40.0-50.0); HGB 11.8 g/dL (13.5-17.5); Immature Grans % 0.5; MCH 29.8 pg (27.0-33.0); MCHC 33.3 % (32.0-36.0); MCV 89.4 fL (80-95); MPV 10.2 fL (8.0-11.0); Monocytes % 6.8; Neutrophils % 80.1; Nucleated RBC 0 %; Platelet Count 437 10^3/uL (130-400); RBC 3.96 10^6/uL (4.36-5.78); RDW 12.6 % (11.8-14.1); RDW-SD 41.1 fL; WBC 10.14 10^3/uL (4.4-10.8)
[2021-04-02 07:54] LABS: ALT 16 U/L (16-63); AST 12 U/L (15-37); Albumin 1.7 g/dL (3.4-5.0); Alkaline Phosphatase 56 U/L (46-116); Anion Gap 6.8 mmol/L (3-11); BUN 25 mg/dL (7-18); Bilirubin, Direct 0.2 mg/dL (0.0-0.2); Bilirubin, Total 0.5 mg/dL (0.2-1.0); C-Reactive Protein 5.18 mg/dL (0.0-0.3); CO2 28.2 mmol/L (21.0-32.0); CREATININE 0.9 mg/dL (0.70-1.30); Calcium 8.2 mg/dL (8.5-10.1); Chloride 107 mmol/L (98-107); Glucose 200 mg/dL (74-106); Magnesium 1.9 mg/dL (1.8-2.4); Potassium 4.4 mmol/L (3.5-5.1); Sodium 142 mmol/L (136-145); Total Protein 5.5 g/dL (6.4-8.2)
[2021-04-02 08:07] LABS: D-Dimer 819 ng/mlFEU (<500)
[2021-04-02 08:09] LABS: Procalcitonin < 0.1 ng/mL
[2021-04-02 08:44] LABS: Ferritin 626 ng/mL (26-388)
[2021-04-02] MEDS: Potassium Chloride 20 MEQ TABCR PO (08:47)
[2021-04-02] MEDS: guaiFENesin 600 MG TABCR PO ×2 (08:47→20:32)
[2021-04-02] MEDS: Ascorbic Acid 500 MG TAB 1000 MG PO ×2 (08:47→20:32)
[2021-04-02] MEDS: Aspirin E.C. 81 MG TABEC PO (08:47)
[2021-04-02] MEDS: Cholecalciferol (Vitamin D3) 1,000 UNIT TAB 2000 UNITS PO (08:47)
[2021-04-02] MEDS: Dexamethasone 10 MG/ML VIAL 6 MG IVP (08:48)
[2021-04-02] MEDS: Famotidine 20 MG TAB PO ×2 (08:48→20:32)
[2021-04-02] MEDS: Normal Saline Flush 10 ML SYR IVP ×3 (08:48→20:33)
[2021-04-02] MEDS: Insulin NPH-Human 300 UNITS/3 ML PEN 12 UNIT SC (08:49)
[2021-04-02] MEDS: Insulin Aspart 300 UNITS/3 ML PEN SC ×7 (08:50→22:02)
[2021-04-02] MEDS: Ipratropium/Albuterol 4 GM 120 PUFF INH IH ×3 (10:32→20:32)
[2021-04-02] MEDS: Albuterol HFA 8 GM 60 PUFF INH IH (10:33)
[2021-04-02] MEDS: Enoxaparin 80 MG/0.8 ML SYR 70 MG SC ×2 (11:49→23:34)
--- NOTE | 2021-04-02 16:38 | W.PM.PROGNOT ---
Date of Service Date of service: 04/02/21 Time of Service: 16:39 Assessment and Plan Assessment and plan (1) Cerebrovascular accident (CVA) associated with severe acute respiratory syndrome coronavirus 2 (SARS-CoV-2) infection: Status: Acute Assessment and plan: Continue full dose lovenox + asa x 2 weeks, followed by asa alone. Echo reviewed: without significant abnormalities. LVEF 55-60%, no wall motion abnormalities, RV is mildly dilated, RV systolic function is normal. Consider an MRI on Sunday if O2 requirements improve. Continue PT/OT. Monitor neurochecks. (2) COVID-19: Status: Acute Assessment and plan: Complicated by CVA. Encephalopathy has resolved. Continue remdesivir, dexamethasone, baricitinib. Finish antibiotics. Encourage proning, IS, acapella. Provide vitamin supplementaion. Wean O2 as tolerated. CPAP tonight. (3) Encephalopathy acute: Status: Resolved Assessment and plan: Due to COVID-19, steroids, possibly also CVA. Resolved. (4) Respiratory failure with hypoxia: Status: Acute Assessment and plan: Due to COVID-19. As above. Qualifiers: Chronicity: acute Qualified Code(s): J96.01 - Acute respiratory failure with hypoxia (5) DKA (diabetic ketoacidosis): Status: Resolved Assessment and plan: A1C >14.00. Increase prandial coverage amd NPH insulin. Qualifiers: Diabetes mellitus type: type 2 Diabetes mellitus complication detail: without coma Qualified Code(s): E11.10 - Type 2 diabetes mellitus with ketoacidosis without coma (6) Newly diagnosed diabetes: Status: Acute Assessment and plan: Glucose readings of 173 and 264 today; adjust insulin. As above (7) DVT prophylaxis: Status: Acute Assessment and plan: On full dose lovenox. (8) Discharge planning issues: Status: Acute Assessment and plan: Full Code Continues to require hospitalization. Subjective Subjective Patient reports: no new complaints, tolerating a regular diet, shortness of breath and afebrile; denies diarrhea, nausea and vomiting Interval history since last seen: Improvement in movement/coordination of left hand. Exam Narrative Exam Narrative: General: Middle aged male who is much more upbeat and whose mentation is much clearer, on CPAP, comfortable, A&ox3 No dyspnea/tachypnea. L hand significantly less clumsy. He sees me to his left - Lsided neglect not appreciated today. HEENT: Wearing CPAP, EOMI. Cardiovascular: RRR, no m/r/g Lungs: quiet crackles at B bases. Speaks in complete sentences. Gastrointestinal: soft, nontender, nondistended Extremities: no edema BLE's, no lesions on B feet, 2+ pedal pulses B Neuro: LE strength equal bilateral. UE steam press operator strength equal bilateral. Psych: Affect normal. Speech is normal. Cognition normal. Objective Last Vital Signs Temp 36.1 C L 04/02/21 12:04 Pulse 64 04/02/21 14:48 Resp 20 04/02/21 13:49 BP 129/69 04/02/21 12:04 Pulse Ox 93 04/02/21 13:49 Laboratory Results - last 24 hr 04/02/21 04/02/21 04/02/21 07:15 07:15 07:15 WBC 10.14 RBC 3.96 L Hgb 11.8 L Hct 35.4 L MCV 89.4 MCH 29.8 MCHC 33.3 RDW 12.6 Plt Count 437 H MPV 10.2 Immature Gran % 0.5 Neutrophils % 80.1 Lymphocytes % 12.0 Monocytes % 6.8 Eosinophils % 0.4 Basophils % 0.2 Nucleated RBC % 0 Absolute Neutrophils 8.12 H Absolute Lymphocytes 1.22 Absolute Monocytes 0.69 Absolute Eosinophils 0.04 Absolute Basophils 0.02 D-Dimer Sodium 142 Potassium 4.4 Chloride 107 Carbon Dioxide 28.2 Anion Gap 6.8 BUN 25 H Creatinine 0.9 Estimated GFR/1.73 m2 >= 60.00 Glucose 200 H Calcium 8.2 L Magnesium 1.9 Ferritin 626 H Total Bilirubin 0.5 Conjugated Bilirubin 0.2 AST 12 L ALT 16 Alkaline Phosphatase 56 C-Reactive Protein 5.18 H Total Protein 5.5 L Albumin 1.7 L Procalcitonin < 0.1 04/02/21 07:15 WBC RBC Hgb Hct MCV MCH MCHC RDW Plt Count MPV Immature Gran % Neutrophils % Lymphocytes % Monocytes % Eosinophils % Basophils % Nucleated RBC % Absolute Neutrophils Absolute Lymphocytes Absolute Monocytes Absolute Eosinophils Absolute Basophils D-Dimer 819 H Sodium Potassium Chloride Carbon Dioxide Anion Gap BUN Creatinine Estimated GFR/1.73 m2 Glucose Calcium Magnesium Ferritin Total Bilirubin Conjugated Bilirubin AST ALT Alkaline Phosphatase C-Reactive Protein Total Protein Albumin Procalcitonin
--- NOTE | 2021-04-02 16:41 | RESPIRATORY ---
16:30 Pt has remained on CPAP throughout the day, with short breaks for meals/medications. Pt recommended to stay on CPAP 7 with PS 2 and 45% FiO2 throughout tonight. Pt had setback today after CPAP was removed last night approx. 1.5hrs after being initiated and placed on 3L nasal cannula throughout rest of night. Upon arrival to assess pt this morning, he was tachypneic with SpO2 90% on 6L. Pt requested to be placed on CPAP to reduce work of breathing. Pt requested to remain on CPAP throughout the day to ensure continued progress.
[2021-04-02] MEDS: Atorvastatin 40 MG TAB 80 MG PO (20:32)
[2021-04-02] MEDS: Protein Nutritional Supplement 16 GM 1 OUNCE PACKET PO (20:32)
[2021-04-02] MEDS: Psyllium PKT 1 EACH PO (20:33)
[2021-04-02] MEDS: Melatonin 3 MG TAB PO (22:02)
[2021-04-02] MEDS: Insulin Glargine 300 UNITS/3 ML PEN 15 UNITS SC (22:05)
[2021-04-03] VITALS (7 sets, daily range): BP systolic 114–122; BP diastolic 60–64; PULSE 56–73; RESP 18; TEMP 36–36.6; O2SAT 91–95
[2021-04-03] MEDS: Ipratropium/Albuterol 4 GM 120 PUFF INH IH ×4 (08:35→20:06)
[2021-04-03] MEDS: Dexamethasone 10 MG/ML VIAL 6 MG IVP (08:36)
[2021-04-03] MEDS: Famotidine 20 MG TAB PO ×2 (08:36→20:04)
[2021-04-03] MEDS: Cholecalciferol (Vitamin D3) 1,000 UNIT TAB 2000 UNITS PO (08:36)
[2021-04-03] MEDS: Ascorbic Acid 500 MG TAB 1000 MG PO ×2 (08:36→20:04)
[2021-04-03] MEDS: Aspirin E.C. 81 MG TABEC PO (08:36)
[2021-04-03] MEDS: Potassium Chloride 20 MEQ TABCR PO (08:37)
[2021-04-03] MEDS: Insulin NPH-Human 300 UNITS/3 ML PEN 14 UNIT SC (08:38)
[2021-04-03] MEDS: Insulin Aspart 300 UNITS/3 ML PEN SC ×6 (08:39→21:25)
[2021-04-03 09:36] LABS: C-Reactive Protein 2.77 mg/dL (0.0-0.3)
[2021-04-03 10:10] LABS: D-Dimer 1046 ng/mlFEU (<500)
[2021-04-03] MEDS: Enoxaparin 80 MG/0.8 ML SYR 70 MG SC ×2 (10:10→21:24)
--- NOTE | 2021-04-03 12:45 | PT.INTREAT ---
PT Notes Visit Reasons: COVID-19, pneumonia with hypoxia, DKA Inpatient Physical Therapy Treatment Note [facility] Date: 04/03/21 SUBJECTIVE: Lazaro states that he would like to go for a walk. He feels weakness in his left UE/ hand. OBJECTIVE: [] BED MOBILITY/TRANSFERS Supine-sit: S Sit-supine: S Sit-stand: S Stand-sit: S GAIT Assistive Device: FWW Weight bearing:full Assist: CGA Distance: 75' Deviation: cues for equal wt distribution, and to hold onto walker with left hand. Cues to make slower, more controlled mvmt THEREX:performed a limited LE strengthening routine. see flowsheet for details. ASSESSMENT:tolerated session well. Denies SOB although O2 sats dropped to 81%, he was able to recover to 91% with sitting rest x approx 7 min. Opted to with FWW vs SPC due to balance. He tends to list to the left. PLAN: continue to progress following PT POC. TREATMENT CODE/TIME: 20 min beginning at 1015. [id number]
--- NOTE | 2021-04-03 15:55 | W.PM.PROGNOT ---
Date of Service Date of service: 04/03/21 Time of Service: 15:56 Assessment and Plan Assessment and plan (1) Cerebrovascular accident (CVA) associated with severe acute respiratory syndrome coronavirus 2 (SARS-CoV-2) infection: Status: Acute Assessment and plan: Continue full dose lovenox + asa x 2 weeks, followed by asa alone. Echo reviewed: without significant abnormalities. LVEF 55-60%, no wall motion abnormalities, RV is mildly dilated, RV systolic function is normal. Consider an MRI on Sunday if O2 requirements improve. Continue PT/OT. Monitor neurochecks. (2) COVID-19: Status: Acute Assessment and plan: Complicated by CVA. Encephalopathy has resolved. Continue remdesivir, dexamethasone, baricitinib. Finish antibiotics. Encourage proning, IS, acapella. Provide vitamin supplementaion. Wean O2 as tolerated. CPAP tonight. (3) Encephalopathy acute: Status: Resolved Assessment and plan: Due to COVID-19, steroids, possibly also CVA. Resolved. (4) Respiratory failure with hypoxia: Status: Acute Assessment and plan: Due to COVID-19. As above. Qualifiers: Chronicity: acute Qualified Code(s): J96.01 - Acute respiratory failure with hypoxia (5) DKA (diabetic ketoacidosis): Status: Resolved Assessment and plan: A1C >14.00. Increase prandial coverage amd NPH insulin. Qualifiers: Diabetes mellitus type: type 2 Diabetes mellitus complication detail: without coma Qualified Code(s): E11.10 - Type 2 diabetes mellitus with ketoacidosis without coma (6) Newly diagnosed diabetes: Status: Acute Assessment and plan: Glucose readings of 173 and 264 today; adjust insulin. As above (7) DVT prophylaxis: Status: Acute Assessment and plan: On full dose lovenox. (8) Discharge planning issues: Status: Acute Assessment and plan: Full Code Continues to require hospitalization. Subjective Subjective Patient reports: no new complaints, feels better, tolerating a regular diet, shortness of breath (Improving) and afebrile; denies nausea and vomiting Exam Narrative Exam Narrative: General: Middle aged male who is much more upbeat and whose mentation is much clearer, on CPAP, comfortable, A&ox3 No dyspnea/tachypnea. L hand significantly less clumsy than at time of admission HEENT: NC in place. Sclera clear. Cardiovascular: RRR, no m/r/g Lungs: quiet crackles at B bases R>L. Speaks in complete sentences. Gastrointestinal: soft, nontender, nondistended Extremities: no edema BLE's, no lesions on B feet, 2+ pedal pulses B Neuro: LE strength equal bilateral. UE correctional therapy director strength equal bilateral. Psych: Affect normal. Speech is normal. Cognition normal. Objective Last Vital Signs Temp 36.6 C 04/03/21 15:40 Pulse 65 04/03/21 15:40 Resp 18 04/03/21 15:40 BP 114/62 04/03/21 15:40 Pulse Ox 94 04/03/21 15:40 Laboratory Results - last 24 hr 04/03/21 04/03/21 09:10 09:10 D-Dimer 1046 H C-Reactive Protein 2.77 H
[2021-04-03] MEDS: Atorvastatin 40 MG TAB 80 MG PO (20:04)
[2021-04-03] MEDS: Melatonin 3 MG TAB PO (21:24)
[2021-04-03] MEDS: Insulin Glargine 300 UNITS/3 ML PEN 15 UNITS SC (21:26)
[2021-04-04] VITALS (8 sets, daily range): BP systolic 117–125; BP diastolic 60–68; PULSE 60–86; RESP 18; TEMP 36–36.7; O2SAT 92–95
[2021-04-04 07:18] LABS: Abs Immature Grans 0.07 10^3/uL (0.0-0.06); Absolute Basophil Count 0.02 10^3/uL (0.0-0.2); Absolute Monocyte Count 0.72 10^3/uL (0.1-0.8); Basophils % 0.1; Eosinophils % 0.5; HCT 37.2 % (40.0-50.0); HGB 12.3 g/dL (13.5-17.5); Immature Grans % 0.5; Lymphocytes % 9.6; MCH 29.9 pg (27.0-33.0); MCHC 33.1 % (32.0-36.0); MCV 90.5 fL (80-95); MPV 10.1 fL (8.0-11.0); Monocytes % 4.8; Neutrophils % 84.5; Nucleated RBC 0 %; Platelet Count 473 10^3/uL (130-400); RBC 4.11 10^6/uL (4.36-5.78); RDW 12.7 % (11.8-14.1); RDW-SD 41.1 fL; WBC 15.03 10^3/uL (4.4-10.8)
[2021-04-04 07:30] LABS: ALT 30 U/L (16-63); AST 24 U/L (15-37); Albumin 1.8 g/dL (3.4-5.0); Alkaline Phosphatase 67 U/L (46-116); Anion Gap 6.2 mmol/L (3-11); BUN 29 mg/dL (7-18); Bilirubin, Total 0.4 mg/dL (0.2-1.0); C-Reactive Protein 1.87 mg/dL (0.0-0.3); CO2 29.8 mmol/L (21.0-32.0); CREATININE 0.8 mg/dL (0.70-1.30); Calcium 7.9 mg/dL (8.5-10.1); Chloride 105 mmol/L (98-107); Glucose 166 mg/dL (74-106); Potassium 4.3 mmol/L (3.5-5.1); Sodium 141 mmol/L (136-145); Total Protein 5.7 g/dL (6.4-8.2)
[2021-04-04 07:31] LABS: Absolute Eosinophil Count 0.08 10^3/uL (0.0-0.7); Absolute Lymphocyte Count 1.44 10^3/uL (1.2-3.4)
[2021-04-04 08:02] LABS: D-Dimer 1037 ng/mlFEU (<500)
[2021-04-04] MEDS: Cholecalciferol (Vitamin D3) 1,000 UNIT TAB 2000 UNITS PO (08:14)
[2021-04-04] MEDS: Potassium Chloride 20 MEQ TABCR PO (08:14)
[2021-04-04] MEDS: Ascorbic Acid 500 MG TAB 1000 MG PO ×2 (08:15→19:33)
[2021-04-04] MEDS: Aspirin E.C. 81 MG TABEC PO (08:15)
[2021-04-04] MEDS: Dexamethasone 10 MG/ML VIAL 6 MG IVP (08:15)
[2021-04-04] MEDS: guaiFENesin 600 MG TABCR PO (08:15)
[2021-04-04] MEDS: Famotidine 20 MG TAB PO ×2 (08:16→19:34)
[2021-04-04] MEDS: Insulin Aspart 300 UNITS/3 ML PEN SC ×7 (08:18→21:20)
[2021-04-04] MEDS: Insulin NPH-Human 300 UNITS/3 ML PEN 16 UNIT SC (08:32)
[2021-04-04] MEDS: Ipratropium/Albuterol 4 GM 120 PUFF INH IH ×4 (08:32→19:37)
[2021-04-04] MEDS: Enoxaparin 80 MG/0.8 ML SYR 70 MG SC ×2 (09:40→21:20)
--- NOTE | 2021-04-04 09:40 | OT.INTREAT ---
Date of service: 04/04/21 Time of Service: 09:00 Occupational Therapy Notes Occupational Therapy Inpatient Treatment Note Date: 04/04/21 PRECAUTIONS: Fall, standard, full SUBJECTIVE: Pt was sitting in the chair when OT arrived. He notes that he would like to strengthen his (L) UE and be able to use it more throughout his day. OBJECTIVE: PAIN:no c/o pain Strength- Shoulder flexion 4+/5 Bicep 5/5 Tricep 5/5 Marketing Liaison is strong and symmetrical Fine motor control of digit extension requires tactile cues and RF has no AROM into extension without the tactile cues Coordination exercises assessed with min vc pt is able to perform with obvious variation of nose to finger, hand to spot on the wall and picking up items on the (L) side. Gross motor control of (L) UE is good and fine motor is fair at this time. Overall pt has improved since initial evaluation but continues to progress. GROOMING: RN was shaving pts face when OT arrived. Pt did take the towel to wash his face and did a fair job at this. He overall has a general idea of where to place the towel but his functional use and activity tolerance of his (L) UE is limited. He does drop the towel after a couple tries. THEREX: OT educated and trained pt in strengthening program for (L) UE with pink foam cube and red theraband including shoulder flexion, bicep curls, ER of (L) UE and retraction of (B) UE. OT educated pt to perform 10x then rest at least 1x every hour. Pt is receptive to this. OT will progress as symptoms allow. ASSESSMENT/PLAN: Pt still has c/o of weakness in his (L) UE. He has been squeezing a small ball with minimal resistance in it which he is tolerating well however he notes that his arm still feels weak. OT assessed pts strength which has improved since initial evaluation. His coordination remains limited and he has a (L) visual impairment at this time. This is also contributing to his decreased coordination. He states that he has been using his (L) hand to throw stuff in the garbage. It does look like pt is also having a hard time getting the trash into the basket which can be caused by the visual and (L) UE impairment. Overall he is receptive to strengthening for his (L) UE. TREATMENT CODES/TIME: [id number], 25 minutes Maru Green, OTR/[facility]
--- NOTE | 2021-04-04 09:50 | PDOC.CMPRO ---
- If Service Date Differs Date of service: 04/04/21 Time of Service: 09:50 Care Management Progress Note S/O: CM met with Lazaro over the phone due to Covid precautions. Lazaro is anticipating being discharged to his sister Melissa's house in the next few days. He reported that the plan for tonight is to keep him off the CPAP machine to see how he does. Per MD his oxygen demands have improved. CM will continue to follow. A: Lazaro is a 65 year old male admitted to [facility] on 03/24/21 for COVID-19, pneumonia w/ hypoxia, DKA P: Anticipate Lazaro will be discharged to his sister Melissa's home in [place] with no new services, when medically cleared by . He lives in [place]. Undetermined if patient will need home 02 at this time. He will follow up with his PCP and plan of care as prescribed and transport via private vehicle with family.
--- NOTE | 2021-04-04 11:33 | PT.INTREAT ---
Date of service: 04/04/21 Time of Service: 11:33 PT Notes Visit Reasons: COVID-19, pneumonia with hypoxia, DKA Inpatient Physical Therapy Treatment Note [facility] Date: 04/04/21 SUBJECTIVE: Lazaro feels he is able to do more today. Plans to go home to his sister's house and stay there until after . Plans to go back home with (lives [id number]) after April. OBJECTIVE: Seated on chair. telemetry monitoring in place. On 3.5 L of oxygen per minute via NC. BED MOBILITY/TRANSFERS Supine-sit: Independent Sit-supine: Independent Sit-stand: Independent Stand-sit: Independent GAIT Assistive Device: No AD Weight bearing:full Assist: CGA Distance: 90' Deviation: Slowed antony. Swing-through gait pattern. Decreased arm swing on the L side. Mild SOB. No LOB. THEREX: Continued with standing level B LE exercises per flowsheet. ASSESSMENT: Strength improving in B UE. L UE coordination decreased. PLAN: Initiate progressive resistance exercises in order to facilitate functional mobility progression. TREATMENT CODE/TIME: 56052 x 15 minutes, 36385 x 14 minutes beginning at 11:33 AM.
--- NOTE | 2021-04-04 15:36 | W.PM.PROGNOT ---
Date of Service Date of service: 04/04/21 Time of Service: 15:36 Assessment and Plan Assessment and plan (1) Cerebrovascular accident (CVA) associated with severe acute respiratory syndrome coronavirus 2 (SARS-CoV-2) infection: Status: Acute Assessment and plan: Continue full dose lovenox + asa x 2 weeks, followed by asa alone. Echo reviewed: without significant abnormalities. LVEF 55-60%, no wall motion abnormalities, RV is mildly dilated, RV systolic function is normal. Consider an MRI on Sunday if O2 requirements improve. Continue PT/OT. Monitor neurochecks. (2) COVID-19: Status: Acute Assessment and plan: Complicated by CVA. Encephalopathy has resolved. Continue dexamethasone, baricitinib. Completed course of remdesivir Finished antibiotics. Encourage proning, IS, acapella. Provide vitamin supplementaion. Wean O2 as tolerated. CPAP tonight. (3) Encephalopathy acute: Status: Resolved Assessment and plan: Due to COVID-19, steroids, possibly also CVA. Resolved. (4) Respiratory failure with hypoxia: Status: Acute Assessment and plan: Due to COVID-19. As above. O2 demands improved. Now stable on 3L NC at rest. Planning on no CPAP tonight and then if supplemental O2 needs don't increase will perform exercise oxygen testing and possibly d/c. Qualifiers: Chronicity: acute Qualified Code(s): J96.01 - Acute respiratory failure with hypoxia (5) DKA (diabetic ketoacidosis): Status: Resolved Assessment and plan: A1C >14.00. Resolved. Qualifiers: Diabetes mellitus type: type 2 Diabetes mellitus complication detail: without coma Qualified Code(s): E11.10 - Type 2 diabetes mellitus with ketoacidosis without coma (6) Newly diagnosed diabetes: Status: Acute Assessment and plan: Glucose readings improving; adjust insulin as necessary. As above (7) DVT prophylaxis: Status: Acute Assessment and plan: On full dose lovenox. (8) Discharge planning issues: Status: Acute Assessment and plan: Full Code Continues to require hospitalization. Subjective Subjective Patient reports: no new complaints, feels better and tolerating a regular diet; denies nausea and vomiting Interval history since last seen: Walked in room w/o use of a walker today. Exam Narrative Exam Narrative: General: sitting in chair. NAD. Cooperative. HEENT: NC in place. Sclera clear. Cardiovascular: RRR, no m/r/g Lungs: quiet crackles at B bases R>L. Speaks in complete sentences. Gastrointestinal: soft, nontender, nondistended Extremities: no edema BLE's, no lesions on B feet, 2+ pedal pulses B Neuro: LE strength equal bilateral. UE associate professor of library media strength equal bilateral. Psych: Affect normal. Speech is normal. Cognition normal. Objective Last Vital Signs Temp 36.7 C 04/04/21 14:18 Pulse 68 04/04/21 15:16 Resp 18 04/04/21 14:18 BP 117/60 04/04/21 14:18 Pulse Ox 92 04/04/21 14:18 Laboratory Results - last 24 hr 04/04/21 04/04/21 04/04/21 07:00 07:00 07:00 WBC 15.03 H RBC 4.11 L Hgb 12.3 L Hct 37.2 L MCV 90.5 MCH 29.9 MCHC 33.1 RDW 12.7 Plt Count 473 H MPV 10.1 Immature Gran % 0.5 Neutrophils % 84.5 Lymphocytes % 9.6 Monocytes % 4.8 Eosinophils % 0.5 Basophils % 0.1 Nucleated RBC % 0 Absolute Neutrophils 12.70 H Absolute Lymphocytes 1.44 Absolute Monocytes 0.72 Absolute Eosinophils 0.08 Absolute Basophils 0.02 D-Dimer 1037 H Sodium 141 Potassium 4.3 Chloride 105 Carbon Dioxide 29.8 Anion Gap 6.2 BUN 29 H Creatinine 0.8 Estimated GFR/1.73 m2 >= 60.00 Glucose 166 H Calcium 7.9 L Total Bilirubin 0.4 AST 24 ALT 30 Alkaline Phosphatase 67 C-Reactive Protein 1.87 H Total Protein 5.7 L Albumin 1.8 L
[2021-04-04] MEDS: Atorvastatin 40 MG TAB 80 MG PO (19:34)
[2021-04-04] MEDS: Normal Saline Flush 10 ML SYR IVP (19:36)
[2021-04-04] MEDS: Melatonin 3 MG TAB PO (21:19)
[2021-04-04] MEDS: Insulin Glargine 300 UNITS/3 ML PEN 15 UNITS SC (21:20)
[2021-04-05] VITALS (11 sets, daily range): BP systolic 118–150; BP diastolic 68–76; PULSE 66–111; RESP 17–81; TEMP 35.4–36.5; O2SAT 76–95
[2021-04-05 07:43] LABS: C-Reactive Protein 1.05 mg/dL (0.0-0.3)
[2021-04-05] MEDS: Ipratropium/Albuterol 4 GM 120 PUFF INH IH ×4 (08:09→17:29)
--- NOTE | 2021-04-05 08:12 | OTTR_ITS ---
Date of service: 04/05/21 Time of Service: 07:25 Occupational Therapy Notes Occupational Therapy Inpatient Treatment Note Date: 04/05/21 PRECAUTIONS: Fall, Covid-19 precautions, full SUBJECTIVE: Pt was sitting in the chair when OT arrived. He was agreeable to OT session and notes that he is ready for breakfast this morning. He states that he has been sleeping in the chair because he can tolerate his CPAP better in the sitting position. He reports that he may go home today, he has letters from his grandson which he is ready to read. He states that his two grandchildren live with them and that he misses his . OBJECTIVE: PAIN:no c/o pain FUNCTIONAL MOBILITY Sit-stand: SBA Stand-sit: SBA BATHING: sitting in chair with max (A) Set up/clean up Upper Body: (I) UE, max (A) hair, max (A) back Lower Body: (I) (B) LE, pt denies deyvi area reporting that he tries to wash when he goes to the bathroom. DRESSING: sitting in chair with min vc throughout Upper Extremity: Min (A) don and doffing shirt and button up shirt due to lack of coordination in (L) UE and getting arm into the hole of his shirt Lower Extremity: (I) don and doffing (B) socks, pt was able to perform his underwear and pants with min (A) more for balance at this time with FWW for stabilization as needed. GROOMING: Sitting in chair min vc for brushing hair but able to perform (I) with both his (B) UE ASSESSMENT/PLAN: Pt is receptive to his ADLs, he can perform his ADLs with increased (I) however his coordination continues to impact his dressing and bathing routines. He is able to perform them however he drops the wash cloth throughout bathing routine without realizing it. He requires vc throughout and he continues to have some visual deficits. Overall he is improving, he is making gains in terms of his strengthening in his (L) UE and he is compliant with his exercises throughout the day. Recommendations- Outpatient care for pts (L) UE for improved coordination and strengthening. TREATMENT CODES/TIME: [id number], 45 minutes (07:25) Maru Green OTR/[facility]
[2021-04-05 08:14] LABS: D-Dimer 1022 ng/mlFEU (<500)
[2021-04-05] MEDS: Ascorbic Acid 500 MG TAB 1000 MG PO ×2 (09:16→20:30)
[2021-04-05] MEDS: Famotidine 20 MG TAB PO ×2 (09:16→20:31)
[2021-04-05] MEDS: Potassium Chloride 20 MEQ TABCR PO (09:16)
[2021-04-05] MEDS: Aspirin E.C. 81 MG TABEC PO (09:16)
[2021-04-05] MEDS: Cholecalciferol (Vitamin D3) 1,000 UNIT TAB 2000 UNITS PO (09:16)
[2021-04-05] MEDS: Normal Saline Flush 10 ML SYR IVP (09:17)
[2021-04-05] MEDS: Insulin NPH-Human 300 UNITS/3 ML PEN 16 UNIT SC (09:18)
[2021-04-05] MEDS: Insulin Aspart 300 UNITS/3 ML PEN SC ×3 (09:20→17:30)
[2021-04-05] MEDS: Enoxaparin 80 MG/0.8 ML SYR 70 MG SC ×2 (09:36→23:29)
--- NOTE | 2021-04-05 10:12 | PT.INTREAT ---
Date of service: 04/05/21 Time of Service: 10:12 PT Notes Visit Reasons: COVID-19, pneumonia with hypoxia, DKA Inpatient Physical Therapy Treatment Note [facility] Date: 04/05/21 SUBJECTIVE: Sad about how his oxygen level did not go well enough during today's walking activity that he could not go home. Stated three times how having a breathe right strip may allow him to improve his oxygen saturation as he has a broken nose during exercise. Agreeable to initiating progressive strengthening exercises for this session. States he feels having more difficulty getting air in udring inhalation. OBJECTIVE: Seated on chair. Telemetry monitoring in place. On 3.5 L of oxygen per minute via NC at rest. RT Vinnie with PT for gait oximetry. BED MOBILITY/TRANSFERS Supine-sit: Independent Sit-supine: Independent Sit-stand: Independent Stand-sit: Independent GAIT Assistive Device: No AD Weight bearing: Full Assist: SBA Distance: 60' Deviation: Slowed antony. Swing-through gait pattern. Decreased arm swing on the L side. Mild SOB. No LOB. Desaturated to the mid 70s on room and required 6 L of oxygen per minute to recover. THEREX: Initiated strengthening exercises while seated to minimize desaturation episode. Please refer to flowsheet for exercise details. ASSESSMENT: Registration Representative on L UE decreased resulting to dumbbell on the L falling off to the floor twice. Did not pass today's gait oximetry requiring 6 L of oxygen per minutes to recover. PLAN: Continue with progressive resistance exercises in order to facilitate functional mobility progression. TREATMENT CODE/TIME: 52801 x 18 minutes, 42610 x 15 minutes beginning at 10:12 AM.
--- NOTE | 2021-04-05 16:26 | W.PM.PROGNOT ---
Date of Service Date of service: 04/05/21 Time of Service: 16:28 Assessment and Plan Assessment and plan (1) Cerebrovascular accident (CVA) associated with severe acute respiratory syndrome coronavirus 2 (SARS-CoV-2) infection: Status: Acute Assessment and plan: Continue full dose lovenox + asa x 2 weeks, followed by asa alone. Echo reviewed: without significant abnormalities. LVEF 55-60%, no wall motion abnormalities, RV is mildly dilated, RV systolic function is normal. Continue PT/OT. Monitor neurochecks. Left hand clumsiness conts to improve. No other deficits. (2) COVID-19: Status: Acute Assessment and plan: Complicated by CVA. Encephalopathy has resolved. Continue dexamethasone, baricitinib. Completed course of remdesivir Finished antibiotics. At rest; stable on 3L NC Desaturation to 76% on 3L NC with ambulation. Provide vitamin supplementaion. Wean O2 as tolerated. No CPAP last PM or tonight. (3) Encephalopathy acute: Status: Resolved Assessment and plan: Due to COVID-19, steroids, possibly also CVA. Resolved. (4) Respiratory failure with hypoxia: Status: Acute Assessment and plan: Due to COVID-19. As above. O2 demands improved. Now stable on 3L NC at rest. Planning on no CPAP tonight and then if supplemental O2 needs don't increase will perform exercise oxygen testing and possibly d/c. Qualifiers: Chronicity: acute Qualified Code(s): J96.01 - Acute respiratory failure with hypoxia (5) DKA (diabetic ketoacidosis): Status: Resolved Assessment and plan: A1C >14.00. Resolved. Qualifiers: Diabetes mellitus type: type 2 Diabetes mellitus complication detail: without coma Qualified Code(s): E11.10 - Type 2 diabetes mellitus with ketoacidosis without coma (6) Newly diagnosed diabetes: Status: Acute Assessment and plan: Glucose readings improving; adjust insulin as necessary. As above (7) DVT prophylaxis: Status: Acute Assessment and plan: On full dose lovenox. (8) Discharge planning issues: Status: Acute Assessment and plan: Full Code Continues to require hospitalization but moving toward d/c when O2 demands with ambulation can be met with no more than 4L NC. Subjective Subjective Patient reports: no new complaints, feels better, tolerating a regular diet and afebrile; denies nausea and vomiting Exam Narrative Exam Narrative: VS: On 3L NC maintains O2 saturations in the low to mid 90's. Desaturation to 76% with ambulation. No SOA/CP. Const General: cooperative and no acute distress Resp Effort & Inspection: normal respiratory effort Auscultation: clear to auscultation bilaterally Cardio Rate: regular rate Rhythm: regular rhythm Objective Last Vital Signs Temp 36 C L 04/05/21 04:29 Pulse 79 04/05/21 15:43 Resp 18 04/05/21 04:29 BP 121/73 04/05/21 04:29 Pulse Ox 95 04/05/21 11:55 Laboratory Results - last 24 hr 04/05/21 04/05/21 07:10 07:10 D-Dimer 1022 H C-Reactive Protein 1.05 H
--- NOTE | 2021-04-05 17:21 | CMPROGNOTE_ITS ---
- If Service Date Differs Date of service: 04/05/21 Time of Service: 17:21 Care Management Progress Note S/O: CM met with Lazaro over the phone due to his covid precautions. He is disappointed his oxygen demand during activity earlier today prevented him from being discharged. He is able to ambulate independently and is hopeful his respiratory status will improve. He has a phone at his bedside and is able to communicate with family. CM will continue to support discharge needs. A: Lazaro is a 65 year old male admitted to [facility] on 03/24/21 for COVID-19, pneumonia w/ hypoxia, DKA P: Anticipate Lazaro will be discharged to his sister Melissa's home in [place] with no new services, when medically cleared by . He lives in [place]. Undetermined if patient will need home 02 at this time. He will follow up with his PCP and plan of care as prescribed and transport via private vehicle with family.
[2021-04-05] MEDS: Atorvastatin 40 MG TAB 80 MG PO (20:30)
[2021-04-05] MEDS: guaiFENesin 600 MG TABCR PO (20:30)
[2021-04-05] MEDS: Insulin Glargine 300 UNITS/3 ML PEN 10 UNITS SC (23:31)
[2021-04-06 06:50] VITALS: PULSE 72
[2021-04-06 07:40] LABS: C-Reactive Protein 1.41 mg/dL (0.0-0.3)
[2021-04-06 08:00] LABS: D-Dimer 1450 ng/mlFEU (<500)
[2021-04-06] MEDS: Famotidine 20 MG TAB PO ×2 (08:24→21:11)
[2021-04-06] MEDS: Aspirin E.C. 81 MG TABEC PO (08:24)
[2021-04-06] MEDS: Cholecalciferol (Vitamin D3) 1,000 UNIT TAB 2000 UNITS PO (08:24)
[2021-04-06] MEDS: Ascorbic Acid 500 MG TAB 1000 MG PO ×2 (08:24→21:11)
[2021-04-06] MEDS: Potassium Chloride 20 MEQ TABCR PO (08:25)
[2021-04-06] MEDS: Insulin NPH-Human 300 UNITS/3 ML PEN 16 UNIT SC (08:25)
[2021-04-06] MEDS: Insulin Aspart 300 UNITS/3 ML PEN SC ×6 (08:28→23:33)
[2021-04-06 08:30] VITALS: BP 171/66; PULSE 73; RESP 18; TEMP 36.2; O2SAT 92; O2SAT 94
[2021-04-06] MEDS: predniSONE 20 MG TAB 40 MG PO (09:39)
[2021-04-06] MEDS: Enoxaparin 80 MG/0.8 ML SYR 70 MG SC ×2 (09:40→23:33)
[2021-04-06] MEDS: Ipratropium/Albuterol 4 GM 120 PUFF INH IH ×4 (09:42→21:12)
--- NOTE | 2021-04-06 09:55 | DI.RAD_ITS ---
Exam(s) XR PORTABLE CHEST AP EXAM: XR PORTABLE CHEST AP CLINICAL HISTORY: Covid, increased WBC count TECHNIQUE: 2D digital imaging was performed of the chest. One image was obtained. An AP view was ob tained. COMPARISON: CR XR CHEST 2V PA LATERAL from 03/30/2021 CR XR CHEST 2V PA LATERAL from 03/30/2021 FINDINGS: MEDIASTINUM: Normal. HEART: Normal. PULMONARY VASCULATURE: Normal. LUNGS: Worsening pulmonary infiltrates are seen bilaterally. PLEURAL SPACE: There are findings suggestive of a right pleural effusion. No left pleural effusion o r pneumothorax is identified. BONE:Within normal limits for the patient's age. OTHER FINDINGS:Normal. IMPRESSION: Worsening bilateral pulmonary infiltrates since 03/30/2021. DATA REPOSITORY: RADIATION DOSE DELIVERED:
--- NOTE | 2021-04-06 10:58 | CMPROGNOTE_ITS ---
- If Service Date Differs Date of service: 04/06/21 Time of Service: 17:36 Care Management Progress Note S/O: Per Liseth TILTROTOR CREW CHIEF: Lazaro performed well during PT session this morning. She stated he ambulated 50-60 ft and sustained sats in the 90s. She did note he dropped to the 80s with exercises. Lazaro is making gains toward discharge, he is able to ambulate independently and continues to be closely monitored. He has a phone at his bedside and is able to communicate with family. CM will continue to support discharge needs. A: Lazaro is a 65 year old male admitted to [facility] on 03/24/21 for COVID-19, pneumonia w/ hypoxia, DKA P: Anticipate Lazaro will be discharged to his sister Melissa's home in [place] with new home O2, diabetic education and orders for VNA RN/PT/OT, when medically cleared by . He lives in [place] and his home health orders will be followed by Dr. Gomez post discharge, until he returns to [place]. He will transport via private vehicle with family.
--- NOTE | 2021-04-06 14:07 | DSE_ITS ---
Date of service: 04/07/21 Time of Service: 09:53 DS: Diagnosis Discharge Diagnosis (1) Cerebrovascular accident (CVA) associated with severe acute respiratory syndrome coronavirus 2 (SARS-CoV-2) infection: Status: Acute (2) COVID-19: Status: Acute (3) Encephalopathy acute: Status: Resolved (4) Respiratory failure with hypoxia: Status: Acute (5) DKA (diabetic ketoacidosis): Status: Resolved (6) Newly diagnosed diabetes: Status: Acute (7) DVT prophylaxis: Status: Acute (8) Discharge planning issues: Status: Acute Discharge Plan Disposition Patient Disposition: HOME W/HOME HEALTH SERVICE Condition: Serious Discharge Details Reason For Visit: COVID-19, pneumonia with hypoxia, DKA Admit Date/Time: 03/24/21 13:31 Admit Provider: Shaina Michaels Attending Provider: Shaina Michaels [facility]: Schedule an appt with the PCP on-call the day of his admission. He will then f/u with his PCP in [place] when he returns there. Home Meds and New Rx's Prescriptions: New aspirin 81 mg Tablet,Delayed Release (Dr/Ec) 81 mg PO DAILY Qty: 0 RF: 0 ascorbic acid (vitamin C) [Vitamin C] 500 mg Tablet 1,000 mg PO BID Qty: 0 RF: 0 cholecalciferol (vitamin D3) 25 mcg (1,000 unit) Tablet 2,000 units PO DAILY Qty: 0 RF: 0 atorvastatin 80 mg tablet 80 mg PO QHS Qty: 30 RF: 0 prednisone 10 mg tablet See Rx Instructions .ROUTE .COMPLEX Qty: 28 RF: 0 Lantus Solostar U-100 Insulin 100 unit/mL (3 mL) Insulin Pen 15 unit subcut HS Qty: 3 RF: 1 prednisone 10 mg tablet See Rx Instructions .ROUTE .COMPLEX Qty: 20 RF: 0 insulin aspart U-100 [Novolog PenFill U-100 Insulin] 100 unit/mL cartridge See Rx Instructions .ROUTE .COMPLEX Qty: 3 RF: 1 Discharge Instructions Instructions: How To Wash Your Hands (DC), COVID-19 (Coronavirus Disease 2019) (DC), Face Coverings (Masks) and COVID-19 (DC) Stand Alone Forms: Nursing Discharge Form Referrals: Donovan Munoz, [facility] [NURSE PRACTITIONER] - 10/28/21 11:00 am (Can set up PCP at appt.) Activity:: Activity as Tolerated Equipment/Supplies:: Insulin and needles Diet:: diabetic diet Discharge Orders Discharge Orders: Discharge Order (Routine); Ordered 04/08/21 Ordered By: Herbert Lozano DS: Summary Time Spent with Patient providing and/or coordinating discharge services: Greater than 30 minutes Status at Discharge Functional status at discharge: independent ambulation Overall status at discharge: patient is progressing back to baseline Mental Status: mental status grossly normal Speech and Movement: speech clear and other (decreased L arm swing with walking.) Mood: congruent mood Affect: normal affect Exam Narrative Exam Narrative: VS: On 3L NC maintains O2 saturations in the low to mid 90's. Desaturation to 76% with ambulation. No SOA/CP. Const General: cooperative and no acute distress Resp Effort & Inspection: normal respiratory effort Auscultation: clear to auscultation bilaterally Cardio Rate: regular rate Rhythm: regular rhythm GI Palpation: soft and nontender Neuro General: moves all extremities Cognition: normal cognition Speech: speech normal Gait: normal gait Motor: strength abnormal (L machine packer strength 3-4/5.) Extrem General: no pedal edema and no calf tenderness Psych Mental Status: mental status grossly normal Speech and Movement: speech clear Mood: congruent mood Affect: normal affect DS: Data Vitals/I&O Vitals and I&O: Vital Signs Temperature 36.5 C 04/05/21 23:40 Temperature Source Tympanic 04/05/21 23:40 Pulse 72 04/06/21 06:50 Pulse Rhythm Regular 04/06/21 08:00 Pulse 69 03/29/21 21:30 Respiratory Rate 22 04/05/21 23:40 Respiratory Effort Non-Labored 04/06/21 08:00 Respiratory Depth Normal 04/06/21 08:00 Respiratory Pattern Normal 04/06/21 08:00 Blood Pressure 131/68 04/05/21 23:40 Blood Pressure Mean 73 03/28/21 20:00 Blood Pressure Position Right Lateral 03/26/21 07:30 Pulse Oximetry 94 04/06/21 08:30 Oxygen Delivery Method Nasal Cannula 04/06/21 08:30 Oxygen Flow Rate 4 04/06/21 08:30 Fraction of Inspired Oxygen (FIO2) 45 04/03/21 18:00 Pain Level 0 10/19/21 23:40 Comment 04/02/21 10:29 Intake & Output 04/05/21 04/06/21 04/06/21 23:59 11:59 23:59 Intake Total 200 / 400 200 / 200 Output Total 200 / 200 Balance 0 / 200 200 / 200 Intake: Oral 200 / 400 200 / 200 Output: Urine 200 / 200 Other: Urine Color Yellow Urine Appearance Clear Clear Comment Patient is independent to the bathroom. Stating he is not having any difficulties voiding. Voiding Methods Toilet Bedside Commode Data Completed and Pending Labs on day of discharge: Labs from last 24 hours 04/06/21 04/06/21 07:10 07:10 D-Dimer 1450 H C-Reactive Protein 1.41 H PFSH Medical History Prediabetes Family History Father Heart disease Paternal Aunt Stroke Mother Diabetes Cancer lymphoma Social History Smoking/Tobacco Use Status: Former Tobacco Use Tobacco: How many years used: 40 Smoking risk assessment performed?: Yes Do you feel safe at home: Yes Do you feel safe in your relationship?: Yes
--- NOTE | 2021-04-06 14:49 | PT.INTREAT ---
Date of service: 04/06/21 Time of Service: 10:29 PT Notes Visit Reasons: COVID-19, pneumonia with hypoxia, DKA Inpatient Physical Therapy Treatment Note [facility] Date: 04/06/2021 PRECAUTIONS: COVID-19 SUBJECTIVE: Lazaro is pleasant and agreeable to participating in PT. He states that he is feeling good today, and that he hopes to be able to go home soon. He reports that he has been ambulating and transferring independently within his room, and feels safe doing so. OBJECTIVE: PAIN: No complaints of pain BED MOBILITY/TRANSFERS Rolling L/R: I Supine-sit: I Sit-supine: I Sit-stand: I Stand-sit: I Bed-Chair: I Chair-bed: I GAIT Assistive Device: No AD Weight bearing: Full Assist: S Distance: 60' Deviation: No shortness of breath reported VITALS: SaO2 with gait trainin-92% on RA SaO2 with ther ex: 84-90% on RA?4L O2 via NC THEREX: Patient was instructed in a standing lower extremity strengthening program, as per flow sheet. He requires bilateral upper extremity support for balance, as well as seated rests between exercises due to mild SOB and desaturating. ASSESSMENT: Patient tolerated session with minimal complaints of SOB with ther ex completion. He was able to tolerate gait training without use of assistive device on room air, desaturating to 88%. PLAN: Continue with general conditioning and global strengthening for improved activity tolerance and mobility. TREATMENT CODE/TIME: 24 minutes; 88707, [id number] (10:29)
--- NOTE | 2021-04-06 14:51 | W.PM.PROGNOT ---
Date of Service Date of service: 04/06/21 Time of Service: 14:51 Assessment and Plan Assessment and plan (1) Cerebrovascular accident (CVA) associated with severe acute respiratory syndrome coronavirus 2 (SARS-CoV-2) infection: Status: Acute Assessment and plan: Continue full dose lovenox + asa x 2 weeks, followed by asa alone. Echo reviewed: without significant abnormalities. LVEF 55-60%, no wall motion abnormalities, RV is mildly dilated, RV systolic function is normal. Continue PT/OT. Monitor neurochecks. Left hand clumsiness conts to improve. No other deficits. (2) COVID-19: Status: Acute Assessment and plan: Complicated by CVA. Encephalopathy has resolved. Continue steroid; changed to prednsisone with plan to taper off as outpt. Completed course of remdesivir Finished antibiotics. Today has remained stable on 1L supplemental O2 per NC; low 90's RA at rest, 88% RA with ambulation. Planning to d/c on 1L supplemental O2 tomorrow unless oxygen needs continue to improve and no supplemental O2 needed at that time. Provide vitamin supplementaion. No CPAP last PM or tonight. (3) Encephalopathy acute: Status: Resolved Assessment and plan: Due to COVID-19, steroids, possibly also CVA. Resolved. (4) Respiratory failure with hypoxia: Status: Acute Assessment and plan: Due to COVID-19. Supplemental O2 demans as above. Qualifiers: Chronicity: acute Qualified Code(s): J96.01 - Acute respiratory failure with hypoxia (5) DKA (diabetic ketoacidosis): Status: Resolved Assessment and plan: A1C >14.00. Resolved. Qualifiers: Diabetes mellitus type: type 2 Diabetes mellitus complication detail: without coma Qualified Code(s): E11.10 - Type 2 diabetes mellitus with ketoacidosis without coma (6) Newly diagnosed diabetes: Status: Acute Assessment and plan: Glucose readings improving; adjust insulin as necessary. Diabetic education and management of insulin administration education pending. Planning to d/c tomorrow. (7) DVT prophylaxis: Status: Acute Assessment and plan: On full dose lovenox. (8) Discharge planning issues: Status: Acute Assessment and plan: Full Code D/C planned for tomorrow. Subjective Subjective Patient reports: no new complaints, feels better, shortness of breath (with ambulation.) and afebrile; denies nausea and vomiting Exam Narrative Exam Narrative: VS: On 3L NC maintains O2 saturations in the low to mid 90's. Desaturation to 76% with ambulation. No SOA/CP. Const General: cooperative and no acute distress Resp Effort & Inspection: normal respiratory effort Auscultation: clear to auscultation bilaterally Cardio Rate: regular rate Rhythm: regular rhythm GI Palpation: soft and nontender Neuro General: moves all extremities Cognition: normal cognition Speech: speech normal Gait: normal gait Motor: strength abnormal (L vacuum cleaner repairer strength 3-4/5.) Extrem General: no pedal edema and no calf tenderness Psych Mental Status: mental status grossly normal Speech and Movement: speech clear Mood: congruent mood Affect: elated Objective Last Vital Signs Temp 36.5 C 04/05/21 23:40 Pulse 72 04/06/21 06:50 Resp 22 04/05/21 23:40 BP 131/68 04/05/21 23:40 Pulse Ox 94 04/06/21 08:30 Laboratory Results - last 24 hr 04/06/21 04/06/21 07:10 07:10 D-Dimer 1450 H C-Reactive Protein 1.41 H
[2021-04-06 16:27] VITALS: PULSE 86
[2021-04-06 21:00] VITALS: BP 136/70; PULSE 68; RESP 20; TEMP 36.6; O2SAT 92
[2021-04-06] MEDS: Atorvastatin 40 MG TAB 80 MG PO (21:11)
[2021-04-06] MEDS: Melatonin 3 MG TAB PO (23:33)
[2021-04-06] MEDS: Insulin Glargine 300 UNITS/3 ML PEN 10 UNITS SC (23:33)
[2021-04-06 23:41] VITALS: PULSE 67
[2021-04-07 07:00] VITALS: PULSE 61
[2021-04-07 07:50] LABS: HGB 12.2 g/dL (13.5-17.5); MCH 29.7 pg (27.0-33.0); MPV 10.3 fL (8.0-11.0); Platelet Count 431 10^3/uL (130-400); RBC 4.11 10^6/uL (4.36-5.78); RDW 12.6 % (11.8-14.1); RDW-SD 40.4 fL; WBC 9.36 10^3/uL (4.4-10.8)
[2021-04-07] MEDS: Aspirin E.C. 81 MG TABEC PO (08:08)
[2021-04-07] MEDS: Cholecalciferol (Vitamin D3) 1,000 UNIT TAB 2000 UNITS PO (08:09)
[2021-04-07] MEDS: Ascorbic Acid 500 MG TAB 1000 MG PO ×2 (08:09→20:00)
[2021-04-07] MEDS: predniSONE 20 MG TAB 40 MG PO (08:09)
[2021-04-07] MEDS: Famotidine 20 MG TAB PO ×2 (08:09→20:01)
[2021-04-07] MEDS: Potassium Chloride 20 MEQ TABCR PO (08:09)
[2021-04-07] MEDS: Insulin NPH-Human 300 UNITS/3 ML PEN 16 UNIT SC (08:10)
[2021-04-07] MEDS: Insulin Aspart 300 UNITS/3 ML PEN SC ×6 (08:19→21:17)
--- NOTE | 2021-04-07 08:25 | OT.INTREAT ---
Date of service: 04/07/21 Time of Service: 10:00 Occupational Therapy Notes Occupational Therapy Inpatient Treatment Note Date: 04/07/21 PRECAUTIONS: Fall, Covid-19 precautions, full SUBJECTIVE: Pt was sitting in bed when OT arrived. He is agreeable to OT Session and notes that he wants to go home. OBJECTIVE: PAIN:no c/o pain FUNCTIONAL MOBILITY Sit-stand: (I) Stand-sit: (I) BATHING: pt denies and states that there is no need to get washed if he is not going home. DRESSING: sitting in chair with min vc throughout Upper Extremity: (I) don and doffing shirt Lower Extremity: (I) don and doffing (B) socks, pt was able to perform his underwear and pants with (I) GROOMING: Sitting in chair min vc for brushing hair but able to perform (I) with both his (B) UE ASSESSMENT/PLAN: Pt is discouraged about where he is with his care at this time. He states that he wants to go home and is frustrated that he is not getting the answers he would like. His (R) UE is improving he has better coordination, although not baseline. His strength is improving and he functionally is tolerating his ADLs well. TREATMENT CODES/TIME: [id number], 30 minutes (08:25) Maru Green OTR/[facility]
[2021-04-07] MEDS: Ipratropium/Albuterol 4 GM 120 PUFF INH IH ×4 (09:05→20:02)
[2021-04-07 09:18] VITALS: PULSE 77; PULSE 79; PULSE 88; RESP 16; RESP 20; O2SAT 84; O2SAT 89; O2SAT 90
[2021-04-07] MEDS: Enoxaparin 80 MG/0.8 ML SYR 70 MG SC ×2 (10:28→21:37)
[2021-04-07 10:37] VITALS: BP 118/64; PULSE 74; RESP 18; TEMP 36.7; O2SAT 93
--- NOTE | 2021-04-07 13:09 | PDOC.HHF2F ---
Home Health Certification Home Health Certification: 1. Encounter Date and Reason I certify that Lazaro Sarah was seen by Herbert Lozano MD on 04/07/21 and that I had a [id number] encounter with this patient that meets the physician face to face encounter requirements. 2. Clinical Findings Supporting Skilled Need and Homebound Status I certify that home health services are medically necessary, include either intermittent long term and/or physical/speech therapy, and that this patient is homebound in that absences from the home require considerable and taxing effort and are infrequent or of short duration, or are attributable to the need to receive medical care. [X] (a) Attached documentation from encounter provides clinical findings supporting skilled need and homebound status (including what assistance patient requires to leave the home). The encounter with the patient was in whole, or in part, for the following medical condition, which is the primary reason for home health care: COVID-19, pneumonia with hypoxia, DKA Prison:Medication monitoring; initiated basal/bolus insulin during this admission. Prednisone taper ordered. Monitor respiratory status; COVID-19 pneumonia. Physical Therapy: Eval and treat for generalized weakness d/t prolonged (14 day) hospitalization. Speech Therapy: Homebound: Requires standby assistance of another person when outside of the home d/t generalized weakness. 3. Certification and Authentication I certify that I composed the above information based on my clinical judgement relating to this patient's medical condition and, if applicable, clinical findings communicated to me by the NPP or inpatient physician who performed the Home Health Referral. All further orders will be obtained through Jun Guevara MD (Community Based Physician - PCP)
--- NOTE | 2021-04-07 13:23 | W.DIABETESNO ---
Date of service: 04/07/21 Time of Service: 13:23 Diabetes Note NOTE: Order for diabetes instruction received for newly dx diabetic requiring insulin. Unable to meet with Lazaro today due to covid 19 precautions. Provided nursing with diabetes/diet information/ insulin injection technique packet with my contact information and a Dexcom 6 continuous glucose monitor as sample. Will call Lazaro at home tomorrow s/p discharge and arrange for outpatient/telehealth appointment for further instruction. Time Spent in Nutritional Counseling and Treatment: 0
[2021-04-07 15:00] VITALS: PULSE 96
--- NOTE | 2021-04-07 18:03 | PDOC.CMPRO ---
- If Service Date Differs Date of service: 04/07/21 Time of Service: 18:03 Care Management Progress Note S/O: MINGO spoke with Lazaro over the phone today due to covid precautions. He is hopeful to be discharged tomorrow morning and is delighted [facility] is able to deliver his O2 supplies to [facility]. [facility] would like to know if Lazaro is still contagious? MINGO will discuss with the provider in the morning. A: Lazaro is a 65 year old male admitted to [facility] on 03/24/21 for COVID-19, pneumonia w/ hypoxia, DKA P: Anticipate Lazaro will be discharged to [facility]'s [place] in [place] tomorrow with New SN/PT/Speech therapy. CM notified [facility]. He lives in [place]. Lazaro will need home 02 which is will be arriving at [facility] around 8pm per Shira. MINGO notified Melissa. Lazaro will follow up with a local provider (arranged by MINGO) and plan of care as prescribed and transport via private vehicle with family.
[2021-04-07] MEDS: Atorvastatin 40 MG TAB 80 MG PO (20:00)
[2021-04-07] MEDS: Insulin Glargine 300 UNITS/3 ML PEN 15 UNITS SC (21:16)
[2021-04-07] MEDS: Melatonin 3 MG TAB PO (21:37)
[2021-04-07 21:41] VITALS: BP 125/69; PULSE 79; RESP 16; TEMP 36.9; O2SAT 94
[2021-04-07 23:01] VITALS: PULSE 63
[2021-04-08] VITALS (7 sets, daily range): BP systolic 123–138; BP diastolic 70–76; PULSE 57–90; RESP 18–24; TEMP 36.1–36.5; O2SAT 87–94
[2021-04-08] MEDS: Famotidine 20 MG TAB PO (08:28)
[2021-04-08] MEDS: Cholecalciferol (Vitamin D3) 1,000 UNIT TAB 2000 UNITS PO (08:28)
[2021-04-08] MEDS: Ascorbic Acid 500 MG TAB 1000 MG PO (08:28)
[2021-04-08] MEDS: predniSONE 20 MG TAB 40 MG PO (08:28)
[2021-04-08] MEDS: Potassium Chloride 20 MEQ TABCR PO (08:28)
[2021-04-08] MEDS: Aspirin E.C. 81 MG TABEC PO (08:28)
[2021-04-08] MEDS: Insulin NPH-Human 300 UNITS/3 ML PEN 16 UNIT SC (08:29)
[2021-04-08] MEDS: Insulin Aspart 300 UNITS/3 ML PEN SC (08:29)
--- NOTE | 2021-04-08 08:42 | PT.INDS ---
Date of service: 04/08/21 PT Notes Visit Reasons: COVID-19, pneumonia with hypoxia, DKA Inpatient Physical Therapy Discharge Summary Date: 04/08/21 Dates of Service: 04/05/2021 through 04/06/2021 This is a clinical summary of care provided for the duration of dates listed above. No charge was made in the completion of this documentation. Referring Doctor: Shaina Michaels MD PT Orders: PT CONSULT: Limited Ability Precautions: COVID +, L UE neglect Patient Profile/Admitting Diagnosis: Admitted for respiratory failure secondary to COVID and DKA, who has suffered a right hemisphere ischemic stroke. PMHX: Prediabetes, former tobacco user Social History/Home Situation: Lives in a private home with his locally, this is a one-story ranch style home without stairs to enter. Premorbid level of function was completely independent, he was even building his own house. He is left-hand dominant Equipment Owned/DME: None Subjective: NT. See most recent REINSURANCE ANALYST notes. Objective: General Observation: NT. See most recent REINSURANCE ANALYST notes. Mental Status: NT. See most recent REINSURANCE ANALYST notes. Pain: NT. See most recent REINSURANCE ANALYST notes. Vital Signs: NT. See most recent REINSURANCE ANALYST notes. ROM: Right Upper Extremity: WNL Left Upper Extremity: Left shoulder elevation to approximately 120 degrees of flexion and scaption, elbow wrist digits are WNL Right Lower Extremity: WNL Left Lower Extremity: WNL Strength: Right Upper Extremity: Grossly 5/5 throughout Left Upper Extremity: Left shoulder flexion and abduction 4/5, elbow flexion 4/5, elbow extension 5/5, wrist flexion and extension both 4+/5, post exchange manager good and symmetrical with right side Right Lower Extremity: Grossly 5/5 Left Lower Extremity: Grossly 5/5 Sensation: Decreased left hand Bed Mobility/Transfers: Sit to stand Stand to sit independent Chair to bed independent Gait: 60 feet with no AD requiring only supervision by PT/REINSURANCE ANALYST for line management only. Without lines, patient may be made independent for up to 60 feet. Balance: Static Sitting: Normal Dynamic Sitting: Normal Static Standing: Good Dynamic Standing: Good Assessment: All PT goals have been met. No skilled services needed at this time. Patient may now be made independent inside his room for ambulation of at least 60 feet using no AD when lines are discharged. Patient lines make it unsafe for patient to navigate inside room at this time, hence the need for supervision. Goals: Goals X1 week 1. Supine-Sit independent MET 2. Sit-Supine independent MET 3. Sit-Stand independent MET 4. Stand-Sit independent MET 5. Bed-Chair independent MET 6. Chair-Bed independent MET 7. Gait household distance of at least 40 to 50 feet, without use of oxygen and right SPC MET 8. Independent with home exercise program MET 9. Balance good dynamic balance with use of SPC, passes stage IV balance test MET DISCHARGE RECOMMENDATIONS: Home when medically cleared by orthopedic surgeon. No equipment needed at this time. PT to progress to community ambulation without AD. TREATMENT CODE/TIME: NC. Thank you for the opportunity to participate in the care of this patient. April Maravilla PT, DPT, CLT [facility] [place], [place]
[2021-04-08] MEDS: Enoxaparin 80 MG/0.8 ML SYR 70 MG SC (08:44)
--- NOTE | 2021-04-08 11:38 | CMDISCH_ITS ---
- If Service Date Differs Date of service: 04/08/21 Time of Service: 11:38 LACE Index Scoring Tool - Questions: Length of Stay (in days): 14 or more Acuity (Admit via E.D.?): Yes Comorbidities: Diabetes w/o Complication E.D. Visits: 1 - Answers: Total Score: 12 Risk of Readmission: High Risk Care Management Discharge Reason for Hospitalization: Covid-19, pneumonia with hypoxia, DKA Discharge Plan: Discharge to [facility] in [place] with New SN/PT/Speech therapy services. Supplemental O2 was arranged through [facility] [place] and delivered to the home last night. Lazaro will follow up with Donovan Munoz at [facility] on 04/14/21 at 1100. Patient/Family Education Needs: Review discharge instructions, limitations and plan to follow up with community providers. ask me three. Services Needed at Discharge: Home Health Care Services ( New SN/PT/Speech therapy through [facility]), Oxygen Therapy (Through [facility] [place])
--- NOTE | 2021-04-08 19:03 | RESPIRATORY ---
Pt was sent home with 1 to 4 lpm of oxygen through [facility]
--- NOTE | 2021-04-11 07:18 | OTDS_ITS ---
Date of service: 04/11/21 Time of Service: 07:18 Occupational Therapy Notes Occupational Therapy Inpatient Discharge Summary Date: 04/11/21 Dates of Service: 04/01/21-04/07/21 Referring Doctor:Shaina Michaels MD OT Orders: Non Urgent Precautions: Fall, Covid + precautions, Full *This document serves as a summary of care, no skilled Occupational Therapy services provided on todays date* PATIENT PROFILE/ADMITTING DIAGNOSIS: Pt is a 65 year old male who was admitted through the ED for the following dx of CVA, encephalopathy, neurologial deficit, respiratory failure/ hypoxia, DM, Covid 19 and DKA. Past Medical History: Medical History (Updated 03/24/21 @ 18:59 by Shaina Michaels MD) Prediabetes Social History/Home Situation: Pt states that his baseline level of function is (I). He lives in a private home with his and states that he is currently building a home in [place] off [address] in [place]. He reports that he used to drive (I) and has no steps to enter his home or inside of his home. He had no hx of deficits that would limit him from being (I), no adaptive equipment at baseline. Equipment owned/DME: None SUBJECTIVE: NT OBJECTIVE: ROM: RUE AROM WFL L UE AROM WFL with delayed coordination STRENGTH: RUE 5/5 throughout LUE 5/5 throughout FUNCTIONAL MOBILITY/ADLS: Transfers Supine-sit (I) Sit-Stand (I) Stand-sit (I) Bed-Chair (I) BATHING: sitting in chair with max (A) Set up/clean up Upper Body: (I) UE, max (A) hair, max (A) back Lower Body: (I) (B) LE, pt denies deyvi area reporting that he tries to wash when he goes to the bathroom. DRESSING: sitting in chair with min vc throughout Upper Extremity: Min (A) don and doffing shirt and button up shirt due to lack of coordination in (L) UE and getting arm into the hole of his shirt Lower Extremity: (I) don and doffing (B) socks, pt was able to perform his underwear and pants with min (A) more for balance at this time with FWW for stabilization as needed. GROOMING: Sitting in chair min vc for brushing hair but able to perform (I) with both his (B) UE BALANCE: Static sitting Normal Dynamic Sitting Good with occasional (L) side sway Static Standing Normal Dynamic Standing Good with occasional (L) sway ASSESSMENT: Patient is a 65-year-old male referred to occupational therapy services with diagnosis of CVA, encephalopathy, neurologial deficit, respiratory failure/ hypoxia, DM, Covid 19 and DKA. Patient was able to improve his overall functional (I) however he still required O2 when medically cleared per MD. He was eager to return home and get back to working on his home. He still presented with decreased (L) UE strength and coordination but was able to compensate and i mprove this with strengthening program. Pt was discharged to his sisters home with O2 nasal cannula and medically cleared per MD. GOALS 1. Transfers (I) 2. Dressing sitting in chair (I) don and doffing shirt and pants 3. Bathing standing at sink (I) 4. Toileting on toilet (I) 5. Eating (I) PLAN OF CARE/TREATMENT PLAN: Discharge from skilled OT services. DISCHARGE RECOMMENDATIONS Based on pts current level of function, OT feels that pt would benefit from SNF vs. HH services when medically cleared per MD. TREATMENT TIME/MINUTES/CODES N/A Maru Green OTR/L [facility]
== END 2021-04-08 10:32 | disposition home health service (06) | DRG 177 ==
LOC: ER 13:45 → ICU 16:23 → MS 03-29 00:30
PROVIDERS: Family Medicine; Internal Medicine; Admitting Provider Internal Medicine; Emergency Provider Physician Assistant; Visit Provider Internal Medicine
DX: U07.1 COVID-19 (principal); J12.82 Pneumonia due to coronavirus disease 2019; E11.10 Type 2 diabetes mellitus with ketoacidosis without coma; J96.01 Acute respiratory failure with hypoxia; I63.411 Cerebral infarction due to embolism of right middle cerebral artery; G93.49 Other encephalopathy; G81.92 Hemiplegia, unspecified affecting left dominant side; Z87.891 Personal history of nicotine dependence; R20.8 Other disturbances of skin sensation; H53.462 Homonymous bilateral field defects, left side; R29.810 Facial weakness; R47.1 Dysarthria and anarthria
CPT/HCPCS: 36415; 36416; 70496; 70498; 71275; 80048; 80053; 80061; 80076; 82306; 82550; 82805; 82947; 82962; 84145; 85027; 86704; 86706; 86803; 87040; 87340; 87389; 87449; 87493; 87635; 93005; 93306; 94618; 94640; 96361; 96365; 96367; 96375; 97110; 97162; 97166; 97530; 97535; 99223; 99232; 99291; J1650; 70450; 71045; 71046; 81003; 81015; 82728; 83036; 83605; 83735; 83880; 84484; 85025; 85379; 85610; 85730; 86140; 87070; 87205; 87581; 87899; 93010; 94660; 94667; 99233; J0696; J1100; J2930; J3490; J7512

== ENCOUNTER → 2021-03-30 14:25 | Outpatient (BNVA) | payer OTHER, SELFPAY | PROVIDERS: Visit Provider Psychiatry & Neurology Neurology | DX: R69 Illness, unspecified (principal) ==

== ENCOUNTER 2021-04-14 18:39 | Outpatient (REF) | payer OTHER, SELFPAY ==
[2021-04-14 18:14] LABS: Hemoglobin A1C 13.2 % (<5.7)
[2021-04-14 18:16] LABS: Anion Gap 7.4 mmol/L (3-11); BUN 32 mg/dL (7-18); CO2 27.6 mmol/L (21.0-32.0); CREATININE 0.7 mg/dL (0.70-1.30); Calcium 8.4 mg/dL (8.5-10.1); Calculated LDL 112 mg/dL (<100); Chloride 104 mmol/L (98-107); Cholesterol 201 mg/dL (<200); Glucose 218 mg/dL (74-106); HDL Cholesterol 73 mg/dL (40-60); Potassium 4.6 mmol/L (3.5-5.1); Sodium 139 mmol/L (136-145); Triglyceride 83 mg/dL (<150)
== END 2021-04-14 18:40 | disposition home or self-care (01) ==
LOC: LBN 18:39
PROVIDERS: Visit Provider Emergency Medicine
DX: I10 Essential (primary) hypertension (principal); E11.9 Type 2 diabetes mellitus without complications
CPT/HCPCS: 80048; 80061; 83036

== ENCOUNTER 2021-12-11 22:56 | Emergency (ER) | payer OTHER, SELFPAY ==
[2021-12-11] VITALS (11 sets, daily range): BP systolic 170–174; BP diastolic 63–87; PULSE 87–98; RESP 18–35; TEMP 36.2; O2SAT 94–99
--- NOTE | 2021-12-11 23:00 | RT.EKG_ITS ---
APPROVED REPORT Exam: Resting ECG Reason for Exam: weakness Patient Location: E HR:97 bpm ECG Measurements Heart Rate 97 AXIS TX 164 P 51 QRSd 91 QRS 48 QT 353 T 13 QTc 448 Conclusion Sinus rhythm...normal P axis, V-rate 60- 99 Physician: Sinus rhythm, rate 97, T wave still slightly peaked in the anterior leads. No STEMI.
--- NOTE | 2021-12-11 23:00 | RT.EKG_ITS ---
APPROVED REPORT Exam: Resting ECG Reason for Exam: dizzy Patient Location: E HR:90 bpm ECG Measurements Heart Rate 90 AXIS WY 185 P 56 QRSd 105 QRS 64 QT 374 T 4 QTc 458 Conclusion Sinus rhythm...normal P axis, V-rate 60- [address] elevation, anterior leads...ST >0.15mV in V1-V4 PHysician: Sinus rhythm, peaked T waves in V2 and V3. No STEMI. Inverted T waves in lead III.
[2021-12-11] MEDS: Normal Saline 1,000 ML 1000 ML IV (23:31)
[2021-12-11 23:33] LABS: BE (Venous) -7 mmol/L (-2-3); HCO3 (Venous) 20 mmol/L (23-28); O2 Sat (Venous) 54 %; TCO2 (Venous) 18 mmol/L (24-29); pCO2 (Venous) 38 mmHg (41-51); pH (Venous) 7.32 (7.31-7.41); pO2 (Venous) 32 mmHg
[2021-12-11 23:35] LABS: Abs Immature Grans 0.08 10^3/uL (0.0-0.06); Absolute Lymphocyte Count 1.28 10^3/uL (1.2-3.4); Absolute Monocyte Count 0.73 10^3/uL (0.1-0.8); Basophils % 0.5; Eosinophils % 0.1; HGB 13.1 g/dL (13.5-17.5); Immature Grans % 0.5; Lymphocytes % 8.2; MCH 30.2 pg (27.0-33.0); MCHC 32.8 % (32.0-36.0); MCV 92 fL (80-95); MPV 10.6 fL (8.0-11.0); Monocytes % 4.7; Platelet Count 512 10^3/uL (130-400); RBC 4.34 10^6/uL (4.36-5.78); RDW 14.6 % (11.8-14.1); RDW-SD 49.1 fL; WBC 15.55 10^3/uL (4.4-10.8)
[2021-12-11 23:36] LABS: Absolute Basophil Count 0.08 10^3/uL (0.0-0.2); Absolute Eosinophil Count 0.02 10^3/uL (0.0-0.7); Absolute Neutrophil Count 13.37 10^3/uL (1.2-6.7)
--- NOTE | 2021-12-11 23:49 | ED.GENADUL_ITS ---
Discharge Plan Disposition Patient Disposition: [facility] Condition: Critical Discharge Details Clinical Impression: Acute subdural hematoma, Acute hyperkalemia, Acute renal failure, Hepatitis, Non-ST elevation ME (NSTEMI), Diarrhea, Vomiting, Acute dehydration Primary Care Provider: Christina,Local ED Provider: Jonathan Oliveira Home Meds and New Rx's Prescriptions: No Action (DME) Blood Glucose Test Strip See Rx Instructions .ROUTE .MEDSUPPLY Qty: 400 5RF Rx Instructions: AC and HS. Embrace test strips. E11.9. 4X daily atorvastatin 80 mg tablet 80 mg PO QHS Qty: 90 1RF phenytoin sodium extended 300 mg capsule 300 cap PO DAILY metformin 1,000 mg Tablet 1,000 mg PO BID lisinopril 10 mg Tablet 10 mg PO DAILY levetiracetam 750 mg tablet 1 tab PO DAILY aspirin 81 mg Capsule 81 mg PO DAILY aspirin 81 mg Tablet,Delayed Release (Dr/Ec) 81 mg PO DAILY Qty: 0 0RF ascorbic acid (vitamin C) [Vitamin C] 500 mg Tablet 1,000 mg PO BID Qty: 0 0RF cholecalciferol (vitamin D3) 25 mcg (1,000 unit) Tablet 2,000 units PO DAILY Qty: 0 0RF Lantus Solostar U-100 Insulin 100 unit/mL (3 mL) Insulin Pen 15 unit subcut HS Qty: 3 1RF insulin aspart U-100 [Novolog PenFill U-100 Insulin] 100 unit/mL cartridge See Rx Instructions .ROUTE .COMPLEX Qty: 3 1RF Rx Instructions: 1 unit per 10 carbs with each meal and evening snack. (DME) pen needle, diabetic [Pen Needle] 32 gauge x 5/32 needle See Rx Instructions .ROUTE .MEDSUPPLY Qty: 100 1RF Rx Instructions: For use with insulin AC/HS Medical Decision Making 66-year-old male with a past medical history of high cholesterol, diabetes, COVID-19 and notable stroke this past March, with notable chronic left-sided deficit and per family subdural hematomas this past August/September requiring evacuation of the brain in [place], who presents today for weakness, diarrhea and vomiting for the last 2 to 3 days. Family states that he has had nonbloody stool, nonbloody emesis. He has been slightly more confused compared to normal. They deny any recent falls or traumas. He is on a daily aspirin but no other blood thinners. The patient simply states that he does not feel well. However he denies any chest pain, chest tightness, chest heaviness, abdominal pain, headache, or vision changes. He was brought in by EMS. EMS adds no additional historical components. No other complaints at this time. Family denies any new medications. They deny any other complaints currently. Physical exam Demonstrate physical exam demonstrates a somewhat weak male with chronic left-sided deficits. Mucous membranes are dry. Chest and abdomen are nontender on exam. Differential is broad but includes dehydration, infectious diarrhea, new stroke. We will get a laboratory evaluation, check his stool, get a CT scan of the brain, as well as the abdomen. Monitor closely and reassess. We will rehydrate. 2:41 AM Patient's laboratory work-up has returned. Patient has a white count of 15.5, no bandemia. Mild left shift. VBG demonstrates a stable pH. PCO2 unremarkable. Electrolytes demonstrate a notably elevated potassium at 8, a creatinine of 5.9, and BUN of 100. He has transaminitis with an AST of 1148 and an ALT of 1000. Ammonia level normal. Troponin is slightly elevated at 190. Lipase normal. Bilirubin normal. Urinalysis shows no evidence of infection. COVID test is negative. The patient has not had any more bowel movements, and so we have not been able to perform stool studies. CT scan of the patient's head demonstrates prominent bilateral chronic cystic hygromas with superimposed mixed attenuation extra-axial subdural fluid collections present within the right parietal center. These are consistent with chronic subacute and acute hemorrhages within the right parietal subdural. Patient's mentation remained stable here. He shows no acute signs of sudden decompensation requiring intubation. Patient does wish to remain full code. CT scan of the chest and abdomen demonstrates a distended gallbladder but otherwise normal with no signs of cholecystitis. There is some perinephric stranding of the fat, but this is in the context of a negative urinalysis. Patient certainly demonstrates multiple complexities. EKG shows peaking of the T waves from V2 V3 and V4. Patient was given calcium gluconate, insulin 10 units subcu, D50, and 5 mg of nebulized albuterol to help with the elevated potassium. He is not a candidate for anticoagulation or heparinization for his NSTEMI secondary to his brain bleed. Additionally I feel that his NSTEMI is more likely secondary to demand ischemia rather than acute ACS. I am uncertain as to the cause of the patient acute hepatitis. We will send a hep panel for viral serology. Patient will continue to be rehydrated for his renal failure and hyperkalemia. We will reach out. Further neurosurgical consult and transfer. 3:21 AM I spoken with [facility] Dr. Mcgee, Dr. Castillo, and Dr Turner. They agree with the plan. Recommend transfer to [facility] ICU. Patient will be admitted under Dr. Bui. Patient's repeat blood work has returned, his potassium is going down at 7.2. Creatinine is stable. EKG is unchanged. Patient's neuro status remained stable. No indication for emergent intubation currently. Patient will be transferred to [facility] ICU. I have extensively reviewed the treatment plan with the patient. I have addressed all patient concerns at this time. I have also discussed the plan with the admitting physician and they agree with the current assessment and plan and have agreed to assume responsibility f or the patient. All parties demonstrate verbal understanding and agreement with our assessment and plan at this time. The documentation in this chart was dictated using [employer] dictation software. Please excuse any dictation errors. At time of transfer the patient was reassessed and continued to demonstrate No signs of acute respiratory distress requiring intubation, hemodynamic instability requiring pressor support, or rapidly declining mental status requiring intubation. The patient is stable for transport. EKG 23: 09 Sinus rhythm, peaked T waves in V2 and V3. No STEMI. Inverted T waves in lead III. EKG 2: 25 Sinus rhythm, rate 97, T wave still slightly peaked in the anterior leads. No STEMI. IMPRESSION: 1. There are prominent bilateral chronic cystic hygromas present. There is a superimposed mixed attenuation extra-axial subdural fluid collection present within the right parietal region measuring 2.2 x 10.6 x 6.5 cm. This is consistent with chronic, subacute and probably acute hemorrhage within the right parietal subdural extra-axial space. 2. There is a craniotomy defect with small repair plates present within the right parietal region consistent with recent surgical intervention. 3. Poor dentition with multiple dental caries and periapical abscesses. Thank you for allowing us to participate in the care of your patient. Dictated and Authenticated by: Mark Cabrera MD 12/12/2021 1:53 AM Eastern Time ([place] & [place]) IMPRESSION: 1. Perinephric stranding of fat which could have several possible etiologies including scarring, third spacing of fluid, inflammatory process or infection, including pyelonephritis. 2. Gastric distension. 3. Colonic diverticula. 4. The gallbladder is distended but otherwise normal. Gallbladder distention is a nonspecific finding and can be related to patient fasting state. Correlate clinically. Thank you for allowing us to participate in the care of your patient. Dictated and Authenticated by: Daryl Morley DO 12/12/2021 2:08 AM Eastern Time ([place] & [place]) IMPRESSION: 1. Fluid minimally distends distal esophagus. Correlate clinically for the presence of GERD. 2. Coronary artery disease. FINDINGS: Brain: There is diffuse cerebral atrophy. There are chronic bilateral cystic hygromas present. There is a superimposed mixed attenuation extra-axial subdural fluid collection present within the right parietal region measuring 2.2 x 10.6 x 6.5 cm. This is consistent with chronic, subacute and probably acute hemorrhage within the right parietal subdural extra-axial space. There is a small air collection present along the right parietal region. There is moderate to severe mass effect with effacement of the gyri and sulci of the parietal lobe. There is approximately 4.4 mm of leftward shift from the midline of the tentorium. Low-attenuation areas seen within the substance of the white and plascencia matter within the right parietal region consistent with subacute and chronic cerebral ischemia/infarcts. There head is been removal of the left ocular lens. Cerebral ventricles: The ventricles are mildly prominent. Paranasal sinuses: Mucoperiosteal thickening consistent with chronic sinusitis. No air-fluid levels to suggest evidence of acute sinusitis. Mastoid air cells: Visualized mastoid air cells are well aerated. Dental: There is extremely poor dentition with multiple active dental caries and periapical abscesses present within the upper alveolar ridge. Bones/joints: There is a craniotomy defect with small repair plates present within the right parietal region consistent with recent surgical intervention. Soft tissues: The extra-axial soft tissues are unremarkable . No surgical skin nishi present. FINDINGS: Lungs: Areas of scarring and or subsegmental atelectasis in each lung. No dense parenchymal consolidation. Pleural spaces: No pneumothorax or pleural effusion. Heart: Heart normal in size. Coronary artery calcifications. No pericardial effusion. Mediastinal space: Fluid minimally distends distal esophagus. Lymph nodes: No adenopathy. Vasculature: No aortic aneurysm. Scattered atherosclerotic calcifications. Bones/joints: The spine demonstrates mild degenerative changes at multiple level s. Soft tissues: Unremarkable. FINDINGS: Liver: Normal. No mass. Gallbladder and bile ducts: No calcified gallstones or gallbladder wall thickening. Gallbladder minimally distended. No biliary ductal dilatation. Pancreas: Normal. No ductal dilation. Spleen: Normal. No splenomegaly. Adrenal glands: Normal. No mass. Kidneys and ureters: No radiopaque renal or ureteric calculi. No hydronephrosis. There is moderate bilateral perinephric fat stranding. Stomach and bowel: Gastric distension. No dilated loops of small bowel or colonic dilatation. No dilated loops of small bowel or colonic dilatation. Multiple colonic diverticula. Appendix: No evidence of appendicitis. Intraperitoneal space: No free intraperitoneal gas or ascites. Vasculature: No aortic aneurysm. Atherosclerosis. Lymph nodes: Unremarkable. No enlarged lymph nodes. Urinary bladder: Unremarkable as visualized. Reproductive: Unremarkable as visualized. Bones/joints: The spine demonstrates mild degenerative changes at multiple l evels. Soft tissues: Unremarkable. HPI General Date/Time Provider Initiated Documentation: 12/11/21 23:03 . HPI Narrative: 66-year-old male with a past medical history of high cholesterol, diabetes, COVID-19 and notable stroke this past March, with notable chronic left-sided deficit and per family subdural hematomas this past August/September requiring evacuation of the brain in [place], who presents today for weakness, diarrhea and vomiting for the last 2 to 3 days. Family states that he has had nonbloody stool, nonbloody emesis. He has been slightly more confused compared to normal. They deny any recent falls or traumas. He is on a daily aspirin but no other blood thinners. The patient simply states that he does not feel well. However he denies any chest pain, chest tightness, chest heaviness, abdominal pain, headache, or vision changes. He was brought in by EMS. EMS adds no additional historical components. No other complaints at this time. Family denies any new medications. They deny any other complaints currently. Related Data Home Medications Medication Instructions Recorded Confirmed ascorbic acid (vitamin C) 500 mg 1,000 mg PO BID #0 tabs 04/06/21 04/14/21 tablet (Vitamin C) aspirin 81 mg tablet,delayed 81 mg PO DAILY #0 tabs 04/06/21 04/14/21 release cholecalciferol (vitamin D3) 25 2,000 units PO DAILY #0 tabs 04/06/21 04/14/21 mcg (1,000 unit) tablet insulin aspart U-100 100 unit/mL See Rx Instructions .Route 04/07/21 04/14/21 subcutaneous cartridge (Novolog .COMPLEX #3 mL PenFill U-100 Insulin aspart) insulin glargine 100 unit/mL (3 15 unit (0.15 mL) subcut HS #3 mL 04/07/21 04/14/21 mL) subcutaneous pen (Lantus Solostar U-100 Insulin) pen needle, diabetic 32 gauge x #100 ea 04/09/21 04/14/21 (Pen Needle) blood sugar diagnostic (Blood #400 ea 04/22/21 Glucose Test strips) atorvastatin 80 mg tablet 80 mg PO QHS #90 tabs 04/29/21 aspirin 81 mg capsule 81 mg PO DAILY 12/11/21 12/11/21 levetiracetam 750 mg tablet 1 tab PO DAILY 12/11/21 12/11/21 lisinopril 10 mg tablet 10 mg PO DAILY 12/11/21 12/11/21 metformin 1,000 mg tablet 1,000 mg PO BID 12/11/21 12/11/21 phenytoin sodium extended 300 mg 300 cap PO DAILY 12/11/21 12/11/21 capsule Previous Rx's Medication Instructions Recorded ascorbic acid (vitamin C) 500 mg 1,000 mg PO BID #0 tabs 04/06/21 tablet (Vitamin C) aspirin 81 mg tablet,delayed 81 mg PO DAILY #0 tabs 04/06/21 release cholecalciferol (vitamin D3) 25 2,000 units PO DAILY #0 tabs 04/06/21 mcg (1,000 unit) tablet insulin aspart U-100 100 unit/mL See Rx Instructions .Route 04/07/21 subcutaneous cartridge (Novolog .COMPLEX #3 mL PenFill U-100 Insulin aspart) insulin glargine 100 unit/mL (3 15 unit (0.15 mL) subcut HS #3 mL 04/07/21 mL) subcutaneous pen (Lantus Solostar U-100 Insulin) pen needle, diabetic 32 gauge x #100 ea 04/09/21 (Pen Needle) blood sugar diagnostic (Blood #400 ea 04/22/21 Glucose Test strips) atorvastatin 80 mg tablet 80 mg PO QHS #90 tabs 04/29/21 Allergies Allergy/AdvReac Type Severity Reaction Status Date / Time No Known Allergies Allergy Unverified 12/11/21 23:03 General Stated Complaint: Nausea/Vomit/Diar KRISTAL: 3 Review of Systems All systems reviewed & are unremarkable except as noted in HPI and below PFSH All Active Problems (Updated 12/12/21 @ 02:48 by Jonathan Oliveira DO) Acute subdural hematoma (Acute) Acute hyperkalemia (Acute) Acute renal failure (Acute) Hepatitis (Acute) Non-ST elevation ME (NSTEMI) (Acute) Diarrhea (Acute) Vomiting (Acute) Acute dehydration (Acute) Cerebrovascular accident (CVA) associated with severe acute respiratory syndrome coronavirus 2 (SARS-CoV-2) infection (Acute) Acute ischemic cerebrovascular accident (CVA) involving right middle cerebral artery territory (Acute) Neurological deficit present (Acute) Respiratory failure with hypoxia (Acute) Discharge planning issues (Acute) DVT prophylaxis (Acute) Hypoxia (Acute) Newly diagnosed diabetes (Acute) COVID-19 (Acute) Medical History Prediabetes Family History Father Heart disease Paternal Aunt Stroke Mother Diabetes Cancer lymphoma Social History Smoking/Tobacco Use Status: Former Tobacco Use Tobacco: How many years used: 40 Smoking risk assessment performed?: Yes Alcohol Intake: former Substance use type: does not use Do you feel safe at home: Yes Do you feel safe in your relationship?: Yes Exam Narrative Exam Narrative: 1.Const: Well-nourished, Well-developed, appearing stated age 2.Eyes: PERRL, no conjunctival injection, and symmetrical lids. 3.ENT: Atraumatic external nose and ears. Dry MM. Neck: Symmetric, trachea midline, No thyromegaly. Left facial droop 4.CVS: +S1/S2, No murmurs or gallops. Peripheral pulses 2+ and equal in all extremities. Brisk capillary refill in all extremities. 5.RESP: Unlabored respiratory effort. Clear to auscultation bilaterally. No wheezes rales or rhonchi 6.GI: Soft, Nontender/Nondistended, No hepatosplenomegaly. No guarding or rebound. 7.MSK: Normocephalic/Atraumatic, Extremities w/o deformity or ttp No cyanosis or clubbing, normal movement notable weakness of the left upper and left lower extremities. Left-sided facial droop present. Patient states this is his baseline. 8.Skin: Warm, Dry. No rashes or lesions. 9.Neuro: Left-sided facial droop, and left upper and lower extremity weakness. Patient and family state that this is his baseline and unchanged since his stroke in March 2021. 10.Psych: (AAO) x3. Appropriate mood and affect Course Vital Signs Vital signs: Vital Signs Temperature 36.2 C L 12/11/21 22:58 Pulse 90 12/11/21 22:58 Respiratory Rate 18 12/11/21 22:58 Blood Pressure 174/87 H 12/11/21 22:58 Pulse Oximetry 98 12/11/21 22:58 Temperature 36.2 C L 12/11/21 22:58 Pulse 90 12/11/21 22:58 Respiratory Rate 18 12/11/21 22:58 Respiratory Effort 12/11/21 23:35 Blood Pressure 174/87 H 12/11/21 22:58 Pulse Oximetry 98 12/11/21 22:58 Pain Level 0 12/11/21 22:58 Lab/Test Results Lab/Test Results: Laboratory Tests Range/Units 12/11/21 12/11/21 12/11/21 23:22 23:22 23:22 WBC (4.4-10.8) 10^3/uL 15.55 H RBC (4.36-5.78) 10^6/uL 4.34 L Hgb (13.5-17.5) g/dL 13.1 L Hct (40.0-50.0) % 40.0 MCV (80-95) fL 92 MCH (27.0-33.0) pg 30.2 MCHC (32.0-36.0) % 32.8 RDW (11.8-14.1) % 14.6 H Plt Count (130-400) 10^3/uL 512 H MPV (8.0-11.0) fL 10.6 Immature Gran % 0.5 Neutrophils % 86.0 Lymphocytes % 8.2 Monocytes % 4.7 Eosinophils % 0.1 Basophils % 0.5 Nucleated RBC % (0.0-0.3) % 0.0 Absolute Neutrophils (1.2-6.7) 10^3/uL 13.37 H Absolute Lymphocytes (1.2-3.4) 10^3/uL 1.28 Absolute Monocytes (0.1-0.8) 10^3/uL 0.73 Absolute Eosinophils (0.0-0.7) 10^3/uL 0.02 Absolute Basophils (0.0-0.2) 10^3/uL 0.08 VBG pH (7.31-7.41) 7.32 VBG pCO2 (41-51) mmHg 38 L VBG pO2 mmHg 32 VBG HCO3 (23-28) mmol/L 20 L VBG Total CO2 (24-29) mmol/L 18 L VBG O2 Saturation % 54 VBG Base Excess (-2-3) mmol/L -7 L VBG Lactate (0.6-1.4) mmol/L 2.0 H Critical Care Time Critical Care Time Critical Care Time: Yes Total Critical Care Time: 50 Attestation: Upon my evaluation, this patient had a high probability of imminent or life- threatening deterioration, which required my direct attention, intervention, and personal management. I have personally provided 50 minutes of critical care time exclusive of time spent on separately billable procedures. Time includes review of laboratory data, radiology results, discussion with consultants, and monitoring for potential decompensation. Interventions were performed as documented.
[2021-12-11 23:53] LABS: Albumin 2.5 g/dL (3.4-5.0); Alkaline Phosphatase 244 U/L (46-116); Bilirubin, Total 0.4 mg/dL (0.2-1.0); CO2 20.3 mmol/L (21.0-32.0); Calcium 9.5 mg/dL (8.5-10.1); Chloride 96 mmol/L (98-107); Estimated GFR 9.58 (mL/min/1.73m2); Glucose 148 mg/dL (74-106); Sodium 136 mmol/L (136-145); Total Protein 7.7 g/dL (6.4-8.2)
[2021-12-11 23:54] LABS: ALT 1000 U/L (16-63); Anion Gap 19.7 mmol/L (3-11); Lipase 120 U/L (73-393)
[2021-12-11 23:55] LABS: Ammonia < 10 umol/L (11-32)
[2021-12-11 23:56] LABS: AST 1148 U/L (15-37)
[2021-12-12] VITALS (134 sets, daily range): BP systolic 99–196; BP diastolic 47–125; PULSE 85–115; RESP 12–36; TEMP 37; O2SAT 88–100
--- NOTE | 2021-12-12 | DI.CT_ITS ---
Exam(s) CT HEAD WO EXAM: CT HEAD WO CLINICAL HISTORY: hx of subdurals, now vomiting. TECHNIQUE: Imaging Protocol: Axial computed tomography images with coronal and sagittal reformatted images were created and reviewed COMPARISON: CT CT BRAIN NECK CTA from 03/31/2021 FINDINGS: There is a craniotomy defect with small plates in the right parietal region. There is a prominent mixed attenuation subdural hematoma over the entire right convexity, measuring u p to 2.3 cm thick. This has the appearance of a subacute subdural hematoma and does also exhibits so me acute hemorrhage density. There is also small air collection in this subdural collection subjacen t to the craniotomy site. There is significant mass effect with effacement of the sulci of the right parietal lobe and there is 4 millimeters shift to the left of the midline. There are also areas of hypodensity within the right parietal region, most probably infarcts. On the opposite-left side there is a smaller nonacute appearing subdural hematoma which measures up 6 millimeters thick. Less associated effacement of sulci. No abnormal hypodense areas in the left si de of the brain. IMPRESSION: Bilateral subdural hematomas, right larger than left. These have the appearance of subacute subdural hematomas but the right-side also exhibits more acute density therein as well as air collection is s ubjacent to the right parietal craniotomy site.. Mass effect as described above. Study was 1st read by [facility] with apparent telephone communication at that time to the ER physician. RADIATION DOSE DELIVERED: 1,602.44mGy.cm Total DLP DATA REPOSITORY: All CT scans at this facility are submitted to the National Radiology Data Registry (NRDR) Dose Index Registry (DIR) with the [employer] ([employer]). RADIATION OPTIMIZATION: All CT scans at this facility use at least one of these dose optimization te chniques: automated exposure control; mA and/or kV adjustment per patient size (includes targeted exa ms where dose is matched to clinical indication); or iterative reconstruction.
[2021-12-12 00:04] LABS: BUN 108 mg/dL (7-18); CREATININE 5.9 mg/dL (0.70-1.30); Troponin I 191 ng/L (<or=60)
--- NOTE | 2021-12-12 00:10 | DI.CT_ITS ---
Exam(s) CT CHEST/ABD/PEL WO EXAM: CT CHEST/ABD/PEL WO CLINICAL HISTORY: vomiting, diarrhea, stroke, dehydration. TECHNIQUE: Imaging Protocol: Axial computed tomography images with coronal and sagittal reformatted images were created and reviewed CONTRAST MATERIAL: Intravenous: none Oral: None COMPARISON: No exams were available for comparison FINDINGS: CHEST: Images are degraded by motion artifact LUNGS: Mild peripheral patchy infiltrate noted. This is most prominent towards the lung bases. Ther e are no associated pleural effusions. No distinct ominous nodules. No significant focal findings i n the trachea and mainstem bronchi. MEDIASTINUM: No obvious hilar nor mediastinal adenopathy. Visualized thyroid unremarkable.The esophag us is distended throughout its entire length and fluid-filled. CARDIAC: Heart size is normal. There is no pericardial effusion.Caliber of the thoracic aorta is wit hin normal limits. OSSEOUS: No significant osseous lesions.. ABDOMEN: There is no ascites. LIVER: There are no obvious focal hepatic lesions evident of this noninfused study. GALLBLADDER/BILIARY: Gallbladder is somewhat distended but does not appear edematous. No radiopaque gallstones evident. CBD is not dilated. PANCREAS: No evidence of obvious pancreatic mass nor dilatation of the pancreatic duct. SPLEEN: Spleen is not enlarged. No obvious intrasplenic lesions. ADRENALS: There are no significant adrenal masses. KIDNEYS: No calculi nor hydronephrosis. No obvious solid renal masses. No obvious cysts. No calculi. No hydronephrosis nor hydroureter. There is moderate bilateral perinephric streaking, relatively s ymmetrical. ABDOMINAL AORTA: Abdominal aorta is not enlarged. LYMPH NODES: There is no retroperitoneal nor para-aortic adenopathy. ABDOMINAL WALL/GI: No evidence of significant anterior abdominal wall nor inguinal hernia. No evidence of bowel obstruction. PELVIS: LYMPH NODES: There is no intrapelvic nor inguinal adenopathy. GI: No evidence of appendicitis.There is sigmoid diverticulosis. No obvious acute diverticulitis. URINARY BLADDER: No calculi nor obvious masses evident REPRODUCTIVE: Prostate is not enlarged. Seminal vesicles unremarkable. OSSEOUS: No significant osseous lesions. No fractures evident. IMPRESSION: 1. Patchy lung infiltrates. No associated pleural effusions nor obvious intrathoracic adenopathy. R ecommend testing forCovid 19 2. The esophagus is distended throughout its length and filled with fluid. Correlate clinically. Th is patient may be aspirating. Recommend endoscopy. The stomach is also noted to be mildly distended . 3. Avoid diverticulosis but no evidence of acute diverticulitis. The gallbladder is mildly distended but otherwise unremarkable. This is a nonspecific finding and ma y be related to fasting state. Recommend follow-up ultrasound. Symmetrical bilateral perinephric stranding. Study 1st read by [facility]. RADIATION DOSE DELIVERED: 1,356.02mGy.cm Total DLP DATA REPOSITORY: All CT scans at this facility are submitted to the National Radiology Data Registry (NRDR) Dose Index Registry (DIR) with the [employer] ([employer]). RADIATION OPTIMIZATION: All CT scans at this facility use at least one of these dose optimization te chniques: automated exposure control; mA and/or kV adjustment per patient size (includes targeted exa ms where dose is matched to clinical indication); or iterative reconstruction.
[2021-12-12] MEDS: Calcium Gluconate 4.65 MEQ/10 ML VIAL 4.65 MG IVP (00:21)
[2021-12-12] MEDS: Insulin REGULAR-Human 100 UNITS/ML UNIT 10 UNITS SC (00:21)
[2021-12-12] MEDS: Ondansetron 4 MG/2 ML VIAL IVP (00:21)
[2021-12-12] MEDS: Normal Saline 1,000 ML 1000 ML IV (00:22)
[2021-12-12] MEDS: Albuterol 2.5 MG/3 ML INH SOLN VIAL 5 MG UPD (00:22)
[2021-12-12] MEDS: Normal Saline 50 ML 150 ML (00:31)
[2021-12-12] MEDS: Dextrose 50%-Water 25 GM/50 ML SYR IVP (00:34)
[2021-12-12 00:48] LABS: Source Nasal/Nares
[2021-12-12 01:42] LABS: COVID-19 PCR Negative (Negative)
--- NOTE | 2021-12-12 01:54 | DI.VRAD_ITS ---
Addendum created by Mark Cabrera MD on 12/12/2021 2:02:42 AM EDT: THIS REPORT CONTAINS FINDINGS THAT MAY BE CRITICAL TO PATIENT CARE. The findings were verbally communicated via telephone conference with GAUDENCIO ELLIOTT at 2:02 AM EDT on 12/12/2021. The findings were acknowledged and understood. Initial report created on 12/12/2021 1:53:48 AM EDT: PROCEDURE INFORMATION: Exam: CT Head Without Contrast Exam date and time: 12/12/2021 1:18 AM Age: 66 years old Clinical indication: Other: HX of subdurals, now vomiting; Prior surgery; Surgery date: 1-6 months; Surgery type: Unknown time and type of surgery TECHNIQUE: Imaging protocol: Computed tomography of the head without contrast. Radiation optimization: All CT scans at this facility use at least one of these dose optimization techniques: automated exposure control; mA and/or kV adjustment per patient size (includes targeted exams where dose is matched to clinical indication); or iterative reconstruction. COMPARISON: CT HEAD WO 03/30/2021 1:32 PM FINDINGS: Brain: There is diffuse cerebral atrophy. There are chronic bilateral cystic hygromas present. There is a superimposed mixed attenuation extra-axial subdural fluid collection present within the right parietal region measuring 2.2 x 10.6 x 6.5 cm. This is consistent with chronic, subacute and probably acute hemorrhage within the right parietal subdural extra-axial space. There is a small air collection present along the right parietal region. There is moderate to severe mass effect with effacement of the gyri and sulci of the parietal lobe. There is approximately 4.4 mm of leftward shift from the midline of the tentorium. Low-attenuation areas seen within the substance of the white and plascencia matter within the right parietal region consistent with subacute and chronic cerebral ischemia/infarcts. There head is been removal of the left ocular lens. Cerebral ventricles: The ventricles are mildly prominent. Paranasal sinuses: Mucoperiosteal thickening consistent with chronic sinusitis. No air-fluid levels to suggest evidence of acute sinusitis. Mastoid air cells: Visualized mastoid air cells are well aerated. Dental: There is extremely poor dentition with multiple active dental caries and periapical abscesses present within the upper alveolar ridge. Bones/joints: There is a craniotomy defect with small repair plates present within the right parietal region consistent with recent surgical intervention. Soft tissues: The extra-axial soft tissues are unremarkable . No surgical skin nishi present. IMPRESSION: 1. There are prominent bilateral chronic cystic hygromas present. There is a superimposed mixed attenuation extra-axial subdural fluid collection present within the right parietal region measuring 2.2 x 10.6 x 6.5 cm. This is consistent with chronic, subacute and probably acute hemorrhage within the right parietal subdural extra-axial space. 2. There is a craniotomy defect with small repair plates present within the right parietal region consistent with recent surgical intervention. 3. Poor dentition with multiple dental caries and periapical abscesses. Dictated and Authenticated by: Mark Cabrera MD. Ordering:ENRRIQUE Castillo MD
--- NOTE | 2021-12-12 02:08 | DI.VRAD_ITS ---
PROCEDURE INFORMATION: Exam: CT Chest Without Contrast; Diagnostic Exam date and time: 12/12/2021 1:24 AM Age: 66 years old Clinical indication: Vomiting and other: Diarrhea; Patient HX: Weakness, HX stroke, vomiting, eval for pneumonia. Vomiting, diarrhea, dehydration TECHNIQUE: Imaging protocol: Diagnostic computed tomography of the chest without contrast. Radiation optimization: All CT scans at this facility use at least one of these dose optimization techniques: automated exposure control; mA and/or kV adjustment per patient size (includes targeted exams where dose is matched to clinical indication); or iterative reconstruction. Other technique: Motion degraded study. COMPARISON: CT CHEST PE CTA 03/24/2021 11:16 AM FINDINGS: Lungs: Areas of scarring and or subsegmental atelectasis in each lung. No dense parenchymal consolidation. Pleural spaces: No pneumothorax or pleural effusion. Heart: Heart normal in size. Coronary artery calcifications. No pericardial effusion. Mediastinal space: Fluid minimally distends distal esophagus. Lymph nodes: No adenopathy. Vasculature: No aortic aneurysm. Scattered atherosclerotic calcifications. Bones/joints: The spine demonstrates mild degenerative changes at multiple levels. Soft tissues: Unremarkable. IMPRESSION: 1. Fluid minimally distends distal esophagus. Correlate clinically for the presence of GERD. 2. Coronary artery disease. PROCEDURE INFORMATION: Exam: CT Abdomen And Pelvis Without Contrast Exam date and time: 12/12/2021 1:24 AM Age: 66 years old Clinical indication: Vomiting and other: Diarrhea; Patient HX: Weakness, HX stroke, vomiting, eval for pneumonia. Vomiting, diarrhea, dehydration TECHNIQUE: Imaging protocol: Computed tomography of the abdomen and pelvis without contrast. Radiation optimization: All CT scans at this facility use at least one of these dose optimization techniques: automated exposure control; mA and/or kV adjustment per patient size (includes targeted exams where dose is matched to clinical indication); or iterative reconstruction. COMPARISON: CT CHEST PE CTA 03/24/2021 11:16 AM FINDINGS: Liver: Normal. No mass. Gallbladder and bile ducts: No calcified gallstones or gallbladder wall thickening. Gallbladder minimally distended. No biliary ductal dilatation. Pancreas: Normal. No ductal dilation. Spleen: Normal. No splenomegaly. Adrenal glands: Normal. No mass. Kidneys and ureters: No radiopaque renal or ureteric calculi. No hydronephrosis. There is moderate bilateral perinephric fat stranding. Stomach and bowel: Gastric distension. No dilated loops of small bowel or colonic dilatation. No dilated loops of small bowel or colonic dilatation. Multiple colonic diverticula. Appendix: No evidence of appendicitis. Intraperitoneal space: No free intraperitoneal gas or ascites. Vasculature: No aortic aneurysm. Atherosclerosis. Lymph nodes: Unremarkable. No enlarged lymph nodes. Urinary bladder: Unremarkable as visualized. Reproductive: Unremarkable as visualized. Bones/joints: The spine demonstrates mild degenerative changes at multiple levels. Soft tissues: Unremarkable. IMPRESSION: 1. Perinephric stranding of fat which could have several possible etiologies including scarring, third spacing of fluid, inflammatory process or infection, including pyelonephritis. 2. Gastric distension. 3. Colonic diverticula. 4. The gallbladder is distended but otherwise normal. Gallbladder distention is a nonspecific finding and can be related to patient fasting state. Correlate clinically. Dictated and Authenticated by: Daryl Morley MD. Ordering:ENRRIQUE Castillo MD
[2021-12-12 02:21] LABS: Bilirubin Negative (Negative); Blood Large (Negative); Clarity Sl Cloudy (Clear); Glucose Negative (Negative); Ketones Trace mg/dL (Negative); Leukocyte Esterase Negative (Negative); Nitrite Negative (Negative); Urobilinogen 0.2 EU/dL (Up TO 0.2)
[2021-12-12 02:37] LABS: Bacteria Rare HPF (Negative); Casts Negative LPF (Negative); Crystals Few Amorphous HPF (Negative); Epithelial Cells Rare HPF (Negative); Mucus Negative (Negative); Other Cells Moderate Renal (Negative); WBC 0-2 HPF (0-5)
[2021-12-12 02:38] LABS: C & S Indicated? No
[2021-12-12 02:49] LABS: Anion Gap 19.1 mmol/L (3-11); CO2 17.9 mmol/L (21.0-32.0); Calcium 8.8 mg/dL (8.5-10.1); Chloride 99 mmol/L (98-107); Estimated GFR 9.58 (mL/min/1.73m2); Glucose 228 mg/dL (74-106); Sodium 136 mmol/L (136-145)
[2021-12-12 03:19] LABS: BUN 105 mg/dL (7-18)
[2021-12-12 03:20] LABS: CREATININE 5.9 mg/dL (0.70-1.30); Potassium 7.2 mmol/L (3.5-5.1); Troponin I 278 ng/L (<or=60)
[2021-12-12 03:35] LABS: PTT Activated 21.9 sec (21.0-27.5); Prothrombin Time 9.6 sec (9.3-11.0)
[2021-12-12 03:44] LABS: Acetaminophen < 2 ug/mL (10-30)
--- NOTE | 2021-12-12 04:23 | DI.RAD_ITS ---
Exam(s) XR PORTABLE CHEST AP POST LINE EXAM: XR PORTABLE CHEST AP POST LINE CLINICAL HISTORY: post intubation. TECHNIQUE: 2D digital imaging was performed. COMPARISON: CR XR PORTABLE CHEST AP from 04/06/[address] CHEST/ABD/PEL WO from 12/12/2021 FINDINGS: Single AP portable view. Patient is now intubated. Distal tip of the endotracheal tube is above the nano the infraclavicula r level. There is also an NG tube noted in the fundus of the stomach. Heart size is upper normal. The mediastinum is not widened. Patchy infiltrates are noted in both lung ferreira. There are no obvious pleural effusions. No pneumo thorax. No fractures. IMPRESSION: Bilateral infiltrates. No pleural effusions. ET tube in satisfactory position. NG tube is in the gastric fundus DATA REPOSITORY: RADIATION DOSE DELIVERED: All CT scans at this facility use at least one of these dose optimization techniques: automated exposure control; mA and/or kV adjustment per patient size (includes targeted e xams where dose is matched to clinical indication); or iterative reconstruction.
[2021-12-12] MEDS: Pantoprazole 40 MG VIAL IVP (04:30)
[2021-12-12] MEDS: FAMOTIDINE 20 MG in Normal Saline 100 ML 400 MG IVPB (04:30)
[2021-12-12] MEDS: Etomidate 20 MG/10 ML VIAL IVP (04:46)
[2021-12-12] MEDS: Rocuronium 50 MG/5 ML SYR 100 MG IVP (04:47)
[2021-12-12] MEDS: PROPOFOL 1,000 MG/100 ML BTL 7.365 MG IVPB (04:50)
--- NOTE | 2021-12-12 05:10 | DI.VRAD_ITS ---
PROCEDURE INFORMATION: Exam: XR Chest Exam date and time: 12/12/2021 4:45 AM Age: 66 years old Clinical indication: Device placement; Other: Intubation, og tube TECHNIQUE: Imaging protocol: Radiologic exam of the chest. Views: 1 view. COMPARISON: CT CHEST/ABD/PEL WO 12/12/2021 1:24 AM FINDINGS: Tubes, catheters and devices: Tip of ET tube overlies trachea approximately 5 cm above nano. Distal portion of enteric tube overlies left upper quadrant. Lungs: Areas of subsegmental atelectasis and or scarring in each lung. No consolidation. Pleural spaces: Unremarkable. No pleural effusion. No pneumothorax. Heart/Mediastinum: Unremarkable. No cardiomegaly. Bones/joints: Degenerative changes. IMPRESSION: 1. ET tube appears in satisfactory position. 2. Distal portion of enteric tube in gastric lumen. Dictated and Authenticated by: Daryl Morley MD. Ordering:ENRRIQUE Castillo MD
--- NOTE | 2021-12-12 05:13 | NUR.NOTE ---
Addendum entered by Alysia Santizo 12/12/21 05:29: Propofol rate started at 20mcg/kg/min, not mg/kg/min. Original Note: Nursing Note: Around 04:30, patient was to be transferred to [facility] via [place]. When tranferring him from ER stretcher to EMS stretcher, patient vomited dark vomitus that tested positive for blood. Dr. Oliveira determined his status to increase in acuity and that intubation was necessary. RT was paged immediately and the room set up while waiting their arrival. RT arrived around 04:44. Procedure reviewed by provider with this scribe, Merry Childers, DAVE, and RT. Provider ordered 20mg Etomidate to be administered via IV; administration occurred at 04:46 in the right antecubital. Provider ordered 100mg rocuronium via IV; administration occurred at 04:47 in the right antecubital. At 04:47 the endotracheal tube, size 7.0, was placed at 23cm at the teeth and placement confirmed via auscultation. At 04:50, propofol concentration 1000mg/100mL was started at 20mg/kg/min, coming to 7.4mL/hr for patient's weight of 61.4kg. At 04:55, orogastric tube of 14fr placed at 70cm at the lip. Chest x-ray confirming endotracheal and orogastric tubes placements completed at 05:56.
[2021-12-12] MEDS: fentaNYL 1,000 MCG in Normal Saline 80 ML 6.137 MCG IV (05:55)
[2021-12-12] MEDS: diazePAM 10 MG/2 ML SYR IVP (06:28)
[2021-12-13 12:10] LABS: Hepatitis A Antibody IgM Negative (Negative); Hepatitis B Core Antibody Negative (Negative); Hepatitis B surface Ag Negative (Negative); Hepatitis C Ab w Rflx HCV PCR Negative (Negative)
== END 2021-12-12 07:44 | disposition short-term general hospital (02) ==
LOC: ER 12-12 02:52
PROVIDERS: Emergency Provider Student in an Organized Health Care Education/Training Program
DX: I62.01 Nontraumatic acute subdural hemorrhage (principal); E87.5 Hyperkalemia; N17.9 Acute kidney failure, unspecified; E11.22 Type 2 diabetes mellitus with diabetic chronic kidney disease; I21.4 Non-ST elevation (NSTEMI) myocardial infarction; K75.9 Inflammatory liver disease, unspecified; E86.0 Dehydration; R19.7 Diarrhea, unspecified; R11.10 Vomiting, unspecified
CPT/HCPCS: 31500; 36415; 36416; 51701; 71045; 71250; 80048; 80053; 82805; 82962; 83690; 86704; 86709; 86803; 87329; 87340; 87493; 87505; 87635; 93005; 94640; 96361; 96365; 96366; 96368; 96375; 99291; 70450; 74176; 80329; 81003; 81015; 82140; 83605; 84484; 85025; 85610; 85730; 87177; 93010; 94002; J0610; J2405; J3010; J3360; J7613